=== PATIENT | female | born 1950 | race Caucasian/White ===

== ENCOUNTER → 2019-09-23 15:11 | Outpatient (BNVA) | payer MEDICARE, BC, SELFPAY | PROVIDERS: Family Provider Family Medicine; PCP Family Medicine; Visit Provider Family Medicine | DX: E11.9 Type 2 diabetes mellitus without complications (principal); I15.0 Renovascular hypertension; E78.1 Pure hyperglyceridemia; R53.83 Other fatigue | CPT/HCPCS: 36415; 80053; 80061; 82044; 83036; 84443; 85007; 85027 ==

== ENCOUNTER → 2019-10-19 14:45 | Outpatient (BNVA) | payer MEDICARE, BC, SELFPAY | PROVIDERS: Family Provider Family Medicine; PCP Family Medicine; Visit Provider Specialist | DX: G31.84 Mild cognitive impairment of uncertain or unknown etiology (principal) | CPT/HCPCS: 96116; 99213 ==

== ENCOUNTER 2020-01-20 13:34 | Outpatient (CLI) | payer MEDICARE, BC, SELFPAY ==
--- NOTE | 2020-01-20 13:00 | MM_ITS ---
WS: [id number] BILATERAL DIGITAL SCREENING MAMMOGRAM WITH CAD CLINICAL INFORMATION: MAMMOGRAM HISTORY: Screening mammogram. No current complaints. COMPARISON: August 22, 2018 TECHNIQUE: Bilateral CC and MLO views. FINDINGS: Fatty-replaced breasts bilaterally. No suspicious focal mass, asymmetry, calcifications, or technology architect ural distortion. No evidence of malignancy. MM/[place] [id number] IMPRESSION: BI-RADS: 1-Negative FOLLOW UP: 1 Year Follow-up Recommend return to annual screening mammography.
--- NOTE | 2020-01-20 13:41 | XR_ITS ---
WS: [id number] DEXA (DUAL ENERGY X-RAY ABSORPTIOMETRY) Bone mineral density was performed using a [employer] machine. HISTORY: DEXA. POSTMENOPAUSAL STATUS COMPARISON: None available. Lumbar spine BMD (L1-L4): 1.005 g/cm2 T score: -1.5 Z score: -0.1 Total hip BMD: Left: 0.843 g/cm2. T score: -1.3 Z score: -0.1 Right: 0.869 g/cm2. T score: -1.1 Z score: 0.1 10 year probability of a major osteoporotic fracture is 26%. XR/XR DEXA axial skeleton* [id number] IMPRESSION: OSTEOPENIA based upon the WHO classification for females.
== END 2020-01-20 13:35 | disposition home or self-care (01) ==
LOC: RADSHAW 13:38
PROVIDERS: Family Provider Family Medicine; PCP Family Medicine; Visit Provider Family Medicine
DX: Z78.0 Asymptomatic menopausal state (principal); Z12.31 Encounter for screening mammogram for malignant neoplasm of breast; M85.89 Other specified disorders of bone density and structure, multiple sites
CPT/HCPCS: 77067; 77080

== ENCOUNTER 2020-01-22 10:22 | Outpatient (CLI) | payer MEDICARE, BC, SELFPAY ==
--- NOTE | 2020-01-22 10:29 | XR_ITS ---
WS: [id number] KNEE RIGHT TECHNIQUE: 3 views of the right knee CLINICAL INFORMATION: right knee pain COMPARISON: None. FINDINGS: Normal anatomic alignment. Mild degenerative arthritis with medial compartment narrowing. No acute fr actures. Degenerative narrowing at the patellofemoral articulation. No significant effusion. Mild sof t tissue edema. XR/XR knee RT 3V* [id number] IMPRESSION: Mild tricompartmental arthritis. No acute fractures.
== END 2020-01-22 10:23 | disposition home or self-care (01) ==
LOC: RADWPI 10:28
PROVIDERS: Family Provider Family Medicine; PCP Family Medicine; Visit Provider Family Medicine
DX: E11.9 Type 2 diabetes mellitus without complications (principal); I10 Essential (primary) hypertension; J30.2 Other seasonal allergic rhinitis; M13.861 Other specified arthritis, right knee
CPT/HCPCS: 73562; 80053; 80061; 83036; 85025

== ENCOUNTER 2020-03-04 11:12 | Outpatient (CLI) | payer MEDICARE, BC, SELFPAY ==
--- NOTE | 2020-03-04 11:51 | XR_ITS ---
WS: [id number] XR shoulder LT min 2V* [id number] REASON FOR EXAM: left shoulder pain FINDINGS: The acromioclavicular joints were normal. The glenoid humeral articulations normal. The clavicle and scapula were normal. XR/XR shoulder LT min 2V* [id number] IMPRESSION: Negative left shoulder.
== END 2020-03-04 11:13 | disposition home or self-care (01) ==
LOC: RADWPI 11:17
PROVIDERS: Family Provider Family Medicine; PCP Family Medicine; Visit Provider Family Medicine
DX: M25.512 Pain in left shoulder (principal)
CPT/HCPCS: 73030

== ENCOUNTER 2020-05-04 07:25 | Outpatient (RCR) | payer MEDICARE, BC, SELFPAY | END 2020-05-16 23:59 | disposition home or self-care (01) | LOC: SPT 07:25 | PROVIDERS: PCP Family Medicine; Referring Provider Family Medicine; Visit Provider Family Medicine | DX: M25.512 Pain in left shoulder (principal) | CPT/HCPCS: 97110; 97140; 97161 ==

== ENCOUNTER → 2020-07-11 10:47 | Outpatient (BNVA) | payer MEDICARE, BC, SELFPAY | PROVIDERS: PCP Family Medicine; Visit Provider Family Medicine | DX: E11.9 Type 2 diabetes mellitus without complications (principal) | CPT/HCPCS: 80053; 83036 ==

== ENCOUNTER → 2020-10-17 12:38 | Outpatient (BNVA) | payer MEDICARE, BC, SELFPAY | PROVIDERS: PCP Family Medicine; Visit Provider Specialist | DX: G31.84 Mild cognitive impairment of uncertain or unknown etiology (principal) | CPT/HCPCS: 96116; 99214 ==

== ENCOUNTER → 2021-01-12 15:18 | Outpatient (BNVA) | payer MEDICARE, BC, SELFPAY | PROVIDERS: PCP Family Medicine; Visit Provider Family Medicine | DX: E11.9 Type 2 diabetes mellitus without complications (principal); I10 Essential (primary) hypertension; Z68.35 Body mass index [BMI] 35.0-35.9, adult | CPT/HCPCS: 80053; 83036 ==

== ENCOUNTER 2021-02-04 13:08 | Emergency (ER) | payer MEDICARE, BC, SELFPAY ==
[2021-02-04 13:14] VITALS: BP 125/76; PULSE 93; RESP 16; TEMP 36.9; O2SAT 98; BMI 34.0
[2021-02-04 13:20] VITALS: RESP 18
--- NOTE | 2021-02-04 13:28 | W.ED.EXTPRO ---
HPI - Extremity Problem General: Chief complaint: Extremity Injury, Lower Stated complaint: pain in both knees Time Seen by Provider: 02/04/21 13:22 Source: patient, family, RN notes reviewed and old records reviewed History of Present Illness: HPI Narrative: This patient presents to the emergency department after having a fall at home when she was trying to get her pet. Patient landed on both knees. Patient is complaining bilateral knee pain but does ambulate in the emergency department without much difficulty. Patient does have chronic issues with her knee and ambulation at times. Patient has no signs of injury and no swelling. MD Complaint: extremity pain Onset (ago): hour(s) Pain Consistency: constant Location: left, right and knee Severity scale (1-10): 3 Radiation: none Relieving factors: rest Exacerbating factors: walking Associated symptoms: Reports no associated symptoms; Deny chest pain, fever(s) or rash Review of Systems General: Reports: 10 or more systems reviewed and unremarkable except in HPI and below Const: Denies: fever(s), chills, body aches or fatigue Eyes: Denies: change in vision or blurry vision ENMT: Denies: throat pain, hoarseness or mouth pain Card: Denies: chest pain, palpitations, irregular heart rhythm, edema, swelling of feet/ankles or lightheadedness Resp: Denies: dyspnea, productive cough, non-productive cough, wheezing or pain on inspiration GI: Reports: abdominal pain; Denies: nausea or vomiting : Reports: flank pain; Denies: difficulty voiding, dysuria, urinary frequency, urinary urgency or urinary hesitancy Musc: Reports: joint pain; Denies: neck pain, back pain, extremity pain, extremity swelling, joint swelling, joint redness, joint warmth or limited range of motion Skin/Breast: Denies: rash, pruritus, erythema or skin tenderness Neuro: Denies: headache(s), numbness in extremities or weakness in extremities Psych: Denies: anxiety or depression PFS ED PFSH: Medical History (Updated 02/04/21 @ 13:31 by Doni Wooten MD) Cognitive impairment COPD (chronic obstructive pulmonary disease) Enrolled in chronic care management Essential (primary) hypertension Hypertriglyceridemia Seasonal allergies TIA (transient ischemic attack) Type 2 diabetes mellitus, without long-term current use of insulin Surgical History H/O section H/O lithotripsy S/P appendectomy S/P cholecystectomy S/P gastric bypass S/P hernia repair S/P nasal surgery S/P tonsillectomy and adenoidectomy S/P tubal ligation Family History Father CAD (coronary artery disease) Mother Parkinson disease Stroke Other Hypertension Social History Smoking and tobacco status: never smoked Alcohol intake: never Marital status: Current occupational status: retired Female Reproductive History: Para: 3 Spontaneous abortions: Yes Physical Exam Const: COMMON NORMALS: no acute distress, average body habitus, patient oriented x3, no limitations, healthy appearing, alert and well nourished HENMT: COMMON NORMALS: normocephalic, atraumatic, external ears normal, EAC's normal, TM's normal bilaterally, Normal external nose present and Normal nasal mucous membranes and turbinates present HEAD & SCALP: normocephalic and atraumatic NOSE: Normal external nose present and Normal nasal mucous membranes and turbinates present EXTERNAL EAR: Yes external ears normal EXTERNAL AUDITORY CANAL: EAC's normal TYMPANIC MEMBRANE: TM's normal bilaterally Neck/C-Spine: COMMON NORMALS: full ROM, no lymphadenopathy, supple, no meningeal signs, no JVD, Thyroid normal and No carotid bruits THYROID: Thyroid normal Chest: COMMONS NORMALS: normal inspection of the chest, normal palpation of entire chest wall, normal inspection of the breasts and normal palpation of the breasts Breast/axilla inspection: Yes normal inspection of the breasts BREAST/AXILLA PALPATION: Yes normal palpation of the breasts Resp: COMMON NORMALS: normal respiratory effort, No retractions, No use of accessory muscles, clear to auscultation bilaterally and percussion normal AUSCULTATION: clear to auscultation bilaterally PERCUSSION: percussion normal Cardio: COMMON NORMALS: no JVD, regular rate, regular rhythm, S1 normal heart sound present, S2 normal heart sound present, No gallops present (Cardio), No clicks present (Cardio), No murmurs present (Cardio), No rub (Cardio) and Peripheral pulses 2+ throughout RATE: regular rate RHYTHM: regular rhythm HEART SOUNDS: S1 normal heart sound present and S2 normal heart sound present PERIPHERAL PULSES: Peripheral pulses 2+ throughout GI: COMMON NORMALS: Normal to inspection, nondistended, normoactive bowel sounds present, Soft to palpation, non-tender, No hepatosplenomegaly present, no masses and no bruits PALPATION: Yes Soft to palpation and Yes No hepatosplenomegaly present : COMMON NORMALS: Yes no CVA tenderness, Yes normal external appearance, Yes normal appearance of the vagina, Yes normal appearance of the cervix, Yes normal bimanual exam, Yes No adnexal tenderness and Yes no masses BLADDER/KIDNEY EXAM: Yes no CVA tenderness BIMANUAL EXAM - VAGINA & UTERUS: Yes normal bimanual exam Back/Pelvis: COMMON NORMALS: no CVA tenderness, thoracic and lumbar spine normal to inspection, no thoracic nor lumbar tenderness, thoraco-lumbar ROM normal and straight leg raise negative bilaterally Extremity: COMMON NORMALS: normal to inspection, full ROM, capillary refill normal, no joint enlargement, no clubbing, cyanosis or edema, no calf tenderness and no pedal edema RIGHT LOWER EXTREMITY: Yes knee joint (Mild tenderness to the patella tendon of the kneecap otherwise normal exam) Neuro: COMMON NORMALS: patient oriented x3 SENSORIUM/ORIENTATION: Yes alert MENINGEAL SIGNS: Yes no meningeal signs Course Reevaluation(s): Reevaluation #1: Patient is to have an Oscar wrap applied to the right knee area. Rest ice and elevation as instructed. Follow-up with primary care physician in 2 to 3 days if not improved Time: 13:30 Vital Signs: Vital signs: Vital Signs Temperature 98.5 F 02/04/21 13:14 Pulse Rate 93 02/04/21 13:14 Respiratory Rate 16 02/04/21 13:14 Blood Pressure 125/76 02/04/21 13:14 Pulse Oximetry 98 02/04/21 13:14 MDM - Extremity (Nontraumatic) MDM Narrative: Medical decision making narrative: This patient presents to the emergency department after having a fall at home when she was trying to get her pet. Patient landed on both knees. Patient is complaining bilateral knee pain but does ambulate in the emergency department without much difficulty. Patient does have chronic issues with her knee and ambulation at times. Patient has no signs of injury and no swelling. No x-rays needed. Patient ambulates in the ER plan possible knee sprain. Patient is to have an Oscar wrap applied to the right knee area. Rest ice and elevation as instructed. Follow-up with primary care physician in 2 to 3 days if not improved Discharge Plan Discharge Patient Disposition: Home Clinical Impression: Knee sprain Condition: Stable Prescriptions: New diclofenac sodium 75 mg tablet,delayed release (DR/EC) 75 mg PO BID PRN (Reason: pain) Qty: 20 RF: 0 No Action lisinopril 40 mg tablet 40 mg PO DAILY Qty: 90 RF: 0 metformin 500 mg tablet extended release 24 hr 500 mg PO DAILY Qty: 90 RF: 0 aspirin 325 mg tablet 325 mg PO DAILY RF: 0 calcium carbonate [Calcium 600] 600 mg calcium (1,500 mg) tablet 600 mg PO BID RF: 0 cholecalciferol (vitamin D3) 5,000 unit capsule 5,000 unit PO ONCE RF: 0 thiamine HCl (vitamin B1) 250 mg tablet 250 mg PO ONCE RF: 0 Complete Multivitamin Tablet 1 tab PO BID RF: 0 mecobalamin (vitamin B12) 1,000 mcg tablet,disintegrating 1,000 mcg SUBLINGUAL ONCE RF: 0 amlodipine [Norvasc] 5 mg tablet 5 mg PO DAILY Qty: 90 RF: 0 (DME) FreeStyle Adriel 14 Day Sensor Kit See Rx Instructions .ROUTE .MEDSUPPLY Qty: 2 RF: 5 (DME) FreeStyle Adriel 14 Day [place] Misc See Rx Instructions .ROUTE .MEDSUPPLY Qty: 1 RF: 0 prednisone 20 mg tablet 20 mg PO DAILY 5 Days Qty: 5 RF: 0 doxycycline hyclate 100 mg tablet 100 mg PO BID 7 Days Qty: 14 RF: 0 rivastigmine 4.6 mg/24 hr patch 24 hour 4.6 mg TRANSDERMA DAILY Qty: 30 RF: 11 Discharge Orders: Discharge ED (Routine); Ordered 02/04/21 Ordered By: Doni Wooten Referrals: Amie Aaron DO [Primary Care Provider] - Discharge Diet: Advance as tolerated Discharge Activity: Increase activity as tolerated Patient Instructions: Opioid Safety Activity Restrictions/Additional Instructions: Patient is to have an Oscar wrap applied to the right knee area. Rest ice and elevation as instructed. 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
[2021-02-04 13:45] VITALS: RESP 18
== END 2021-02-04 13:46 | disposition home or self-care (01) ==
PROVIDERS: Emergency Provider Emergency Medicine; PCP Family Medicine
DX: S83.90XA Sprain of unspecified site of unspecified knee, initial encounter (principal); Z79.82 Long term (current) use of aspirin; Z79.84 Long term (current) use of oral hypoglycemic drugs; J44.9 Chronic obstructive pulmonary disease, unspecified; I10 Essential (primary) hypertension; E11.9 Type 2 diabetes mellitus without complications; Z86.73 Personal history of transient ischemic attack (TIA), and cerebral infarction without residual deficits; W19.XXXA Unspecified fall, initial encounter
CPT/HCPCS: 99282

== ENCOUNTER → 2021-04-18 14:37 | Outpatient (BNVA) | payer MEDICARE, BC, SELFPAY | PROVIDERS: PCP Family Medicine; Visit Provider Specialist | DX: G30.9 Alzheimer's disease, unspecified (principal); F02.80 Dementia in other diseases classified elsewhere, unspecified severity, without behavioral disturbance, psychotic disturbance, mood disturbance, and anxiety; D50.9 Iron deficiency anemia, unspecified; E11.9 Type 2 diabetes mellitus without complications; Z79.84 Long term (current) use of oral hypoglycemic drugs; R20.0 Anesthesia of skin; R20.2 Paresthesia of skin | CPT/HCPCS: 96116; 99215 ==

== ENCOUNTER 2021-04-18 16:34 | Outpatient (CLI) | payer MEDICARE, BC, SELFPAY ==
[2021-04-18 17:33] LABS: Basophils # 0.1 10^3/uL (0.0-0.1); Basophils % 1.4 %; Eosinophils # 0.2 10^3/uL (0.0-0.8); Eosinophils % 4.3 %; Hematocrit 21.6 % (37.0-47.0); Lymphocytes # 1.9 10^3/uL (0.8-4.8); Lymphocytes % 36.4 %; Mean Corpuscular HGB Conc 25.9 g/dL (30.0-36.0); Mean Corpuscular Hemoglobin 17.3 pg (28.0-34.0); Mean Corpuscular Volume 66.9 fL (81-99); Mean Platelet Volume 9.2 fL (7.4-10.4); Monocytes # 0.5 10^3/uL (0.2-0.9); Monocytes % 9.5 %; Neutrophils # 2.48 10^3/uL (1.8-7.7); Neutrophils % 48.2 %; Nucleated Red Blood Cells % 0 %; Platelet Count 457 10^3/cmm (130-400); Red Blood Count 3.23 10^6/uL (4.1-5.3); Red Cell Distribution Width 17.1 % (12.1-15.1); White Blood Count 5.1 10^3/uL (4.0-10.0)
[2021-04-18 17:43] LABS: Hemoglobin 5.6 g/dL (11.5-15.3)
[2021-04-18 17:51] LABS: Alanine Aminotransferase 12 U/L (0-33); Albumin Level 4.2 g/dL (3.5-5.2); Alkaline Phosphatase 122 IU/L (35-105); Aspartate Amino Transferase 22 U/L (0-32); Blood Urea Nitrogen 8 mg/dL (8-23); Carbon Dioxide 26 mmol/L (22-29); Chloride 107 mmol/L (98-107); Ferritin 5 ng/mL (15-150); Globulin 2.8 g/dL (1.3-4.6); Glucose 151 mg/dL (65-115); Osmolality Calculated 295 mOsm/kg (285-295); Sodium 142 mmol/L (136-145); Thyroid Stimulating Hormone 1.51 uIU/mL (0.27-4.20); Total Bilirubin 0.5 mg/dL (0.15-1.2)
== END 2021-04-18 16:35 | disposition home or self-care (01) ==
PROVIDERS: PCP Family Medicine; Visit Provider Specialist
DX: R20.0 Anesthesia of skin (principal); R20.2 Paresthesia of skin; E11.9 Type 2 diabetes mellitus without complications
CPT/HCPCS: 80053; 82728; 84443; 85025

== ENCOUNTER 2021-04-18 21:12 | Observation (INO) | payer MEDICARE, BC, SELFPAY ==
[2021-04-18 21:58] VITALS: BP 172/74; PULSE 102; RESP 18; TEMP 36.9; O2SAT 97; BMI 34.0
[2021-04-18 22:13] LABS: Basophils # 0.1 10^3/uL (0.0-0.1); Basophils % 0.8 %; Eosinophils # 0.3 10^3/uL (0.0-0.8); Eosinophils % 3.8 %; Lymphocytes # 2.3 10^3/uL (0.8-4.8); Lymphocytes % 30.6 %; Mean Corpuscular HGB Conc 25.7 g/dL (30.0-36.0); Mean Corpuscular Hemoglobin 17.6 pg (28.0-34.0); Mean Corpuscular Volume 68.4 fL (81-99); Mean Platelet Volume 9.2 fL (7.4-10.4); Monocytes # 0.5 10^3/uL (0.2-0.9); Monocytes % 7.3 %; Neutrophils # 4.24 10^3/uL (1.8-7.7); Neutrophils % 57.2 %; Nucleated Red Blood Cells % 0 %; Platelet Count 444 10^3/cmm (130-400); Red Blood Count 3.07 10^6/uL (4.1-5.3); Red Cell Distribution Width 17.4 % (12.1-15.1); White Blood Count 7.4 10^3/uL (4.0-10.0)
[2021-04-18 22:16] LABS: Hemoglobin 5.4 g/dL (11.5-15.3)
[2021-04-18 22:31] LABS: INR 0.94 (0.8-1.2)
[2021-04-18 22:32] LABS: Partial Thromboplastin Time 27.2 SECONDS (23.9-36.7)
[2021-04-18 22:37] LABS: Alanine Aminotransferase 12 U/L (0-33); Alkaline Phosphatase 124 IU/L (35-105); Anion Gap 15.9 (5-19); Aspartate Amino Transferase 22 U/L (0-32); Blood Urea Nitrogen 10 mg/dL (8-23); Calcium 8.9 mg/dL (8.5-10.5); Carbon Dioxide 23 mmol/L (22-29); Chloride 106 mmol/L (98-107); Creatinine Clr Calc Pharmacy 73.5631; Globulin 2.4 g/dL (1.3-4.6); Glucose 122 mg/dL (65-115); Osmolality Calculated 292 mOsm/kg (285-295); Potassium 3.9 mmol/L (3.5-5.1); Sodium 141 mmol/L (136-145); Total Bilirubin 0.5 mg/dL (0.15-1.2); Total Protein 6.4 g/dL (6.6-8.7)
[2021-04-18 23:26] LABS: Iron 13 ug/dL (37-145); Percent Saturation 2.6 % (20-50); Total Iron Binding Capacity 486 mcg/dl; Unsaturated Iron Binding 473 ug/dL (112-347)
[2021-04-19] VITALS (20 sets, daily range): BP systolic 110–163; BP diastolic 59–84; PULSE 67–94; RESP 16–18; TEMP 36.3–37.2; O2SAT 94–100; BMI 34.0
--- NOTE | 2021-04-19 00:05 | ED_ITS ---
HPI - General Adult General: Chief complaint: General Medical Stated complaint: phy ref from [facility]/blood transfusion Time Seen by Provider: 04/18/21 22:44 Source: patient Mode of arrival: ambulatory Limitations: no limitations History of Present Illness: HPI narrative: 70-year-old female who states she has been having some generalized weakness saw her physician today and had a hemoglobin of 5. She states that she has had quite a bit of fatigue. States she had anemia years ago and they were unsure what caused it. Her last hemoglobin here was 13 and today it is 5.4. Denies any vomiting or diarrhea. Denies any blood in her stool. She denies any worsening improving factors. Associated symptoms: Deny chest pain, dyspnea, headache(s), nausea, rash or vomiting Review of Systems Const: Reports: fatigue Eyes: Denies: blurry vision or eye discomfort ENMT: Denies: throat pain or dental pain Card: Denies: chest pain Resp: Denies: dyspnea GI: Denies: abdominal pain, nausea, vomiting or diarrhea : Denies: dysuria Musc: Denies: neck pain or back pain Skin/Breast: Denies: rash Neuro: Denies: headache(s) Psych: Denies: depression Mohan/Lymph: Denies: easy bruising All/Imm: Denies: urticaria PFSH ED PFSH: Medical History (Updated 04/19/21 @ 00:07 by Gwendolyn Driver MD) Cognitive impairment COPD (chronic obstructive pulmonary disease) Enrolled in chronic care management Essential (primary) hypertension Hypertriglyceridemia Seasonal allergies TIA (transient ischemic attack) Type 2 diabetes mellitus, without long-term current use of insulin Surgical History H/O section H/O lithotripsy S/P appendectomy S/P cholecystectomy S/P gastric bypass S/P hernia repair S/P nasal surgery S/P tonsillectomy and adenoidectomy S/P tubal ligation Family History Father CAD (coronary artery disease) Mother Parkinson disease Stroke Other Hypertension Social History Smoking and tobacco status: never smoked Alcohol intake: never Marital status: Current occupational status: retired Female Reproductive History: Para: 3 Spontaneous abortions: Yes Physical Exam Const: COMMON NORMALS: no acute distress and patient oriented x3 GENERAL APPEARANCE: ill appearing HENMT: COMMON NORMALS: normocephalic and atraumatic HEAD & SCALP: normocephalic and atraumatic Eye: COMMON NORMALS: Equal, round and reactive pupils present and EOMs intact bilaterally PUPIL: Yes Equal, round and reactive pupils present Neck/C-Spine: COMMON NORMALS: full ROM and supple Chest: COMMONS NORMALS: normal inspection of the chest and normal palpation of entire chest wall Resp: COMMON NORMALS: normal respiratory effort, No retractions, No use of accessory muscles and clear to auscultation bilaterally AUSCULTATION: clear to auscultation bilaterally Cardio: COMMON NORMALS: regular rate, regular rhythm and No murmurs present (Cardio) RATE: regular rate RHYTHM: regular rhythm GI: COMMON NORMALS: Normal to inspection, nondistended, normoactive bowel sounds present, Soft to palpation, non-tender and no masses PALPATION: Yes Soft to palpation Extremity: COMMON NORMALS: normal to inspection and full ROM Neuro: COMMON NORMALS: patient oriented x3, moves all extremities and no focal motor deficits Psych: COMMON NORMALS: mental status grossly normal, Normal thought process present and cooperative THOUGHT PROCESS: Normal thought process present Skin: COMMON NORMALS: no rashes or lesions noted and no wounds NARRATIVE SKIN EXAM: pale GENERAL SKIN EXAM: no rashes or lesions noted Course Vital Signs: Vital signs: Vital Signs Temperature 98.4 F 04/18/21 21:58 Pulse Rate 102 H 04/18/21 21:58 Respiratory Rate 18 04/18/21 21:58 Blood Pressure 172/74 04/18/21 21:58 Pulse Oximetry 97 04/18/21 21:58 MDM - General Adult MDM Narrative: Medical decision making narrative: Patient presents here with anemia. She does have a low iron level and could be iron deficiency anemia. Her blood pressure here is normal. Rectal exam here showed no blood and she has no signs of bleeding. Spoke to hospitalist will admit for observation and will transfuse. Lab Data: Labs: Lab Results 04/18/21 04/18/21 04/18/21 Range/Units 21:55 21:55 21:55 WBC 7.4 (4.0-10.0) 10^3/ uL RBC 3.07 L (4.1-5.3) 10^6/u L Hgb 5.4 L* (11.5-15.3) g/dL Hct 21.0 L (37.0-47.0) % MCV 68.4 L (81-99) fL MCH 17.6 L (28.0-34.0) pg MCHC 25.7 L (30.0-36.0) g/dL RDW 17.4 H (12.1-15.1) % Plt Count 444 H (130-400) 10^3/c mm MPV 9.2 (7.4-10.4) fL Neut % (Auto) 57.2 % Lymph % (Auto) 30.6 % [place] % (Auto) 7.3 % Eos % (Auto) 3.8 % Baso % (Auto) 0.8 % Neut # (Auto) 4.24 (1.8-7.7) 10^3/u L Lymph # (Auto) 2.3 (0.8-4.8) 10^3/u L [place] # (Auto) 0.5 (0.2-0.9) 10^3/u L Eos # (Auto) 0.3 (0.0-0.8) 10^3/u L Baso # (Auto) 0.1 (0.0-0.1) 10^3/u L Nucleated RBC % (a uto) 0 % Nucleated RBCs # 0.0 /100WBC PT (12.1-14.9) SECO NDS INR (0.8-1.2) APTT (23.9-36.7) SECO NDS Sodium 141 (136-145) mmol/L Potassium 3.9 (3.5-5.1) mmol/L Chloride 106 (98-107) mmol/L Carbon Dioxide 23 (22-29) mmol/L Anion Gap 15.9 (5-19) BUN 10 (8-23) mg/dL Creatinine 0.5 (0.5-0.9) mg/dL GFR Calculation 122.0 (90-130) mL/min Glucose 122 H (65-115) mg/dL Calculated Osmolal ity 292 (285-295) mOsm/k g Calcium 8.9 (8.5-10.5) mg/dL Iron (37-145) ug/dL TIBC mcg/dl % Saturation (20-50) % Unsat Iron Binding (112-347) ug/dL Total Bilirubin 0.5 (0.15-1.2) mg/dL AST 22 (0-32) U/L ALT 12 (0-33) U/L Alkaline Phosphata se 124 H (35-105) IU/L Total Protein 6.4 L (6.6-8.7) g/dL Albumin 4.0 (3.5-5.2) g/dL Globulin 2.4 (1.3-4.6) g/dL Blood Type A Negative Rho(D) Type Negative / 0 Antibody Screen Negative Crossmatch See Detail 04/18/21 04/18/21 Range/Units 21:55 22:00 WBC (4.0-10.0) 10^3/ uL RBC (4.1-5.3) 10^6/u L Hgb (11.5-15.3) g/dL Hct (37.0-47.0) % MCV (81-99) fL MCH (28.0-34.0) pg MCHC (30.0-36.0) g/dL RDW (12.1-15.1) % Plt Count (130-400) 10^3/c mm MPV (7.4-10.4) fL Neut % (Auto) % Lymph % (Auto) % [place] % (Auto) % Eos % (Auto) % Baso % (Auto) % Neut # (Auto) (1.8-7.7) 10^3/u L Lymph # (Auto) (0.8-4.8) 10^3/u L [place] # (Auto) (0.2-0.9) 10^3/u L Eos # (Auto) (0.0-0.8) 10^3/u L Baso # (Auto) (0.0-0.1) 10^3/u L Nucleated RBC % (a uto) % Nucleated RBCs # /100WBC PT 12.90 (12.1-14.9) SECO NDS INR 0.94 (0.8-1.2) APTT 27.2 (23.9-36.7) SECO NDS Sodium (136-145) mmol/L Potassium (3.5-5.1) mmol/L Chloride (98-107) mmol/L Carbon Dioxide (22-29) mmol/L Anion Gap (5-19) BUN (8-23) mg/dL Creatinine (0.5-0.9) mg/dL GFR Calculation (90-130) mL/min Glucose (65-115) mg/dL Calculated Osmolal ity (285-295) mOsm/k g Calcium (8.5-10.5) mg/dL Iron 13 L (37-145) ug/dL TIBC 486 mcg/dl % Saturation 2.6 L (20-50) % Unsat Iron Binding 473 H (112-347) ug/dL Total Bilirubin (0.15-1.2) mg/dL AST (0-32) U/L ALT (0-33) U/L Alkaline Phosphata se (35-105) IU/L Total Protein (6.6-8.7) g/dL Albumin (3.5-5.2) g/dL Globulin (1.3-4.6) g/dL Blood Type Rho(D) Type Antibody Screen Crossmatch Discharge Plan Discharge Patient Disposition: Admitted As Inpatient Clinical Impression: Anemia Condition: Stable Prescriptions: No Action lisinopril 40 mg tablet 40 mg PO DAILY Qty: 90 RF: 0 metformin 500 mg tablet extended release 24 hr 500 mg PO DAILY Qty: 90 RF: 0 aspirin 325 mg tablet 325 mg PO DAILY RF: 0 calcium carbonate [Calcium 600] 600 mg calcium (1,500 mg) tablet 600 mg PO BID RF: 0 cholecalciferol (vitamin D3) 5,000 unit capsule 5,000 unit PO ONCE RF: 0 Complete Multivitamin Tablet 1 tab PO BID RF: 0 mecobalamin (vitamin B12) 1,000 mcg tablet,disintegrating 1,000 mcg SUBLINGUAL ONCE RF: 0 amlodipine [Norvasc] 5 mg tablet 5 mg PO DAILY Qty: 90 RF: 0 (DME) FreeStyle Adriel 14 Day [place] Misc See Rx Instructions .ROUTE .MEDSUPPLY Qty: 1 RF: 0 rivastigmine 4.6 mg/24 hour patch 24 hour 4.6 mg TRANSDERMA DAILY Qty: 30 RF: 11 prednisone 20 mg tablet 20 mg PO DAILY 5 Days Qty: 5 RF: 0 doxycycline hyclate 100 mg tablet 100 mg PO BID 7 Days Qty: 14 RF: 0 (DME) FreeStyle Adriel 14 Day Sensor Kit See Rx Instructions .ROUTE .MEDSUPPLY Qty: 2 RF: 5 diclofenac sodium 75 mg tablet,delayed release (DR/EC) 75 mg PO BID PRN (Reason: pain) Qty: 20 RF: 0 Referrals: Amie Aaron DO [Primary Care Provider] - Coding Level of Care Code ED Private T[employer] 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
--- NOTE | 2021-04-19 00:05 | PM.HP ---
Providers/Chief Complaint Primary Care Provider: Amie Aaron DO Chief Complaint: phy ref from [facility]/blood transfusion History of Present Illness Roya Aguilar is a 70 year old female who presented with incidental finding of hemoglobin 5.4. Patient is stating that she did not notice any rectal bleed, hemoptysis, hematuria, there is no history of thalassemia, she has not noticed any chest pain, shortness of breath, fever. This has happened before when she required blood transfusion and there was no active bleeding. Other than fatigue she is not endorsing any other symptoms. Diagnostic work-up in the ER revealed hemoglobin 5.4 with normal hemodynamics, patient required 2 units PRBC microcytic anemia, started iron B12 and folic supplementation Fecal occult blood test negative rectal exam unremarkable Review of Systems Const: Reports: chills, body aches, change in weight and fatigue; Denies: fever(s) Eyes: Denies: change in vision ENMT: Denies: throat pain Card: Denies: chest pain Resp: Denies: dyspnea GI: Denies: abdominal pain : Denies: flank pain Musc: Denies: neck pain Skin/Breast: Denies: rash Neuro: Denies: headache(s) Psych: Denies: anxiety Endo: Denies: polyuria Mohan/Lymph: Reports: easy bruising and easy bleeding All/Imm: Denies: urticaria Medications/Allergies Home Medications Medication Instructions Recorded Confirmed Last Taken Type calcium carbonate 600 mg calcium 600 mg PO BID 09/10/19 04/18/21 Unknown History (1,500 mg) tablet cholecalciferol (vitamin D3) 125 5,000 unit PO ONCE 09/10/19 04/18/21 Unknown History mcg (5,000 unit) capsule mecobalamin (vitamin B12) 1,000 1,000 mcg SUBLINGUAL ONCE 09/10/19 04/18/21 Unknown History mcg disintegrating tablet,sublingual multivitamin,[id number] 1 tab PO BID tab 09/10/19 04/18/21 Unknown History flash glucose scanning reader #1 each 07/11/20 04/18/21 Unknown Rx aspirin 325 mg tablet 325 mg PO DAILY 08/08/20 04/18/21 Unknown History doxycycline hyclate 100 mg tablet 100 mg PO BID 7 Days #14 tab 11/12/20 04/18/21 Unknown Rx prednisone 20 mg tablet 20 mg PO DAILY 5 Days #5 tab 11/12/20 04/18/21 Unknown Rx amlodipine 5 mg tablet 5 mg PO DAILY #90 tab 01/12/21 04/18/21 Unknown Rx lisinopril 40 mg tablet 40 mg PO DAILY #90 tab 01/12/21 04/18/21 Unknown Rx metformin 500 mg tablet,extended 500 mg PO DAILY #90 tab 01/12/21 04/18/21 Unknown Rx release 24 hr diclofenac sodium 75 mg PO BID PRN #20 tab 02/04/21 04/18/21 Unknown Rx flash glucose sensor #2 each 02/15/21 04/18/21 Unknown Rx rivastigmine 4.6 mg TRANSDERMA DAILY #30 each 04/18/21 04/18/21 Unknown Rx Allergies Allergy/AdvReac Type Severity Reaction Status Date / Time baclofen Allergy Unknown Verified 04/18/21 22:01 donepezil Allergy Unknown Verified 04/18/21 22:01 pregabalin [From Lyrica] Allergy Unknown Verified 04/18/21 22:01 tuberculin, purified protein Allergy Unknown Verified 04/18/21 22:01 deriva PFSH Acute PFSH: Medical History Cognitive impairment COPD (chronic obstructive pulmonary disease) Enrolled in chronic care management Essential (primary) hypertension Hypertriglyceridemia Seasonal allergies TIA (transient ischemic attack) Type 2 diabetes mellitus, without long-term current use of insulin Surgical History H/O section H/O lithotripsy S/P appendectomy S/P cholecystectomy S/P gastric bypass S/P hernia repair S/P nasal surgery S/P tonsillectomy and adenoidectomy S/P tubal ligation Family History Father CAD (coronary artery disease) Mother Parkinson disease Stroke Other Hypertension Social History Smoking and tobacco status: never smoked Alcohol intake: never Marital status: Current occupational status: retired Female Reproductive History: Para: 3 Spontaneous abortions: Yes Vitals/I&O/Wt Last Vital Signs Temp 98.4 F 04/18/21 21:58 Pulse 102 H 04/18/21 21:58 Resp 18 04/18/21 21:58 BP 172/74 04/18/21 21:58 Pulse Ox 97 04/18/21 21:58 Weight last 48 hrs Weight 71.214 kg Physical Exam Narrative: EXAM NARRATIVE: Very pleasant cooperative female who was laying comfortably in her bed S1, S2 sinus rhythm no murmur appreciated No active signs of congestive heart failure Abdomen soft distended with obesity No acute respite distress saturating well on room air EOMI, PERRLA GCS 15 no neurological deficits Rectal exam unremarkable No joint swelling no cellulitis Data : 04/18/21 21:55 04/18/21 21:55 A&P Assessment and plan (1) Anemia: Status: Acute Qualifiers: Anemia type: unspecified type Qualified Code(s): D64.9 - Anemia, unspecified (2) Microcytic anemia: Status: Acute (3) Stomatitis and mucositis, unspecified: Status: Acute Additional A&P Information Severe microcytic anemia Hemoglobin 5.4 MCV 68 Patient has never been diagnosed with thalassemia no previous history of hemoglobin electrophoresis Patient not endorsing any chest pain or shortness of breath her only symptom is fatigue Start on iron, B12 and folic supplementation Rectal exam unremarkable no previous history of GI bleed Patient is not interested in getting hemoglobin electrophoresis Requested 2 units PRBC Outpatient endoscopy Diabetic consistent carb diet DVT prophylaxis SCDs Full code Attestations Medical Necessity Statement*: Anticipating discharge within 48 hours Time Spent in Patient Care: 16 - 35 minutes Coding Level of Care Code Acute Vice President Consulting Services for g Fwd Diagnoses Anemia D64.9 Anemia type: unspecified type Microcytic anemia D50.9 Stomatitis and mucositis, unspecified K12.1; K12.30
[2021-04-19] MEDS: sodium chloride 0.9% 250 ML (01:38)
--- NOTE | 2021-04-19 06:35 | ECG_ITS ---
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 Measurements Intervals [place] Rate: 70 P: 59 NM: 154 QRS: 18 QRSD: 73 T: 18 QT: 391 QTc: 422 Interpretive Statements SINUS RHYTHM NONSPECIFIC T-WAVE ABNORMALITY Compared to ECG 07/12/2017 09:02:43 T-wave abnormality now present Ventricular premature complex(es) no longer present Myocardial infarct finding no longer present Electronically Signed On 04-19-2021 20:28:04 CDT by Cheyanne Jessica M.D. [id number]
[2021-04-19 06:55] LABS: Basophils # 0.1 10^3/uL (0.0-0.1); Basophils % 1.3 %; Eosinophils # 0.2 10^3/uL (0.0-0.8); Hematocrit 25.3 % (37.0-47.0); Hemoglobin 7.2 g/dL (11.5-15.3); Lymphocytes # 1.5 10^3/uL (0.8-4.8); Lymphocytes % 32.1 %; Mean Corpuscular HGB Conc 28.5 g/dL (30.0-36.0); Mean Corpuscular Hemoglobin 19.9 pg (28.0-34.0); Mean Corpuscular Volume 70.1 fL (81-99); Mean Platelet Volume 8.8 fL (7.4-10.4); Monocytes # 0.5 10^3/uL (0.2-0.9); Monocytes % 11.1 %; Neutrophils # 2.33 10^3/uL (1.8-7.7); Neutrophils % 50.5 %; Nucleated Red Blood Cells % 0 %; Platelet Count 334 10^3/cmm (130-400); Red Blood Count 3.61 10^6/uL (4.1-5.3); Red Cell Distribution Width 19.8 % (12.1-15.1); White Blood Count 4.6 10^3/uL (4.0-10.0)
[2021-04-19 07:20] LABS: Troponin T (5th) Once 10 ng/L (0-10)
[2021-04-19 07:26] LABS: Glucose Point of Care 141 mg/dL (70-110)
[2021-04-19] MEDS: folic acid 1 mg Tablet PO (08:42)
[2021-04-19] MEDS: cyanocobalamin 1,000 mcg Tablet 1000 MCG PO (08:42)
[2021-04-19] MEDS: pantoprazole DR 40 mg Tablet PO (08:42)
[2021-04-19] MEDS: lisinopril 20 mg Tablet 40 MG PO (09:01)
[2021-04-19] MEDS: amlodipine 5 mg Tablet PO (09:01)
[2021-04-19] MEDS: iron polysaccharide complex 150 mg Capsule PO (09:01)
--- NOTE | 2021-04-19 10:26 | PC.NURSE ---
Unable to reconcile patient's home medications, Ramsey, patient's will bring patients daily medications when he comes to visit.
--- NOTE | 2021-04-19 14:00 | PM.DCS ---
Discharge Providers Date of Admission: 04/19/21 00:02 Date of Discharge: April 19, 2021 Attending Provider at Admission: Martin Trujillo MD Attending Provider at Discharge: Mannie Simpson MD Primary Care Provider: Amie Aaron DO Diagnoses at Discharge Discharge Diagnosis (1) Anemia: Qualifiers: Anemia type: unspecified type Qualified Code(s): D64.9 - Anemia, unspecified (2) Microcytic anemia: (3) Stomatitis and mucositis, unspecified: Reason for Visit Reason for Visit[facility] Hospital Course 70 year old female who presented with incidental finding of hemoglobin 5.4. Patient is stating that she did not notice any rectal bleed, hemoptysis, hematuria, there is no history of thalassemia, she has not noticed any chest pain, shortness of breath, fever. This has happened before when she required blood transfusion and there was no active bleeding. Other than fatigue she was not endorsing any other symptoms. Diagnostic work-up in the ER revealed hemoglobin 5.4 with normal hemodynamics, Fecal occult blood test negative rectal exam unremarkable.She was admitted for the management of symptomatic microcytic anemia.Received 3 U PRBC.She had similar problem in the past also with extensive work up by .Post transfusion H/H was stable , she denied any other active complain.She wished to follow her pcp as well as an outpatient.She was discharged in stable condition to home. Physical Exam Const: COMMON NORMALS: patient oriented x3 HENMT: COMMON NORMALS: normocephalic and atraumatic HEAD & SCALP: normocephalic and atraumatic Chest: CHEST: Yes Symmetrical chest wall rise Resp: COMMON NORMALS: clear to auscultation bilaterally EFFORT & INSPECTION: Yes symmetric chest movement AUSCULTATION: clear to auscultation bilaterally Cardio: COMMON NORMALS: regular rate, regular rhythm, S1 normal heart sound present, S2 normal heart sound present, No gallops present (Cardio), No murmurs present (Cardio), No rub (Cardio) and Peripheral pulses 2+ throughout RATE: regular rate RHYTHM: regular rhythm HEART SOUNDS: S1 normal heart sound present and S2 normal heart sound present PERIPHERAL PULSES: Peripheral pulses 2+ throughout GI: COMMON NORMALS: Normal to inspection, nondistended, normoactive bowel sounds present, Soft to palpation, non-tender, No hepatosplenomegaly present and no masses AUSCULTATION: Yes normoactive bowel sounds PALPATION: Yes Soft to palpation and Yes No hepatosplenomegaly present RECTAL EXAM: deferred Extremity: COMMON NORMALS: no clubbing, cyanosis or edema and no pedal edema Neuro: COMMON NORMALS: patient oriented x3 Discharge Data Data Completed and Pending: Labs from last 24 hours 04/19/21 04/19/21 04/19/21 07:22 06:45 06:45 WBC 4.6 RBC 3.61 L Hgb 7.2 L D Hct 25.3 L MCV 70.1 L MCH 19.9 L D MCHC 28.5 L D RDW 19.8 H Plt Count 334 MPV 8.8 Neut % (Auto) 50.5 Lymph % (Auto) 32.1 Parke % (Auto) 11.1 Eos % (Auto) 5.0 Baso % (Auto) 1.3 Neut # (Auto) 2.33 Lymph # (Auto) 1.5 Parke # (Auto) 0.5 Eos # (Auto) 0.2 Baso # (Auto) 0.1 Nucleated RBC % (a uto) 0 Nucleated RBCs # 0.0 PT INR APTT Sodium Potassium Chloride Carbon Dioxide Anion Gap BUN Creatinine GFR Calculation Glucose POC Glucose 141 H Calculated Osmolal ity Calcium Iron TIBC % Saturation Unsat Iron Binding Total Bilirubin AST ALT Alkaline Phosphata se Troponin T Gen 5 n g/L 10 Total Protein Albumin Globulin Blood Type Rho(D) Type Antibody Screen Crossmatch 04/18/21 04/18/21 04/18/21 22:00 21:55 21:55 WBC RBC Hgb Hct MCV MCH MCHC RDW Plt Count MPV Neut % (Auto) Lymph % (Auto) Parke % (Auto) Eos % (Auto) Baso % (Auto) Neut # (Auto) Lymph # (Auto) Parke # (Auto) Eos # (Auto) Baso # (Auto) Nucleated RBC % (a uto) Nucleated RBCs # PT 12.90 INR 0.94 APTT 27.2 Sodium 141 Potassium 3.9 Chloride 106 Carbon Dioxide 23 Anion Gap 15.9 BUN 10 Creatinine 0.5 GFR Calculation 122.0 Glucose 122 H POC Glucose Calculated Osmolal ity 292 Calcium 8.9 Iron 13 L TIBC 486 % Saturation 2.6 L Unsat Iron Binding 473 H Total Bilirubin 0.5 AST 22 ALT 12 Alkaline Phosphata se 124 H Troponin T Gen 5 n g/L Total Protein 6.4 L Albumin 4.0 Globulin 2.4 Blood Type Rho(D) Type Antibody Screen Crossmatch 04/18/21 04/18/21 21:55 21:55 WBC 7.4 RBC 3.07 L Hgb 5.4 L* Hct 21.0 L MCV 68.4 L MCH 17.6 L MCHC 25.7 L RDW 17.4 H Plt Count 444 H MPV 9.2 Neut % (Auto) 57.2 Lymph % (Auto) 30.6 Parke % (Auto) 7.3 Eos % (Auto) 3.8 Baso % (Auto) 0.8 Neut # (Auto) 4.24 Lymph # (Auto) 2.3 Parke # (Auto) 0.5 Eos # (Auto) 0.3 Baso # (Auto) 0.1 Nucleated RBC % (a uto) 0 Nucleated RBCs # 0.0 PT INR APTT Sodium Potassium Chloride Carbon Dioxide Anion Gap BUN Creatinine GFR Calculation Glucose POC Glucose Calculated Osmolal ity Calcium Iron TIBC % Saturation Unsat Iron Binding Total Bilirubin AST ALT Alkaline Phosphata se Troponin T Gen 5 n g/L Total Protein Albumin Globulin Blood Type A Negative Rho(D) Type Negative / 0 Antibody Screen Negative Crossmatch See Detail Vitals: Last Vital Signs Temp 98.7 F 04/19/21 11:21 Pulse 74 04/19/21 11:21 Resp 18 04/19/21 11:21 BP 113/74 04/19/21 11:21 Pulse Ox 97 04/19/21 11:21 Discharge Plan Discharge Patient Disposition: Home Condition: Stable Prescriptions: New ferrous sulfate 325 mg (65 mg iron) tablet,delayed release (DR/EC) 325 mg PO DAILY Qty: 30 RF: 3 ascorbic acid (vitamin C) 500 mg tablet 500 mg PO DAILY Qty: 30 RF: 3 Continued lisinopril 40 mg tablet 40 mg PO DAILY Qty: 90 RF: 0 metformin 500 mg tablet extended release 24 hr 500 mg PO DAILY Qty: 90 RF: 0 aspirin 325 mg tablet 325 mg PO DAILY RF: 0 calcium carbonate [Calcium 600] 600 mg calcium (1,500 mg) tablet 600 mg PO BID RF: 0 cholecalciferol (vitamin D3) 5,000 unit capsule 5,000 unit PO ONCE RF: 0 Complete Multivitamin Tablet 1 tab PO BID RF: 0 mecobalamin (vitamin B12) 1,000 mcg tablet,disintegrating 1,000 mcg SUBLINGUAL ONCE RF: 0 amlodipine [Norvasc] 5 mg tablet 5 mg PO DAILY Qty: 90 RF: 0 (DME) FreeStyle Adriel 14 Day Dickens Misc See Rx Instructions .ROUTE .MEDSUPPLY Qty: 1 RF: 0 rivastigmine 4.6 mg/24 hour patch 24 hour 4.6 mg TRANSDERMA DAILY Qty: 30 RF: 11 prednisone 20 mg tablet 20 mg PO DAILY 5 Days Qty: 5 RF: 0 doxycycline hyclate 100 mg tablet 100 mg PO BID 7 Days Qty: 14 RF: 0 (DME) FreeStyle Adriel 14 Day Sensor Kit See Rx Instructions .ROUTE .MEDSUPPLY Qty: 2 RF: 5 diclofenac sodium 75 mg tablet,delayed release (DR/EC) 75 mg PO BID PRN (Reason: pain) Qty: 20 RF: 0 Discharge Orders: Discharge Order (Routine); Ordered 04/19/21 Ordered By: Mannie Simpson Other Ambulatory Orders: Complete Blood Count w/Auto (Routine) Timeframe: 2 Weeks Location: Determined by Patient Ordered By: Mannie Simpson Referrals: Gracy Hudson MD [Physician] - 05/17/21 1:00 pm Amie Aaron DO [Primary Care Provider] - 05/04/21 11:30 am Danie Garcia MD [Hospitalist] - 04/21/21 8:00 am (Will see Dr. Garcia around 9-9:30 ) Discharge Diet: Regular Discharge Activity: Resume usual activity Patient Instructions: Anemia, Blood Transfusion, Iron Supplements (By mouth), Opioid Safety Discharge Attestations Time Spent in Discharge Care*: less than 30 min Specific Discharge Activities: educating patient, educating and/or supporting family/caregiver, discussing with family independence case manager/social workers/dc planners, documenting/other paperwork and evaluating patient/reviewing data Status at Discharge: Cognitive status at discharge: cognitively intact, Behavioral status at discharge: cooperative, Functional status at discharge: independent ambulation Overall status at discharge: patient is back to baseline Quality Metrics Clinical Quality Measures During this hospital stay, did patient experience: None Coding Level of Care Code Acute Chg FW DC note Diagnoses Anemia D64.9 Anemia type: unspecified type Microcytic anemia D50.9 Stomatitis and mucositis, unspecified K12.1; K12.30
== END 2021-04-19 14:40 | disposition home or self-care (01) ==
LOC: ER 04-19 00:07 → ER IP 04-19 01:06 → OBGYN 04-19 05:03
PROVIDERS: Physician Assistant; Admitting Provider Internal Medicine; Emergency Provider Emergency Medicine; PCP Family Medicine; Visit Provider Internal Medicine
DX: D64.9 Anemia, unspecified (principal); D50.9 Iron deficiency anemia, unspecified; K12.1 Other forms of stomatitis; K12.30 Oral mucositis (ulcerative), unspecified; Z79.82 Long term (current) use of aspirin; Z79.52 Long term (current) use of systemic steroids; J44.9 Chronic obstructive pulmonary disease, unspecified; I10 Essential (primary) hypertension; E11.9 Type 2 diabetes mellitus without complications; Z86.73 Personal history of transient ischemic attack (TIA), and cerebral infarction without residual deficits; Z82.49 Family history of ischemic heart disease and other diseases of the circulatory system; Z82.3 Family history of stroke
CPT/HCPCS: 36416; 36430; 80053; 82962; 83540; 83550; 84484; 85025; 85610; 85730; 86850; 86900; 86920; 93005; 99285; G0378; J7050; P9016

== ENCOUNTER 2021-04-21 08:14 | Outpatient (CLI) | payer MEDICARE, BC, SELFPAY ==
[2021-04-21 09:00] LABS: Basophils # 0.1 10^3/uL (0.0-0.1); Basophils % 1.2 %; Eosinophils # 0.2 10^3/uL (0.0-0.8); Eosinophils % 4.3 %; Hemoglobin 9.1 g/dL (11.5-15.3); Lymphocytes # 1.1 10^3/uL (0.8-4.8); Lymphocytes % 21.7 %; Mean Corpuscular HGB Conc 28.4 g/dL (30.0-36.0); Mean Corpuscular Hemoglobin 21.3 pg (28.0-34.0); Mean Corpuscular Volume 74.9 fL (81-99); Mean Platelet Volume 9.2 fL (7.4-10.4); Monocytes # 0.5 10^3/uL (0.2-0.9); Monocytes % 9.8 %; Neutrophils # 3.07 10^3/uL (1.8-7.7); Neutrophils % 62.8 %; Nucleated Red Blood Cells % 0 %; Platelet Count 351 10^3/cmm (130-400); Red Blood Count 4.27 10^6/uL (4.1-5.3); Red Cell Distribution Width 22.7 % (12.1-15.1); White Blood Count 4.9 10^3/uL (4.0-10.0)
--- NOTE | 2021-04-21 09:58 | ONC FU_ITS ---
Dr. Garcia Patient Follow-Up Note Patient: Roya Aguilar Unit #: [id number]: 1950 Dicatated By: Danie Garcia M.D.Date of Visit:Apr 21, 2021 Onc Med Follow-up/Prog Note Chief Complaint: Anemia. History of Present Illness: This is a 71 year-old woman with iron deficiency anemia. She has hypertension, hyperlipidemia, and type II diabetes. She underwent gastric bypass in 2007. In the early part of February 2018 she had started feeling really sick , but mainly she had just been weak and tired. Her laboratory studies on 03/14/2018 included CBC showing hemoglobin 7.0 g with hematocrit 28.5%. The red cell indices were severely hypochromic/microcytic. The white blood cell count 7500 and the platelet count was 445,000. She was then seen in the emergency room at [facility] on 03/20/2018. Her hemoglobin at that time was 7.4 g. Her serum iron was low at 13 mcg/dL and her ferritin level was low at 2.6 ng/mL. They opted not to transfuse her. Her repeat CBC on 03/26/2018 showed further decline in the hemoglobin 6.8 g with hematocrit 22.2%. A had seen her initially on 03/28/2018. At that point she was given a transfusion of PRBC, and she began oral iron supplementation with ferrous sulfate. During subsequent follow-up, there was improvement in her blood count. As of 05/05/2018 the hemoglobin was up to 11.6 g with hematocrit 39%. However, her repeat CBC on 08/05/2018 showed hemoglobin back down to 7.2 g with white blood cell count 4700 and platelet count 390,000. The serum iron studies show transferrin saturation 7% with ferritin 27 ng/mL, consistent with iron deficiency. She was then given parenteral iron replacement with infusions of Injectafer on 08/15/2018 and 08/22/2018. She had a very good response with repeat CBC on 10/01/2018 showing hemoglobin normal at 15.2 g. Her transferrin saturation had increased to 41%. She was recommended to continue her regular follow-up with Dr. Aaron. During subsequent follow-up she had seen Dr. Hudson in regard to cognitive dysfunction. She had a scheduled follow-up visit with Dr. Hudson on 04/18/2021. She says she was not feeling bad, but her CBC showed hemoglobin very low at 5.4 g with hematocrit 21.0%. The red cell indices were hypochromic/microcytic. Her serum iron studies show transferrin saturation 2.6% with ferritin 5ng/mL, consistent with iron deficiency. She was admitted to the hospital and transfused PRBC. She is seen now for further management of the anemia. She says she feels wonderful. She has not been aware of any unusual weakness or fatigue, but she does have a relatively sedentary lifestyle. ECOG score is 1. Her appetite apparently has been okay. She says she has been restricting her diet to mainly apples, which to her seems to be healthy choice. Her weight is down 8 pounds since 2019. She does not have fever or night sweats. She has some sinus drainage. She says her cheeks and gums have been shedding. She sometimes has difficulty swallowing and she occasionally has choking. She does have some cough, but she does not complain of shortness of breath. She reports having indigestion. For at least the past month she has been having episodes of explosive diarrhea. She is convinced that she has worms. She has no complaints. She has no significant joint or bone pain. She does have some headaches and she sometimes has dizziness. She has a little bit of numbness/tingling. She does not have good sleep habits. She does not complain of having anxiety or depression. Medications: amLODIPine Besylate 1 (5 mg) Tablet Oral daily, Co Q 10 Capsule Oral, [employer] Fish Oil Capsule Oral, Ferrous Sulfate 1 (325 (65 fe) mg) Tablet Oral daily, metFORMIN HCl ER 1 (500 mg) Tablet SR 24 HR Oral daily, Rivastigmine 1 patch(es) (of 4.6 mg/24hr) Patch 24 Hr Transdermal daily, Vitamin B-12 1 (1000 mcg) Tablet Dispersable Oral daily Allergies: Aricept, Baclofen, Lyrica, Statins, and TB SKIN TEST. Vital Signs: Performed on Apr 21, 2021 09:20 Height - 58.00 in Weight - 158 lbs (LOW) BSA - 1.65 sq.m BMI - 33.02 (HIGH) Temperature - 98.4 F Pulse - 61 /min Respiration - 18 /min BP - 154/79 mm(hg) (HIGH) O2 Sat - 98 % Pain - 0 Physical Examination: Constitutional - She looks pale, but she does not appear acutely ill, Eyes - Sclerae nonicteric. Conjunctivae clear, ENMT - No lesions noted in the oral cavity, Hematologic/Lymphatic - No cervical, clavicular, or axillary adenopathy, Respiratory - Lungs are clear with good air movement bilaterally, Cardiovascular - Heart rhythm is regular. There is a II/ systolic murmur. There is no gallop or rub noted, Abdomen - Soft. Liver and spleen are not enlarged. There is no abdominal mass or ascites noted and there is no inguinal adenopathy, Extremities - No edema, Neurologic - No focal neurologic deficits noted. Lab/Imaging: Test performed on Apr 21, 2021 08:43 WBC 4.9 10 3/uL RBC 4.27 10 6/uL HGB 9.1 g/dL HCT 32.0 % MCV 74.9 fL MCH 21.3 pg MCHC 28.4 g/dL RDW 22.7 % Platelet Count 351 10 3/cmm MPV 9.2 fL Neutrophils 3.07 10 3/uL Lymphocytes 1.1 10 3/uL Monocytes 0.5 10 3/uL Eosinophils 0.2 10 3/uL Basophils 0.1 10 3/uL Neutrophil % 62.8 % Lymphocyte % 21.7 % Monocyte % 9.8 % Eosinophil % 4.3 % Basophils % 1.2 % NRBC % 0 % Problem List: 1. Iron deficiency anemia. 2. She underwent gastric bypass in 2007. 3. Hypertension. 4. Hyperlipidemia. 5. Type II diabetes. 6. GERD. 7. Nephrolithiasis. 8. Cerebrovascular disease with history of TIAs and memory loss. 9. She has a history of cardiac arrhythmia for which she underwent an ablation procedure in 2007. Problems Addressed with this Encounter and Plan: 1. Patient with iron deficiency anemia following gastric bypass in 2007. She had previously required parenteral iron replacement back in 2018. At that time, she underwent evaluation with EGD and colonoscopy with no evidence for GI blood loss. As such, it was presumed that the iron deficiency was due to inadequate oral iron absorption. She returns now with severe anemia and with transferrin saturation and ferritin again consistent with iron deficiency. She does not have symptoms to suggest GI blood loss. As her anemia had previously not corrected with oral iron, she will again be given parenteral iron replacement with 2 infusions of Injectafer. She will be scheduled for 1-month interval follow-up lab studies. 2. She has been having diarrhea. This appears to be chronic. However, I did suggest that, at least temporarily, she try stopping the Metformin and also that she try cutting back on her coffee intake. I will consider further evaluation as indicated. Signed By: Danie Garcia M.D. <<Signature on File>>
[2021-04-21] MEDS: ferric carboxy (IVPB) 750 MG in sodium chloride 0.9% (100 ml) 100 ML 460 MG IV (10:15)
== END 2021-04-21 08:15 | disposition home or self-care (01) ==
LOC: ONCMED 08:19
PROVIDERS: PCP Family Medicine; Visit Provider Internal Medicine Medical Oncology
DX: D50.9 Iron deficiency anemia, unspecified (principal); I10 Essential (primary) hypertension; E78.5 Hyperlipidemia, unspecified; E11.9 Type 2 diabetes mellitus without complications; K21.9 Gastro-esophageal reflux disease without esophagitis; N20.0 Calculus of kidney; Z86.73 Personal history of transient ischemic attack (TIA), and cerebral infarction without residual deficits; I49.9 Cardiac arrhythmia, unspecified; Z79.4 Long term (current) use of insulin; Z79.899 Other long term (current) drug therapy
CPT/HCPCS: 36415; 85025; 96365; 99214; J1439

== ENCOUNTER 2021-04-28 06:06 | Outpatient (CLI) | payer MEDICARE, BC, SELFPAY ==
[2021-04-28] MEDS: ferric carboxy (IVPB) 750 MG in sodium chloride 0.9% (100 ml) 100 ML 345 MG IV (10:00)
== END 2021-04-28 06:07 | disposition home or self-care (01) ==
LOC: ONCMED 06:09
PROVIDERS: PCP Family Medicine; Visit Provider Internal Medicine Medical Oncology
DX: D50.9 Iron deficiency anemia, unspecified (principal); Z79.899 Other long term (current) drug therapy
CPT/HCPCS: 96365; J1439

== ENCOUNTER → 2021-05-08 11:57 | Outpatient (BNVA) | payer MEDICARE, BC, SELFPAY | PROVIDERS: PCP Family Medicine; Visit Provider Family Medicine | DX: D50.9 Iron deficiency anemia, unspecified (principal); Z13.6 Encounter for screening for cardiovascular disorders | CPT/HCPCS: 83550; 85025 ==

== ENCOUNTER → 2021-05-17 12:43 | Outpatient (BNVA) | payer MEDICARE, BC, SELFPAY | PROVIDERS: PCP Family Medicine; Visit Provider Specialist | DX: R41.3 Other amnesia (principal); E61.1 Iron deficiency | CPT/HCPCS: 99213; 99214 ==

== ENCOUNTER 2021-05-26 09:26 | Outpatient (CLI) | payer MEDICARE, BC, SELFPAY ==
[2021-05-26 10:14] LABS: Basophils % 0.8 %; Eosinophils # 0.3 10^3/uL (0.0-0.8); Eosinophils % 6.1 %; Hematocrit 41.5 % (37.0-47.0); Hemoglobin 12.7 g/dL (11.5-15.3); Lymphocytes # 1.4 10^3/uL (0.8-4.8); Lymphocytes % 28.9 %; Mean Corpuscular HGB Conc 30.6 g/dL (30.0-36.0); Mean Corpuscular Hemoglobin 25.8 pg (28.0-34.0); Mean Corpuscular Volume 84.3 fl (81-99); Mean Platelet Volume 8.9 fL (7.4-10.4); Monocytes # 0.4 10^3/uL (0.2-0.9); Monocytes % 8.3 %; Neutrophils # 2.74 10^3/uL (1.8-7.7); Neutrophils % 55.7 %; Nucleated Red Blood Cells % 0 %; Platelet Count 247 10^3/cmm (130-400); Red Blood Count 4.92 10^6/uL (4.1-5.3); Red Cell Distribution Width 25.9 % (12.1-15.1); White Blood Count 4.9 10^3/uL (4.0-10.0)
[2021-05-26 10:46] LABS: Ferritin 327 ng/mL (15-150); Iron 62 ug/dL (37-145); Total Iron Binding Capacity 248 mcg/dl; Unsaturated Iron Binding 186 ug/dL (112-347)
== END 2021-05-26 09:27 | disposition home or self-care (01) ==
LOC: ONCMED 09:31
PROVIDERS: PCP Family Medicine; Visit Provider Internal Medicine Medical Oncology
DX: D50.8 Other iron deficiency anemias (principal)
CPT/HCPCS: 36415; 82728; 83540; 83550; 85025

== ENCOUNTER → 2021-06-01 11:55 | Outpatient (BNVA) | payer MEDICARE, BC, SELFPAY | PROVIDERS: PCP Family Medicine; Visit Provider Family Medicine | DX: E11.9 Type 2 diabetes mellitus without complications (principal); D50.9 Iron deficiency anemia, unspecified; I10 Essential (primary) hypertension; R19.7 Diarrhea, unspecified | CPT/HCPCS: 83036 ==

== ENCOUNTER → 2021-07-07 08:33 | Outpatient (BNVA) | payer MEDICARE, BC, SELFPAY | PROVIDERS: PCP Family Medicine; Visit Provider Nurse Practitioner Family | DX: Z20.822 Contact with and (suspected) exposure to COVID-19 (principal) | CPT/HCPCS: 87426 ==

== ENCOUNTER → 2021-08-02 14:59 | Outpatient (BNVA) | payer MEDICARE, BC, SELFPAY | PROVIDERS: PCP Family Medicine; Visit Provider Specialist | DX: G31.84 Mild cognitive impairment of uncertain or unknown etiology (principal) | CPT/HCPCS: 99213 ==

== ENCOUNTER 2021-09-02 15:29 | Emergency (ER) | payer MEDICARE, BC, SELFPAY ==
--- NOTE | 2021-09-02 15:43 | XRR_ITS ---
PROCEDURE INFORMATION: Exam: XR Chest Exam date and time: 09/02/2021 3:43 PM Age: 71 years old Clinical indication: Cough; Additional info: Chest pain TECHNIQUE: Imaging protocol: XR of the chest. Views: 1 view. COMPARISON: CR Ribs LEFT w PA Chest [id number] 06/08/2019 9:25 PM FINDINGS: Lungs: Unremarkable. No consolidation. Pleural spaces: Unremarkable. No pleural effusion. No pneumothorax. Heart/Mediastinum: Unremarkable. No cardiomegaly. Bones/joints: Unremarkable. XR/XR chest 1V portable [id number] IMPRESSION: No acute findings.
[2021-09-02 15:45] VITALS: BP 186/118; PULSE 89; RESP 16; TEMP 36.3; O2SAT 97
[2021-09-02 17:34] LABS: Basophils % 0.6 %; Eosinophils # 0.2 10^3/uL (0.0-0.8); Eosinophils % 3.6 %; Hematocrit 38.9 % (37.0-47.0); Hemoglobin 12.9 g/dL (11.5-15.3); Lymphocytes # 2.2 10^3/uL (0.8-4.8); Lymphocytes % 33.5 %; Mean Corpuscular HGB Conc 33.2 g/dL (30.0-36.0); Mean Corpuscular Hemoglobin 30.3 pg (28.0-34.0); Mean Corpuscular Volume 91.3 fl (81-99); Mean Platelet Volume 8.8 fL (7.4-10.4); Monocytes # 0.5 10^3/uL (0.2-0.9); Monocytes % 7.4 %; Neutrophils # 3.53 10^3/uL (1.8-7.7); Neutrophils % 54.7 %; Nucleated Red Blood Cells % 0 %; Platelet Count 252 10^3/cmm (130-400); Red Blood Count 4.26 10^6/uL (4.1-5.3); Red Cell Distribution Width 12.5 % (12.1-15.1); White Blood Count 6.5 10^3/uL (4.0-10.0)
--- NOTE | 2021-09-02 17:40 | ECG_ITS ---
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[employer]: : 1950 Requested By: Chilango Foreman Order Number: [id number] Reading MD: MAXIMINO THOMAS Measurements Intervals [place] Rate: 65 P: 41 TN: 154 QRS: -9 QRSD: 89 T: 9 QT: 405 QTc: 422 Interpretive Statements SINUS RHYTHM MODERATE VOLTAGE CRITERIA FOR LVH, CONSIDER NORMAL VARIANT [MEETS CRITERIA IN ONE OF: R(aVL), S(V1), R(V5), R(V5/V6)+S(V1)] Compared to ECG 09/02/2021 15:49:43 T-wave abnormality no longer present Electronically Signed On 09-03-2021 19:58:50 GRADUATE STUDENT INSTRUCTOR by MAXIMINO THOMAS [id number]
--- NOTE | 2021-09-02 17:43 | ECG_ITS ---
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1950 Requested By: Claire Mckeon Order Number: [id number] Reading MD: MAXIMINO THOMAS Measurements Intervals [place] Rate: 76 P: 40 TX: 150 QRS: -2 QRSD: 72 T: 28 QT: 355 QTc: 401 Interpretive Statements SINUS RHYTHM MINIMAL VOLTAGE CRITERIA FOR LVH, CONSIDER NORMAL VARIANT [MEETS CRITERIA IN ONE OF: R(aVL), S(V1), R(V5), R(V5/V6)+S(V1)] NONSPECIFIC ST & T-WAVE ABNORMALITY Compared to ECG 04/19/2021 07:32:35 No significant changes Electronically Signed On 09-03-2021 19:59:50 TOUR LEADER by MAXIMINO THOMAS [id number]
[2021-09-02 17:47] LABS: Troponin(5th) Baseline 7 ng/L (0-10)
[2021-09-02 17:48] LABS: Alanine Aminotransferase 24 U/L (0-33); Albumin Level 4.2 g/dL (3.5-5.2); Alkaline Phosphatase 112 IU/L (35-105); Anion Gap 17.9 (5-19); Aspartate Amino Transferase 30 U/L (0-32); Blood Urea Nitrogen 8 mg/dL (8-23); Calcium 8.8 mg/dL (8.5-10.5); Carbon Dioxide 24 mmol/L (22-29); Chloride 105 mmol/L (98-107); Globulin 2.3 g/dL (1.3-4.6); Glucose 117 mg/dL (65-115); Osmolality Calculated 295 mOsm/kg (285-295); Potassium 3.9 mmol/L (3.5-5.1); Sodium 143 mmol/L (136-145); Total Protein 6.5 g/dL (6.6-8.7)
[2021-09-02 18:06] VITALS: BP 186/118; PULSE 64; RESP 13; O2SAT 97
--- NOTE | 2021-09-02 18:08 | ED_ITS ---
HPI - Chest Pain General: Chief Complaint: Chest Pain Stated Complaint: L back pain radiating over shoulder down L arm Time Seen by Provider: 09/02/21 17:40 History of Present Illness: HPI narrative: Patient is a 71-year-old female comes to the ED with back, left shoulder and left arm pain. Symptoms were sudden in onset. She went to urgent care earlier today and was then sent to the ED for a cardiac work-up to rule out any cardiac cause of acute left arm and left shoulder/back pain. Symptoms started this morning when she woke up. She states that she had similar symptoms approximately 6 days ago but it resolved on its own after several minutes. She says the symptoms today have improved as the days went on. Denies any injury or trauma to cause acute pain. Denies any shortness of breath, fever, chills, palpitations, abdominal pain, nausea/vomiti ng, bladder or bowel symptoms. Associated symptoms: Deny abdominal pain, dyspnea, fever(s), nausea, palpitations or vomiting Review of Systems Const: Denies: fever(s), chills or fatigue Eyes: Denies: change in vision or eye discomfort ENMT: Denies: throat pain, odynophagia, nasal discharge or nasal congestion Card: Reports: chest pain; Denies: palpitations, edema, swelling of feet/ankles, dyspnea on exertion or orthopnea Resp: Denies: dyspnea, productive cough or non-productive cough GI: Denies: abdominal pain, nausea, vomiting, diarrhea, constipation or hematochezia : Denies: flank pain, dysuria or hematuria Musc: Reports: back pain (Left upper back) and extremity pain (Pain radiates into left arm); Denies: neck pain or extremity swelling Skin/Breast: Denies: rash or new lesions Neuro: Denies: headache(s), numbness in extremities or weakness in extremities PFSH ED PFSH: Medical History Anemia Cognitive impairment COPD (chronic obstructive pulmonary disease) Enrolled in chronic care management Essential (primary) hypertension Hypertriglyceridemia Microcytic anemia Seasonal allergies Stomatitis and mucositis, unspecified TIA (transient ischemic attack) Type 2 diabetes mellitus, without long-term current use of insulin Surgical History H/O section H/O lithotripsy S/P appendectomy S/P cholecystectomy S/P gastric bypass S/P hernia repair S/P nasal surgery S/P tonsillectomy and adenoidectomy S/P tubal ligation Family History Father CAD (coronary artery disease) Mother Parkinson disease Stroke Other Hypertension Social History Smoking and tobacco status: never smoked Alcohol intake: never Marital status: Current occupational status: retired Female Reproductive History: Para: 3 Spontaneous abortions: Yes Physical Exam Const: COMMON NORMALS: no acute distress, patient oriented x3, healthy appearing and alert GENERAL APPEARANCE: cooperative and comfortable HENMT: COMMON NORMALS: normocephalic HEAD & SCALP: normocephalic MOUTH: Normal oral and palatal mucosa present THROAT: posterior oropharynx normal and uvula midline Neck/C-Spine: COMMON NORMALS: supple GENERAL: Yes normal visual inspection Resp: COMMON NORMALS: normal respiratory effort, No retractions, No use of accessory muscles and clear to auscultation bilaterally AUSCULTATION: clear to auscultation bilaterally Cardio: COMMON NORMALS: regular rate, regular rhythm, S1 normal heart sound present, S2 normal heart sound present, No gallops present (Cardio), No clicks present (Cardio), No murmurs present (Cardio) and Peripheral pulses 2+ throughout RATE: regular rate RHYTHM: regular rhythm HEART SOUNDS: S1 normal heart sound present and S2 normal heart sound present PERIPHERAL PULSES: Peripheral pulses 2+ throughout GI: COMMON NORMALS: Normal to inspection, nondistended, normoactive bowel sounds present, Soft to palpation, non-tender and no masses PALPATION: Yes Soft to palpation : COMMON NORMALS: Yes no CVA tenderness BLADDER/KIDNEY EXAM: Yes no CVA tenderness Back/Pelvis: COMMON NORMALS: no CVA tenderness Extremity: COMMON NORMALS: normal to inspection Neuro: COMMON NORMALS: patient oriented x3 and moves all extremities SENSORIUM/ORIENTATION: Yes alert Skin: GENERAL SKIN EXAM: dry skin Course Vital Signs: Vital signs: Vital Signs Temperature 97.4 F L 09/02/21 15:45 Pulse Rate 63 09/02/21 20:23 Respiratory Rate 13 09/02/21 20:23 Blood Pressure 145/82 09/02/21 20:23 Pulse Oximetry 98 09/02/21 20:23 MDM - Chest Pain MDM Narrative: Medical decision making narrative: Patient is a 71-year-old female comes to the ED with a nontraumatic pain upper back, left shoulder and left arm. Symptoms began at rest a week ago but today they started when she was up and walking around house. She saw her PCP earlier today and they told her to come here for cardiac work-up to rule out any cardiac cause for pain. Patient said symptoms started first about a week ago and they resolved. She then started feeling the symptoms again today. Denies any shortness of breath, fever, chills, abdominal pain, nausea/vomiting, diaphoresis, bladder or bowel symptoms. Vitals are stable. Patient appears in no acute distress or pain and is sitting comfortably in exam bed around the room. Rest of patient exam was benign. Labs were unremarkable and patient's troponin was negative. EKG showed normal sinus rhythm with no ST segment elevation or depression seen. Chest x- ray showed no acute findings. Patient was diagnosed with atypical chest pain and she was discharged home and told to follow-up with her PCP in about 5 to 7 days reevaluation. She was given strict return to ED precautions if she has any recurrent chest pain. Patient is to agree with plan. Lab Data: Attestation: I reviewed the patient's lab results. Labs: Lab Results 09/02/21 09/02/21 09/02/21 17:16 17:16 17:16 WBC 6.5 10^3/uL 10^3/ uL (4.0-10.0) RBC 4.26 10^6/uL 10^6 /uL (4.1-5.3) Hgb 12.9 g/dL g/dL (11.5-15.3) Hct 38.9 % % (37.0-47.0) MCV 91.3 fl fl (81-99) MCH 30.3 pg pg (28.0-34.0) MCHC 33.2 g/dL g/dL (30.0-36.0) RDW 12.5 % % (12.1-15.1) Plt Count 252 10^3/cmm 10^3 /cmm (130-400) MPV 8.8 fL fL (7.4-10.4) Neut % (Auto) 54.7 % % Lymph % (Auto) 33.5 % % [place] % (Auto) 7.4 % % Eos % (Auto) 3.6 % % Baso % (Auto) 0.6 % % Neut # (Auto) 3.53 10^3/uL 10^3 /uL (1.8-7.7) Lymph # (Auto) 2.2 10^3/uL 10^3/ uL (0.8-4.8) [place] # (Auto) 0.5 10^3/uL 10^3/ uL (0.2-0.9) Eos # (Auto) 0.2 10^3/uL 10^3/ uL (0.0-0.8) Baso # (Auto) 0.0 10^3/uL 10^3/ uL (0.0-0.1) Nucleated RBC % (a uto) 0 % % Nucleated RBCs # 0.0 /100WBC /100W BC Sodium 143 mmol/L mmol/L (136-145) Potassium 3.9 mmol/L mmol/L (3.5-5.1) Chloride 105 mmol/L mmol/L (98-107) Carbon Dioxide 24 mmol/L mmol/L (22-29) Anion Gap 17.9 (5-19) BUN 8 mg/dL mg/dL (8-23) Creatinine 0.4 mg/dL L mg/dL (0.5-0.9) GFR Calculation Not Reportable Glucose 117 mg/dL H mg/dL (65-115) Calculated Osmolal ity 295 mOsm/kg mOsm/ kg (285-295) Calcium 8.8 mg/dL mg/dL (8.5-10.5) Total Bilirubin 1.0 mg/dL mg/dL (0.15-1.2) AST 30 U/L U/L (0-32) ALT 24 U/L U/L (0-33) Alkaline Phosphata se 112 IU/L H IU/L (35-105) Troponin T Baselin e 7 ng/L ng/L (0-10) Troponin T 120 Min [place] Troponin T Total Protein 6.5 g/dL L g/dL (6.6-8.7) Albumin 4.2 g/dL g/dL (3.5-5.2) Globulin 2.3 g/dL g/dL (1.3-4.6) 09/02/21 19:11 WBC RBC Hgb Hct MCV MCH MCHC RDW Plt Count MPV Neut % (Auto) Lymph % (Auto) [place] % (Auto) Eos % (Auto) Baso % (Auto) Neut # (Auto) Lymph # (Auto) Williamson # (Auto) Eos # (Auto) Baso # (Auto) Nucleated RBC % (a uto) Nucleated RBCs # Sodium Potassium Chloride Carbon Dioxide Anion Gap BUN Creatinine GFR Calculation Glucose Calculated Osmolal ity Calcium Total Bilirubin AST ALT Alkaline Phosphata se Troponin T Baselin e Troponin T 120 Min [place] 6.11 ng/L ng/L (0-10) Delta Troponin T -0.89 ABS# L ABS# (0-10) Total Protein Albumin Globulin Imaging Data^: CXR: Attestation: I personally reviewed and interpreted this imaging study as follows: Radiologist's impression: [address] [address] XRay Report Signed Patient: Roya Aguilar Unit #: [id number] : 1950 Age/Sex: 71 / F ADM Date: 09/02/21 Loc: ER Room/Bed: Attending Dr: Ordering Provider/Ordering MD: Claire Mckeon Date of Service: 09/02/21 Procedure(s): XR chest 1V portable [id number] Accession Number(s): [id number] Report Number: [id number] PROCEDURE INFORMATION: Exam: XR Chest Exam date and time: 09/02/2021 3:43 PM Age: 71 years old Clinical indication: Cough; Additional info: Chest pain TECHNIQUE: Imaging protocol: XR of the chest. Views: 1 view. COMPARISON: CR Ribs LEFT w PA Chest [id number] 06/08/2019 9:25 PM FINDINGS: Lungs: Unremarkable. No consolidation. Pleural spaces: Unremarkable. No pleural effusion. No pneumothorax. Heart/Mediastinum: Unremarkable. No cardiomegaly. Bones/joints: Unremarkable. XR/XR chest 1V portable [id number] IMPRESSION: No acute findings. Dictated By: Jas Claudio MD Signed By: Jas Claudio MD Signed Date/Time: 09/02/21 1738 DD/ 2195 EKG Data^: EKG 1: Attestation: I personally reviewed and interpreted this EKG as follows: Discharge Plan Discharge Patient Disposition: Home Clinical Impression: Atypical chest pain Condition: Stable Prescriptions: New acetaminophen 500 mg tablet 500 mg PO Q6H PRN (Reason: pain) 5 Days Qty: 20 RF: 0 No Action lisinopril 40 mg tablet 40 mg PO DAILY Qty: 90 RF: 1 aspirin 325 mg tablet 325 mg PO DAILY RF: 0 ferrous sulfate 325 mg (65 mg iron) tablet,delayed release (DR/EC) 325 mg PO DAILY RF: 0 Complete Multivitamin Tablet 1 tab PO BID RF: 0 mecobalamin (vitamin B12) 1,000 mcg tablet,disintegrating 1,000 mcg SUBLINGUAL ONCE RF: 0 (DME) FreeStyle Adriel 14 Day [place] Misc See Rx Instructions .ROUTE .MEDSUPPLY Qty: 1 RF: 0 (DME) FreeStyle Adriel 14 Day Sensor Kit See Rx Instructions .ROUTE .MEDSUPPLY Qty: 2 RF: 5 ascorbic acid (vitamin C) 500 mg tablet 500 mg PO DAILY Qty: 30 RF: 3 Discharge Orders: Discharge ED (Routine); Ordered 09/02/21 Ordered By: Reyes King Referrals: Amie Aaron DO [Primary Care Provider] - Discharge Diet: Advance as tolerated Discharge Activity: Resume usual activity Patient Instructions: Chest Pain (ED), Noncardiac Chest Pain (ED) Activity Restrictions/Additional Instructions: Follow-up with medical provider as directed in the next 7 to 10 days for reevaluation. Continue taking all home medications as previously prescribed. Return to the ER or your medical provider if condition worsens. Please read and understand discharge instructions. Thank you for choosing [facility] for your healthcare needs today. Please realize this is an emergency room and that we are providing you with a medical screening exam and this may not be complete and all inclusive of all the testing and or work up that you may need to determine your ailment or severity of your illness. It is very important that you follow up as instructed or that you return to the Emergency Department should you have concerns or if your condition changes or worsens in any way. Coding Level of Care Code ED Clinical Nursing Coordinator for [employer] Fwd Exam Comprehensive
[2021-09-02 20:02] LABS: Troponin 5 2HR 6.11 ng/L (0-10)
[2021-09-02 20:03] LABS: Troponin 5 2HR Delta -0.89 ABS# (0-10)
[2021-09-02 20:23] VITALS: BP 145/82; PULSE 63; RESP 13; O2SAT 98
== END 2021-09-02 20:29 | disposition home or self-care (01) ==
PROVIDERS: Physician Assistant; Emergency Provider Physician Assistant; PCP Family Medicine
DX: R07.89 Other chest pain (principal); Z79.82 Long term (current) use of aspirin; J44.9 Chronic obstructive pulmonary disease, unspecified; I10 Essential (primary) hypertension; E11.9 Type 2 diabetes mellitus without complications; Z86.73 Personal history of transient ischemic attack (TIA), and cerebral infarction without residual deficits
CPT/HCPCS: 36415; 71045; 80053; 84484; 85025; 93005; 99283

== ENCOUNTER → 2021-09-26 15:14 | Outpatient (BNVA) | payer MEDICARE, BC, SELFPAY | PROVIDERS: PCP Family Medicine; Visit Provider Family Medicine | DX: Z20.822 Contact with and (suspected) exposure to COVID-19 (principal); R05.8 Other specified cough | CPT/HCPCS: 87635; 87801 ==

== ENCOUNTER → 2021-11-28 11:44 | Outpatient (BNVA) | payer MEDICARE, BC, SELFPAY | PROVIDERS: PCP Family Medicine; Visit Provider Nurse Practitioner Family | DX: M25.561 Pain in right knee (principal); M17.11 Unilateral primary osteoarthritis, right knee | CPT/HCPCS: 73562 ==

== ENCOUNTER → 2022-01-31 12:40 | Outpatient (BNVA) | payer MEDICARE, BC, SELFPAY | PROVIDERS: PCP Family Medicine; Visit Provider Specialist | DX: G30.9 Alzheimer's disease, unspecified (principal); F02.80 Dementia in other diseases classified elsewhere, unspecified severity, without behavioral disturbance, psychotic disturbance, mood disturbance, and anxiety | CPT/HCPCS: 96116; 99214 ==

== ENCOUNTER 2022-06-18 12:03 | Inpatient (IN) | payer MEDICARE, BC, SELFPAY ==
[2022-06-18] VITALS (22 sets, daily range): BP systolic 146–199; BP diastolic 57–91; PULSE 63–95; RESP 12–20; TEMP 36.6–36.8; O2SAT 93–98; BMI 31.3
--- NOTE | 2022-06-18 12:14 | XR_ITS ---
WS: [id number] PORTABLE CHEST HISTORY: syncope COMPARISON: 09/02/2021 Lungs are clear and well expanded. No pleural effusion or pneumothorax. Cardiac size: Normal. Mediastinum/Aorta: Mild atherosclerosis aorta. No osseous abnormality seen. XR/XR chest 1V portable [id number] IMPRESSION: Mild atherosclerosis aorta. Stable chest.
--- NOTE | 2022-06-18 12:14 | ECG_ITS ---
[facility] Test Date: 2022-06-18 Pat Name: Roya Aguilar Department: Room: Gender: Female Information Delivery Analyst: : 1950 Requested By: Chilango Foremna Order Number: [id number] [place] MD: Ron Ochoa M.D. Measurements Intervals [place] Rate: 75 P: 37 [place]: 142 QRS: -1 QRSD: 70 T: 35 QT: 371 QTc: 416 Interpretive Statements SINUS RHYTHM MODERATE VOLTAGE CRITERIA FOR LVH, CONSIDER NORMAL VARIANT [MEETS CRITERIA IN ONE OF: R(aVL), S(V1), R(V5), R(V5/V6)+S(V1)] POSSIBLE ANTERIOR MYOCARDIAL INFARCTION , PROBABLY OLD [30 ms Q WAVE IN V3/V4, OR R < 0.2 mV IN V4] Compared to ECG 09/02/2021 18:04:21 Myocardial infarct finding now present Electronically Signed On 06-18-2022 17:36:29 CDT by Ron Ochoa M.D. [id number]
--- NOTE | 2022-06-18 12:26 | CT_ITS ---
WS: [id number] CT HEAD TECHNIQUE: Noncontrast CT of the head obtained from the skullbase to the vertex. CLINICAL INFORMATION: syncope COMPARISON: MRI 2018 DLP: 950.[address] scans at [facility] use at least one of these dose optimization techniques: automated e xposure control; mA and/or kV adjustment per patient size (includes targeted exams where dose is matc hed to clinical indication); or iterative reconstruction. FINDINGS: No evidence of intracranial hemorrhage or mass effect. Ventricular system and basal cisterns are melendrez nt. Mild small vessel changes with moderate parenchymal volume loss. No extra-axial fluid collections . No evidence of mass or mass effect. Chronic lacunar infarct RIGHT caudate. Tiny chronic lacunar inf arct LEFT thalamus. Paranasal sinuses and mastoid air cells are well aerated. .Normal visualized soft tissues. CT/CT head wo con* [id number] IMPRESSION: 1. No evidence of intracranial hemorrhage or mass effect. 2. Chronic lacunar infarct RIGHT caudate. Tiny chronic lacunar infarct LEFT th alamus. 3. Mild small vessel changes. Moderate parenchymal volume loss. 4. Mastoid air cells are well aerated. Paranasal sinuses are well aerated. 5. No acute intracranial findings.
--- NOTE | 2022-06-18 12:28 | ED_ITS ---
HPI - Syncope General: Chief Complaint: Syncope Stated Complaint: passed outx2, n/v Time Seen by Provider: 06/18/22 12:26 PFSH ED PFSH: Medical History Anemia Cognitive impairment COPD (chronic obstructive pulmonary disease) Enrolled in chronic care management Essential (primary) hypertension Hypertriglyceridemia Microcytic anemia Seasonal allergies Stomatitis and mucositis, unspecified TIA (transient ischemic attack) Type 2 diabetes mellitus, without long-term current use of insulin Surgical History H/O section H/O lithotripsy S/P appendectomy S/P cholecystectomy S/P gastric bypass S/P hernia repair S/P nasal surgery S/P tonsillectomy and adenoidectomy S/P tubal ligation Family History Father CAD (coronary artery disease) Mother Parkinson disease Stroke Other Hypertension Social History Smoking and tobacco status: never smoked Alcohol intake: never Marital status: Current occupational status: retired Female Reproductive History: Para: 3 Spontaneous abortions: Yes Course Vital Signs: Vital signs: Vital Signs Temperature 97.8 F 06/18/22 12:25 Pulse Rate 78 06/18/22 12:25 Respiratory Rate 18 06/18/22 12:25 Blood Pressure 160/91 06/18/22 12:25 Pulse Oximetry 96 06/18/22 12:25 Oxygen Delivery Me thod 06/18/22 12:25 MDM - Syncope Lab Data : 06/18/22 12:41 06/18/22 12:41 Laboratory Results WBC 7.9 10^3/uL (4.0-10.0) 06/18/22 12:41 RBC 4.55 10^6/uL (4.1-5.3) 06/18/22 12:41 Hgb 13.8 g/dL (11.5-15.3) 06/18/22 12:41 Hct 40.5 % (37.0-47.0) 06/18/22 12:41 MCV 89.0 fl (81-99) 06/18/22 12:41 MCH 30.3 pg (28.0-34.0) 06/18/22 12:41 MCHC 34.1 g/dL (30.0-36.0) 06/18/22 12:41 RDW 12.5 % (12.1-15.1) 06/18/22 12:41 Plt Count 305 10^3/cmm (130-400) 06/18/22 12:41 MPV 9.2 fL (7.4-10.4) 06/18/22 12:41 Neut % (Auto) 82.2 % 06/18/22 12:41 Lymph % (Auto) 12.3 % 06/18/22 12:41 [place] % (Auto) 4.4 % 06/18/22 12:41 Eos % (Auto) 0.3 % 06/18/22 12:41 Baso % (Auto) 0.5 % 06/18/22 12:41 Neut # (Auto) 6.49 10^3/uL (1.8-7.7) 06/18/22 12:41 Lymph # (Auto) 1.0 10^3/uL (0.8-4.8) 06/18/22 12:41 [place] # (Auto) 0.4 10^3/uL (0.2-0.9) 06/18/22 12:41 Eos # (Auto) 0.0 10^3/uL (0.0-0.8) 06/18/22 12:41 Baso # (Auto) 0.0 10^3/uL (0.0-0.1) 06/18/22 12:41 Nucleated RBC % (auto) 0 % 06/18/22 12:41 Nucleated RBCs # 0.0 /100WBC 06/18/22 12:41 Discharge Plan Discharge Condition: Stable Prescriptions: No Action aspirin 325 mg tablet 325 mg PO DAILY ferrous sulfate 325 mg (65 mg iron) tablet,delayed release (DR/EC) 325 mg PO DAILY Complete Multivitamin Tablet 1 tab PO BID mecobalamin (vitamin B12) 1,000 mcg tablet,disintegrating 1,000 mcg SUBLINGUAL ONCE (DME) FreeStyle Adriel 14 Day [place] Misc See Rx Instructions .ROUTE .MEDSUPPLY Qty: 1 0RF Rx Instructions: As directed azithromycin [Zithromax Z-Herberth] 250 mg tablet See Rx Instructions PO .COMPLEX Qty: 6 0RF Rx Instructions: For 250 mg dose pack: take 500 mg today (day 1), then 250 mg for 4 days (days 2-5) PO (DME) FreeStyle Adriel 14 Day Sensor Kit See Rx Instructions .ROUTE .MEDSUPPLY Qty: 2 5RF Rx Instructions: As directed methylprednisolone [Medrol (Herberth)] 4 mg tablets,dose pack See Rx Instructions PO PER PKG DIR Qty: 21 0RF Rx Instructions: PO PER PKG DIR albuterol sulfate [ProAir HFA] 90 mcg/actuation HFA aerosol inhaler 2 puff inhalation Q6H PRN (Reason: shortness of breath or wheezing) 30 Days Qty: 8.5 0RF lisinopril 40 mg tablet See Rx Instructions .ROUTE .COMPLEX Qty: 30 0RF Dose Instruction: Take 1 tablet by mouth once daily Rx Instructions: Take 1 tablet by mouth once daily rivastigmine 4.6 mg/24 hour patch 24 hour See Rx Instructions .ROUTE .COMPLEX Qty: 30 0RF Dose Instruction: APPLY 1 PATCH TOPICALLY ONCE DAILY Rx Instructions: APPLY 1 PATCH TOPICALLY ONCE DAILY galantamine 8 mg capsule,ext rel. pellets 24 hr 8 mg PO QAM Qty: 90 0RF Rx Instructions: administer with breakfast 340B ascorbic acid (vitamin C) 500 mg tablet 500 mg PO DAILY Qty: 30 3RF Referrals: Amie Aaron DO [Primary Care Provider] - Coding Level of Care Code ED Horticultural Services Supervisor for Talon Bernal
[2022-06-18] MEDS: lactated ringers 1,000 ML 999 ML IV ×2 (12:53→15:12)
[2022-06-18 13:03] LABS: Basophils % 0.5 %; Eosinophils % 0.3 %; Hematocrit 40.5 % (37.0-47.0); Hemoglobin 13.8 g/dL (11.5-15.3); Lymphocytes % 12.3 %; Mean Corpuscular HGB Conc 34.1 g/dL (30.0-36.0); Mean Corpuscular Hemoglobin 30.3 pg (28.0-34.0); Mean Platelet Volume 9.2 fL (7.4-10.4); Monocytes # 0.4 10^3/uL (0.2-0.9); Monocytes % 4.4 %; Neutrophils # 6.49 10^3/uL (1.8-7.7); Neutrophils % 82.2 %; Nucleated Red Blood Cells % 0 %; Platelet Count 305 10^3/cmm (130-400); Red Blood Count 4.55 10^6/uL (4.1-5.3); Red Cell Distribution Width 12.5 % (12.1-15.1); White Blood Count 7.9 10^3/uL (4.0-10.0)
--- NOTE | 2022-06-18 13:19 | ED_ITS ---
HPI - General Adult General: Chief complaint: Syncope Stated complaint: passed outx2, n/v Time Seen by Provider: 06/18/22 12:26 History of Present Illness: Patient is a 72-year-old female with history of COPD, hypertension, hyperlipidemia and TIA, who presents the emergency room for concerns of multiple episode of syncope earlier today. Patient woke up this morning has had 2 episodes of syncope since waking up this morning. Patient had no prodromal symptoms of nausea/20, diuresis, tunnel vision or lightheadedness. Patient says that he has episodes happen suddenly and followed by passing out. Patient denies any weakness in the arms or legs. Shortly after patient had 2 episodes syncope earlier today, patient also felt lightheaded again but did not pass out. Patient has associate nausea vomiting after episode of lightheadedness. Patient tells me in the past she has had some sort of tachycardia requiring cardiac ablation. Patient denies any fever/chills, cough, runny nose sore throat, chest pain, shortness breath, abdominal pain, diarrhea/melena/hematocheza. He has had 2 prior transfusions before for anemia. Patient reports that her cardiac ablation was 14 years ago at [place]. Onset: 4 hrs ago Duration: intermittent Location: home Severity: Associated symptoms: Reports vomiting; Deny chest pain, dyspnea, nausea, rash or palpitations Review of Systems Const: Denies: fever(s) or chills Eyes: Denies: change in vision ENMT: Denies: mouth pain Card: Denies: chest pain or palpitations Resp: Denies: dyspnea or non-productive cough GI: Reports: vomiting; Denies: abdominal pain, nausea or diarrhea : Denies: dysuria Musc: Denies: extremity pain Skin/Breast: Denies: rash or new lesions Neuro: Reports: other (+syncope x 2, light-headedness x 1 episode); Denies: weakness in extremities Psych: Reports: other (Normal mood) Mohan/Lymph: Denies: easy bruising [facility] ED PFSH: Medical History Anemia Cognitive impairment COPD (chronic obstructive pulmonary disease) Enrolled in chronic care management Essential (primary) hypertension Hypertriglyceridemia Microcytic anemia Seasonal allergies Stomatitis and mucositis, unspecified TIA (transient ischemic attack) Type 2 diabetes mellitus, without long-term current use of insulin Surgical History H/O section H/O lithotripsy S/P appendectomy S/P cholecystectomy S/P gastric bypass S/P hernia repair S/P nasal surgery S/P tonsillectomy and adenoidectomy S/P tubal ligation Family History Father CAD (coronary artery disease) Mother Parkinson disease Stroke Other Hypertension Social History Smoking and tobacco status: never smoked Alcohol intake: never Marital status: Current occupational status: retired Female Reproductive History: Para: 3 Spontaneous abortions: Yes Physical Exam Const: COMMON NORMALS: alert HENMT: COMMON NORMALS: atraumatic HEAD & SCALP: atraumatic MOUTH: moist mucous membranes not abnormal Eye: COMMON NORMALS: EOMs intact bilaterally and conjunctivae normal CONJUNCTIVA: Yes conjunctivae normal Neck/C-Spine: COMMON NORMALS: full ROM and supple Resp: COMMON NORMALS: normal respiratory effort and clear to auscultation mauro aterally AUSCULTATION: clear to auscultation bilaterally Cardio: COMMON NORMALS: regular rate RATE: regular rate OTHER: 2+ radial pulses b/l GI: COMMON NORMALS: Soft to palpation and non-tender PALPATION: Yes Soft to palpation OTHER: No focal TTP. NO guarding rebound, guarding, rigidity. No CVA tenderness to percussion. Neg Ambrocio/Neg McBurney's point tenderness, no suprabupic tenderness to palpation. Extremity: COMMON NORMALS: full ROM Neuro: SENSORIUM/ORIENTATION: Yes alert MOTOR EXAM: No Abnormal motor strength present and Other motor observations present (no focal motor deficits) OTHER: Mental status? Awake, alert, and oriented to self, year, month, location, and situation.? Following simple axial and appendicular commands.? Has appropriate fund of knowledge, comprehension, and insight.? Able to recall and understands pertinent aspects of medical history and current treatment status.? ? Language? Speech is fluent without word-finding difficulties.? Intact naming, expression, snow fence erector, and repetition.? ? Cranial nerves? 2,3,4,6: PERRL, EOMI with no nystagmus. 5: Intact sensation to light touch, symmetric? 7: Smile symmetrical, no facial droop.? 8: Hearing grossly intact.? 9,10: Normal palate movement.? 11: Normal strength in trapezius bilaterally 12: Tongue protrudes midline.? ? Motor examination? Normal bulk & tone. Strength as follows (R/L): Delts (5/5), Biceps (5/5), Triceps (5/5), Wrist ext (5/5), hip flexors (5/5), plantarflexors (5/5), dorsiflexors (5/5). Sensation? Light Touch: Grossly intact and equal in upper and lower extremities bilaterally? Romberg: Negative.? Distal joint position sense intact ? Coordination? Jfepza-yf-tgan-finger movements intact without dysmetria or past-pointing.? Rapid fingertaps: preserved amplitude without decriment.? No tremor, myoclonus or truncal ataxia.? ? Gait/stance? Steady, normal narrow base gait with appropriate arm swing and turning.? Tandem gait without hesitation or loss of balance. Psych: COMMON NORMALS: speech normal SPEECH: Yes normal speech MOOD & AFFECT: Yes euthymic mood Course Vital Signs: Vital signs: Vital Signs Temperature 97.8 F 06/18/22 12:25 Pulse Rate 77 06/18/22 15:16 Respiratory Rate 17 06/18/22 15:00 Blood Pressure 173/68 06/18/22 15:16 Pulse Oximetry 98 06/18/22 15:00 Oxygen Delivery Me thod 06/18/22 12:25 [facility] - General Adult Medical Decision Making Patient is a 72-year-old female with history of COPD, hypertension, hyperl ipidemia and TIA, who presents the emergency room for concerns of multiple episode of syncope earlier today. On physical exam, she is hemodynamically stable. Patient is neurologically intact. Rest of exam is unremarkable. Lab work-up showed white count 7.9. Troponin within normal. CT head negative for any acute finding. XR chest is clear. Given 2 episodes of syncope and 1 episode lightheadedness, patient will go to the hospital for further work-up. Disposition: admission Lab Data : 06/18/22 12:41 06/18/22 12:41 Radiology Impressions Chest X-Ray 06/18/22 12:14 IMPRESSION: Mild atherosclerosis aorta. Stable chest. Head CT 06/18/22 12:26 IMPRESSION: 1. No evidence of intracranial hemorrhage or mass effect. 2. Chronic lacunar infarct RIGHT caudate. Tiny chronic lacunar infarct LEFT thalamus. 3. Mild small vessel changes. Moderate parenchymal volume loss. 4. Mastoid air cells are well aerated. Paranasal sinuses are well aerated. 5. No acute intracranial findings. Laboratory Results WBC 7.9 10^3/uL (4.0-10.0) 06/18/22 12:41 RBC 4.55 10^6/uL (4.1-5.3) 06/18/22 12:41 Hgb 13.8 g/dL (11.5-15.3) 06/18/22 12:41 Hct 40.5 % (37.0-47.0) 06/18/22 12:41 MCV 89.0 fl (81-99) 06/18/22 12:41 MCH 30.3 pg (28.0-34.0) 06/18/22 12:41 MCHC 34.1 g/dL (30.0-36.0) 06/18/22 12:41 RDW 12.5 % (12.1-15.1) 06/18/22 12:41 Plt Count 305 10^3/cmm (130-400) 06/18/22 12:41 MPV 9.2 fL (7.4-10.4) 06/18/22 12:41 Neut % (Auto) 82.2 % 06/18/22 12:41 Lymph % (Auto) 12.3 % 06/18/22 12:41 [place] % (Auto) 4.4 % 06/18/22 12:41 Eos % (Auto) 0.3 % 06/18/22 12:41 Baso % (Auto) 0.5 % 06/18/22 12:41 Neut # (Auto) 6.49 10^3/uL (1.8-7.7) 06/18/22 12:41 Lymph # (Auto) 1.0 10^3/uL (0.8-4.8) 06/18/22 12:41 [place] # (Auto) 0.4 10^3/uL (0.2-0.9) 06/18/22 12:41 Eos # (Auto) 0.0 10^3/uL (0.0-0.8) 06/18/22 12:41 Baso # (Auto) 0.0 10^3/uL (0.0-0.1) 06/18/22 12:41 Nucleated RBC % (auto) 0 % 06/18/22 12:41 Nucleated RBCs # 0.0 /100WBC 06/18/22 12:41 Sodium 135 mmol/L (136-145) L 06/18/22 12:41 Potassium 5.5 mmol/L (3.5-5.1) H 06/18/22 12:41 Chloride 100 mmol/L (98-107) 06/18/22 12:41 Carbon Dioxide 24 mmol/L (22-29) 06/18/22 12:41 Anion Gap 16.5 (5-19) 06/18/22 12:41 BUN 9 mg/dL (8-23) 06/18/22 12:41 Creatinine 0.4 mg/dL (0.5-0.9) L 06/18/22 12:41 GFR Calculation Not Reportable 06/18/22 12:41 Glucose 144 mg/dL (65-115) H 06/18/22 12:41 Calculated Osmolality 281 mOsm/kg (285-295) L 06/18/22 12:41 Calcium 9.5 mg/dL (8.5-10.5) 06/18/22 12:41 Troponin T Baseline 6 ng/L (0-10) 06/18/22 12:41 Troponin T 120 Minute 6.00 ng/L (0-10) 06/18/22 15:03 Delta Troponin T 0 ABS# (0-10) 06/18/22 15:03 Urine Color Yellow (Yellow) 06/18/22 13:20 Urine Appearance Clear (CLEAR) 06/18/22 13:20 Urine pH 5.5 (5-7) 06/18/22 13:20 Ur Specific [place] >= 1.030 (1.005-1.030) 06/18/22 13:20 Urine Protein 1+ (Negative) A 06/18/22 13:20 Urine Glucose (UA) Negative (Normal) 06/18/22 13:20 Urine Ketones Trace (Negative) A 06/18/22 13:20 Urine Blood Negative (Negative) 06/18/22 13:20 Urine Nitrate Negative 06/18/22 13:20 Urine Bilirubin Negative (Negative) 06/18/22 13:20 Urine Urobilinogen 0.2 mg/dL (Negative) 06/18/22 13:20 Ur Leukocyte Esterase Negative (Negative) 06/18/22 13:20 Urine RBC None /hpf (0-2) 06/18/22 13:20 Urine WBC 0-4 /hpf (0-5) H 06/18/22 13:20 Ur Squamous Epith Cells 0-4 /hpf (0-5) H 06/18/22 13:20 Amorphous Sediment 2+ /hpf 06/18/22 13:20 Urine Bacteria Trace /hpf (NONE) 06/18/22 13:20 Hyaline Casts 0-4 /lpf H 06/18/22 13:20 Urine Mucus 1+ /hpf 06/18/22 13:20 Imaging Data Other Imaging: Radiologist's impression: [address] [place] [address] CT Scan Report Signed Patient: Roya Aguilar Unit #: [id number] : 1950 Age/Sex: 72 / F ADM Date: 06/18/22 Loc: ER Room/Bed: Attending Dr: Ordering Provider/Ordering MD: Chilango Foreman MD Date of Service: 06/18/22 Procedure(s): CT head wo con* [id number] Accession Number(s): [id number] Report Number: [id number] WS: [id number] CT HEAD TECHNIQUE: Noncontrast CT of the head obtained from the skullbase to the vertex. CLINICAL INFORMATION: syncope COMPARISON: MRI 2018 DLP: 950.[address] scans at [facility] use at least one of these dose optimization techniques: automated exposure control; mA and/or kV adjustment per patient size (includes targeted exams where dose is matched to clinical indication); or iterative reconstruction. FINDINGS: No evidence of intracranial hemorrhage or mass effect. Ventricular system and basal cisterns are patent. Mild small vessel changes with moderate parenchymal volume loss. No extra-axial fluid collections. No evidence of mass or mass effect. Chronic lacunar infarct RIGHT caudate. Tiny chronic lacunar infarct LEFT thalamus. Paranasal sinuses and mastoid air cells are well aerated. .Normal visualized soft tissues. CT/CT head wo con* [id number] IMPRESSION: ? 1.? No evidence of intracranial hemorrhage or mass effect. 2.? Chronic lacunar infarct RIGHT caudate. Tiny chronic lacunar infarct LEFT thalamus. 3.? Mild small vessel changes. Moderate parenchymal volume loss. 4.? Mastoid air cells are well aerated. Paranasal sinuses are well aerated. 5.? No acute intracranial findings. ? Dictated By: Damion Simmons MD Signed By: Damion Simmons MD Signed Date/Time: 06/18/22 1324 [facility] [address] [place] [address] XRay Report Signed Patient: Roya Aguilar Unit #: [id number] : 1950 Age/Sex: 72 / F ADM Date: 06/18/22 Loc: ER Room/Bed: Attending Dr: Ordering Provider/Ordering MD: Chilango Foreman MD Date of Service: 06/18/22 Procedure(s): XR chest 1V portable [id number] Accession Number(s): [id number] Report Number: [id number] WS: [id number] PORTABLE CHEST HISTORY: syncope COMPARISON: 09/02/2021 Lungs are clear and well expanded. No pleural effusion or pneumothorax. Cardiac size: Normal. Mediastinum/Aorta: Mild atherosclerosis aorta. No osseous abnormality seen. XR/XR chest 1V portable [id number] IMPRESSION: ? Mild atherosclerosis aorta. Stable chest. ? ? ? Dictated By: Trinidad Everett DO Signed By: Trinidad Everett DO Signed Date/Time: 06/18/22 1317 DD/ 1315 Discharge Plan Discharge Patient Disposition: Admitted As Inpatient Clinical Impression: Syncope and collapse, Nausea & vomiting Condition: Stable Coding Level of Care Code ED Half Sole Fitter for Ovig Fwd Exam Comprehensive
[2022-06-18 13:24] LABS: Troponin(5th) Baseline 6 ng/L (0-10)
[2022-06-18 13:39] LABS: Bilirubin Urine Negative (Negative); Blood Urine Negative (Negative); Glucose Urine UA Negative (Normal); Ketones Urine Trace (Negative); Leukocyte Esterase Urine Negative (Negative); Nitrate Urine Negative; Protein Urine 1+ (Negative); Specific Gravity, Urine >= 1.030 (1.005-1.030); Urine Appearance Clear (CLEAR); Urine Color Yellow (Yellow); Urobilinogen Urine 0.2 mg/dL (Negative); pH Urine 5.5 (5-7)
[2022-06-18 13:42] LABS: Add Urine Microscopic? YES
[2022-06-18 13:46] LABS: Blood Urea Nitrogen 9 mg/dL (8-23); Calcium 9.5 mg/dL (8.5-10.5); Carbon Dioxide 24 mmol/L (22-29); Chloride 100 mmol/L (98-107); Glucose 144 mg/dL (65-115); Osmolality Calculated 281 mOsm/kg (285-295); Sodium 135 mmol/L (136-145)
[2022-06-18 13:47] LABS: Amorphous Sediment Urine 2+ /hpf; Bacteria Urine TRACE /hpf; Hyaline Casts Urine 0-4 /lpf; Mucus Urine 1+ /hpf; Squamous Epithelial Cell Urine 0-4 /hpf (0-5); WBC Urine 0-4 /hpf (0-5)
[2022-06-18 13:47] LABS: Anion Gap 16.5 (5-19); Potassium 5.5 mmol/L (3.5-5.1)
[2022-06-18 13:48] LABS: Add Urine Culture? No
--- NOTE | 2022-06-18 13:48 | PC.PHAR ---
PT BROUGHT IN MEDICATION BOTTLES AND STATES SHE KNOWS WHAT SHE TAKES-PT STATES STILL TAKES GLIPIZIDE 5MG DAILY RX BOTTLE DATED 06/18/2021-EXT MED HISTORY SHOWS LAST FILLED 06/18/21 90D/S-
--- NOTE | 2022-06-18 14:14 | ECG_ITS ---
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 Measurements Intervals [place] Rate: 78 P: 37 KS: 143 QRS: -5 QRSD: 74 T: 4 QT: 362 QTc: 413 Interpretive Statements SINUS RHYTHM MODERATE VOLTAGE CRITERIA FOR LVH, CONSIDER NORMAL VARIANT [MEETS CRITERIA IN ONE OF: R(aVL), S(V1), R(V5), R(V5/V6)+S(V1)] NONSPECIFIC T-WAVE ABNORMALITY Compared to ECG 06/18/2022 12:24:43 T-wave abnormality now present Myocardial infarct finding no longer present Electronically Signed On 06-18-2022 17:41:40 CDT by Ron Ochoa M.D. [id number]
[2022-06-18 16:00] LABS: Troponin 5 2HR Delta 0 ABS# (0-10)
--- NOTE | 2022-06-18 16:58 | PM.HP ---
Providers/Chief Complaint Admitting Physician: Joce Sullivan MD Primary Care Provider: Amie Aaron DO Chief Complaint: passed outx2, n/v History of Present Illness Roya Aguilar is a 72 year old female with a past medical history of anemia, COPD, hypertension, hypertriglyceridemia, TIA, [id number] type 2 diabetes mellitus cognitive impairment Alzheimer's disease, memory loss, who presents [facility] for 3 syncopal episodes. Currently she is alert to person, not to place, not to time, she is quite forgetful, she tells me that she has long-term memory loss for which the galantamine patch helps, but now she has developed significant short-term memory loss for which she started a new patch 2 weeks ago she spends roughly 5 minutes trying to find the patches, I we cannot find them on both shoulders. She does not know if she put them on or not. She does have significant short-term memory loss. She tells me that she thinks she had syncopal episodes 3x1 time on Saturday, 2x2 today, but she does not know the nature of the falls or any specific symptomatology associate with the falls or the syncopal episodes. Patient's is not present at bedside for further history taking, and I also called the phone number listed in the chart however no answer. According to ER position, she had 2 episodes since waking up this morning, no prodromal symptoms, no changes in her vision, potentially her syncopal episodes were associate with lightheadedness. She does report a cardiac history, she is not sure if she had a stent or ablation, but this was done in [place]. She does not know if she recently had chest pain or shortness of breath, but currently denies any. She denies a history of CVAs, but in her chart it is listed that she has had CVAs. She does report a history of cardiac arrhythmia but does not know the specifics. Review of Systems Const: Denies: fever(s) Card: Denies: chest pain Resp: Denies: dyspnea GI: Denies: abdominal pain : Denies: difficulty voiding Neuro: Denies: headache(s), numbness in extremities, weakness in extremities, lack of coordination, difficulty walking, frequent falls, dizziness, vertigo, Slurred speech present, difficulty communicating thoughts or involuntary movements Medications/Allergies Home Medications Medication Instructions Recorded Confirmed Last Taken Type mecobalamin (vitamin B12) 1,000 1,000 mcg sublingual QAM 09/10/19 06/18/22 06/18/22 History mcg disintegrating tablet,sublingual flash glucose scanning reader #1 ea 07/11/20 06/18/22 Unknown Rx (FreeStyle Adriel 14 Day [place]) aspirin 325 mg tablet 325 mg PO QAM 08/08/20 06/18/22 06/18/22 History flash glucose sensor (FreeStyle #2 ea 08/07/21 06/18/22 Unknown Rx Adriel 14 Day Sensor kit) albuterol sulfate 90 mcg/actuation 2 puff inhalation Q6H PRN 09/27/21 06/18/22 Unknown Rx aerosol inhaler (ProAir HFA) shortness of breath or wheezing 30 days #8.5 grams galantamine 8 mg 24 hr 8 mg PO QAM #90 caps 05/29/22 06/18/22 06/18/22 08:00 Rx capsule,extended release Ilia Liquid Force Multivitamin 2 cap PO QAM 06/18/22 06/18/22 06/18/22 History Centrum Women Gummies 2 tab PO QAM 06/18/22 06/18/22 06/18/22 History ferrous fumarate-ascorbic 1 tab PO QAM 06/18/22 06/18/22 06/18/22 History acid-ascorbate sod 65 mg iron-125 mg tablet glipizide 5 mg tablet 5 mg PO QAM 06/18/22 06/18/22 Unknown History lisinopril 40 mg tablet 40 mg PO QAM 06/18/22 06/18/22 06/18/22 History omega 7-zry-drs-fish oil 500 mg 2 cap PO QAM 06/18/22 06/18/22 06/18/22 History (200mg-300mg)-1,000 mg capsule (Ultra Flora-3) rivastigmine 4.6 mg/24 hour 1 patch topical DAILY@07 06/18/22 06/18/22 06/18/22 History transdermal patch thiamine HCl (vitamin B1) 250 mg 250 mg PO QAM 06/18/22 06/18/22 06/18/22 History tablet (Vitamin B-1) Allergies Allergy/AdvReac Type Severity Reaction Status Date / Time baclofen Allergy Unknown Verified 06/18/22 12:28 donepezil Allergy Unknown Verified 06/18/22 12:28 pregabalin [From Lyrica] Allergy Unknown Verified 06/18/22 12:28 tuberculin, purified protein Allergy Unknown Verified 06/18/22 12:28 deriva PFSH Acute PFSH: Medical History Anemia Cognitive impairment COPD (chronic obstructive pulmonary disease) Enrolled in chronic care management Essential (primary) hypertension Hypertriglyceridemia Microcytic anemia Seasonal allergies Stomatitis and mucositis, unspecified TIA (transient ischemic attack) Type 2 diabetes mellitus, without long-term current use of insulin Surgical History H/O section H/O lithotripsy S/P appendectomy S/P cholecystectomy S/P gastric bypass S/P hernia repair S/P nasal surgery S/P tonsillectomy and adenoidectomy S/P tubal ligation Family History Father CAD (coronary artery disease) Mother Parkinson disease Stroke Other Hypertension Social History Smoking and tobacco status: never smoked Alcohol intake: never Marital status: Current occupational status: retired Female Reproductive History: Para: 3 Spontaneous abortions: Yes Vitals/I&O/Wt Last Vital Signs Temp 97.8 F 06/18/22 12:25 Pulse 77 06/18/22 15:16 Resp 17 06/18/22 15:00 BP 173/68 06/18/22 15:16 Pulse Ox 98 06/18/22 15:00 O2 Del Method 06/18/22 12:25 06/18/22 06/18/22 06/18/22 06:59 14:59 22:59 Intake Total 1000 / 1000 1000 / 1999 Balance 1000 / 1000 1000 / 1999 Weight last 48 hrs Weight 68.039 kg Physical Exam Const: COMMON NORMALS: no acute distress ORIENTATION/CONSCIOUSNESS: Yes awake, Yes oriented to person and Yes oriented to place; not oriented to time HENMT: COMMON NORMALS: normocephalic HEAD & SCALP: normocephalic Neck/C-Spine: COMMON NORMALS: no JVD Resp: COMMON NORMALS: normal respiratory effort, No retractions, No use of accessory muscles and clear to auscultation bilaterally AUSCULTATION: clear to auscultation bilaterally Cardio: COMMON NORMALS: no JVD, regular rate, regular rhythm, S1 normal heart sound present and S2 normal heart sound present RATE: regular rate RHYTHM: regular rhythm HEART SOUNDS: S1 normal heart sound present and S2 normal heart sound present GI: COMMON NORMALS: Normal to inspection, nondistended, normoactive bowel sounds present, Soft to palpation, non-tender, No hepatosplenomegaly present, no masses and no bruits PALPATION: Yes Soft to palpation and Yes No hepatosplenomegaly present Extremity: COMMON NORMALS: capillary refill normal, no clubbing, cyanosis or edema, no calf tenderness and no pedal edema Neuro: COMMON NORMALS: patient oriented x3, CN's II-XII intact bilaterally, moves all extremities and no focal motor deficits Psych: COMMON NORMALS: mental status grossly normal Data : 06/18/22 12:41 06/18/22 12:41 A&P Assessment and plan (1) Syncope and collapse: Plan Syncope and collapse -Head CT 1.? No evidence of intracranial hemorrhage or mass effect. 2.? Chronic lacunar infarct RIGHT caudate. Tiny chronic lacunar infarct LEFT thalamus. 3.? Mild small vessel changes. Moderate parenchymal volume loss. 4.? Mastoid air cells are well aerated. Paranasal sinuses are well aerated. 5.? No acute intracranial findings. -EKG no acute ST-T wave changes, no arrhythmia events, does have Q waves, no significant troponin elevation -UA with no evidence of UTI -No significant electrolyte abnormalities -Chest x-ray no focal pneumonia -Currently asymptomatic -Does have significant short-term and long-term memory loss, which is chronic for her but acutely worsening in terms of short-term memory loss Plan -Cardiac echo, carotid artery ultrasound -Serial EKGs serial troponins telemetry monitoring -CT of the head does show chronic lacunar infarct on the right, tiny lacunar infarct left thalamus, will monitor for arrhythmia events, continue aspirin statin -Will hold rivastigmine, galantamine, as these potentially could be associated with her lightheadedness and dizziness -We will consider MRI of the brain -Low-dose sliding scale -Orthostats were negative, now she is hypertensive, monitor blood pressure we will consider adding blood pressure medications -Full code -Lovenox for DVT prophylaxis Attestations Medical Necessity Statement*: Patient requires hospitalization, inpatient, greater than 2 midnights, for syncope and collapse Coding Level of Care Code Acute Engineering Mathematician for Talon Bernal Diagnoses Syncope and collapse R58
--- NOTE | 2022-06-18 17:57 | USCV_ITS ---
Roya Aguilar Age: 72 Gender: F : 1950 Exam Date: 06/18/2022 23:42 Ordering Phys: Joce Sullivan MD Technologist: LUKE [place]am [place] [facility] [place]: History of syncope DM2, history of ablation therapy BP: 171 / 73 HR: 65 Rhythm: Sinus Technical Quality: Adequate MEASUREMENTS (Male / Female) Normal Values 2D ECHO LV Diastolic Diameter PLAX 3.9 cm 4.2 - 5.9 / 3.9 - 5.3 cm LV Systolic Diameter PLAX 2.5 cm IVS Diastolic Thickness 1.0 cm 0.6 - 1.0 / 0.6 - 0.9 cm IVS Systolic Thickness 1.0 cm LVPW Diastolic Thickness 1.0 cm 0.6 - 1.0 / 0.6 - 0.9 cm LVPW Systolic Thickness 1.5 cm LVOT Diameter 1.7 cm LV Ejection Fraction 2D Teich 65.6 % LV Ejection Fraction MOD 2C 65.4 % LV Ejection Fraction 2C AL 65.0 % LA Diameter 3.4 cm LA Width 3.9 cm LA Height 4.3 cm RA Width 4.0 cm RA Height 4.4 cm Aorta at Sinotubular Diameter 2.5 cm IVC Diameter 0.9 cm M-MODE Aortic Annulus Diameter 2.4 cm LA Ao Ratio MM 1.4 MV E Point Septal Separation 0.4 cm DOPPLER AV Peak Velocity 158.0 cm/s LVOT Peak Velocity 84.0 cm/s AV Area Cont Eq vti 1.2 cm squared AV Area Cont Eq pk 1.3 cm squared MV Area PHT 3.1 cm squared Mitral E to A Ratio 0.7 MV E' Velocity 46.0 cm/s Mitral E to MV E' Ratio 11.8 Mitral E to LV E' Lateral Ratio 12.5 Mitral E to LV E' Septal Ratio 11.2 TR Peak Velocity 271.8 cm/s TR Peak Gradient 29.5 mmHg TV Peak E Velocity 44.0 cm/s Right Atrial Pressure 5.0 mmHg Pulmonary Artery Systolic Pressu 34.5 mmHg PV Peak Velocity 103.0 cm/s RV Acceleration Time 0.1 s RV Ejection Time 0.4 s RV AcT/ET 0.3 FINDINGS Left Ventricle Normal left ventricular size, systolic function and wall thickness, with no regional wall motion abnormalities. Left ventricular ejection fraction is estimated at 65 %. Normal diastolic function. Right Ventricle Normal right ventricular size and systolic function. Right ventricular systolic pressure 32 mmHg. Right Atrium Normal right atrial size. Right atrial pressure estimated at 3 mmHg. Left Atrium Mildly increased left atrial size. Mitral Valve Structurally normal mitral valve. No mitral valve stenosis. Mild mitral valve regurgitation. Aortic Valve Mildly thickened trileaflet aortic valve. No aortic valve stenosis. Trace aortic valve regurgitation. Tricuspid Valve Structurally normal tricuspid valve. No tricuspid valve stenosis. Trace tricuspid valve regurgitation. Pulmonic Valve Structurally normal pulmonic valve. No pulmonary valve stenosis. No pulmonary valve regurgitation. Pericardium No pericardial effusion. Aorta Normal size aortic root and proximal ascending aorta. IVC Normal IVC dimension with >50% respiratory change of the inferior vena cava. CONCLUSIONS 1. Normal left ventricular size, systolic function and wall thickness, with no regional wall motion abnormalities. Left ventricular ejection fraction is estimated at 65 %. Normal diastolic function. 2. Normal right ventricular size and systolic function. 3. Mild mitral valve regurgitation. 4. Trace aortic valve regurgitation. 5. No prior similar studies to compare. Cheyanne Jessica MD (Electronically Signed) Final Date: 19 June 2022 13:14 S
--- NOTE | 2022-06-18 17:57 | USCV_ITS ---
Roya Aguilar Age: 72 Gender: F : 1950 Exam Date: 06/18/2022 23:13 Ordering Phys: Joce Sullivan MD Technologist: LUKE Exam Location: [facility] [place] Indication: long history of syncope -- over more than 30 years. Recently three times in one day -- 06/17/2022. Never smoked. DM2 Risk Factors: long history of syncope -- over more than 30 years. Recently three times in one day -- 06/17/2022. Never smoked. DM2 Previous Vascular Surgery: none Right Brachial BP: / Left Brachial BP: / Right Left Velocity (cm/s) Spectral Plaque Velocity (cm/s) Spectral Plaque Syst/Diast Broadening Syst/Diast Broadening 76.10/ 14.30 None None Prox CCA 87.10 / 15.40 None None 72.80/ 13.20 None None Mid CCA 77.20 / 18.70 None None 60.60/ 16.30 Min Homo Distal CCA 83.80 / 17.60 Min Homo 81.60/ 15.50 Min Blane Prox ICA 75.00 / 13.20 Min Blane 73.00/ 23.30 Min Homo Mid ICA 68.40 / 18.70 Min Homo 67.60/ 19.40 Min Homo Distal ICA 46.00 / 13.10 Min Homo 85.40 Min Homo ECA 69.50 Min Homo 1.07 ICA/CCA 0.86 Antegrade Vertebral Antegrade 44.30/ 12.40 cm/s 47.40/ 14.30 cm/s Tri Subclavian Tri 90.90 89.30 FINDINGS Comparison:. 11/06/16 No significant elevation of systolic or diastolic velocities. Mild bilateral scattered calcified plaque and intimal thickening throughout the common carotid arteries and extending through the bifurcation. Antegrade vertebral arteries. CONCLUSIONS Bilateral ICA stenosis less than 50%. No interval change in stenosis since prior exam. Mild carotid atherosclerosis. Dr. Trinidad Everett DO (Electronically Signed) Final Date: 19 June 2022 07:18 S
--- NOTE | 2022-06-18 18:14 | ECG_ITS ---
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 Measurements Intervals [place] Rate: 79 P: 62 OK: 158 QRS: -6 QRSD: 83 T: 16 QT: 371 QTc: 427 Interpretive Statements SINUS RHYTHM MINIMAL VOLTAGE CRITERIA FOR LVH, CONSIDER NORMAL VARIANT [MEETS CRITERIA IN ONE OF: R(aVL), S(V1), R(V5), R(V5/V6)+S(V1)] NONSPECIFIC T-WAVE ABNORMALITY Compared to ECG 06/18/2022 15:47:03 No significant changes Electronically Signed On 06-18-2022 22:44:14 CDT by Ron Ochoa M.D. [id number]
[2022-06-18 18:44] LABS: Magnesium 2.1 mg/dL (1.7-2.3)
[2022-06-18] MEDS: pantoprazole 40 mg SDV IVP (19:04)
[2022-06-18] MEDS: enoxaparin 40 mg/0.4 mL Syringe SUBCUT (19:04)
[2022-06-18 19:10] LABS: Glucose Point of Care 141 mg/dL (70-110)
[2022-06-18 19:53] LABS: Lactic Sepsis W/Reflex 1.1 mmol/L (0.5-2.2)
[2022-06-18 20:19] LABS: Glucose Point of Care 135 mg/dL (70-110)
[2022-06-18] MEDS: atorvastatin 40 mg Tablet PO (21:45)
[2022-06-19] VITALS (8 sets, daily range): BP systolic 101–166; BP diastolic 56–94; PULSE 63–84; RESP 16–18; TEMP 36.4–36.8; O2SAT 93–98
[2022-06-19] MEDS: lisinopril 20 mg Tablet 40 MG PO (05:21)
[2022-06-19] MEDS: aspirin 325 mg Tablet PO (05:21)
[2022-06-19] MEDS: thiamine 100 mg Tablet 250 MG PO (05:21)
[2022-06-19 05:46] LABS: Alanine Aminotransferase 22 U/L (0-33); Albumin Level 3.7 g/dL (3.5-5.2); Alkaline Phosphatase 100 U/L (35-105); Anion Gap 13.6 (5-19); Aspartate Amino Transferase 25 U/L (0-32); Blood Urea Nitrogen 7 mg/dL (8-23); Calcium 9.1 mg/dL (8.5-10.5); Carbon Dioxide 27 mmol/L (22-29); Chloride 100 mmol/L (98-107); Glucose 138 mg/dL (65-115); Magnesium 1.8 mg/dL (1.7-2.3); Osmolality Calculated 284 mOsm/kg (285-295); Phosphorus 3.2 mg/dL (2.5-4.5); Potassium 3.6 mmol/L (3.5-5.1); Sodium 137 mmol/L (136-145); Total Bilirubin 1.2 mg/dL (0.15-1.2); Total Protein 5.7 g/dL (6.6-8.7)
[2022-06-19 06:46] LABS: Glucose Point of Care 253 mg/dL (70-110)
[2022-06-19] MEDS: insulin lispro 100 unit/1 mL SUBCUT (08:33)
--- NOTE | 2022-06-19 11:04 | PC.CHAP ---
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 [] Patient/Family/Request visit [] Outpatient visit [] Follow-up visit [] Physician referral [] Code/Alert [x] Routine visit [] Staff referral [] Actively dying [] Patient sleeping [] Family support [] [] Out of room [] Palliative care [] [] Receiving care in room [] Pre-surgical visit [] Trauma [] Long length of stay [] ICU visit [] Other: Relational/Emotional Strength [x] Patient feels connected with others/family/visitors/staff [] Distress [] Loneliness/isolation [] Abandonment Spirituality of Patient x[] Person of Chantel [x] Attends Uatsdin of their Chantel [x] Believes in Prayer [] Reads Bible or Sikhism materials [] There are Spiritual issues to be addressed Dinkey Mechanic Interventions x [x] Prayer [x] Active listening [] Non-anxious presence [] Spiritual/emotional support [] Crisis/trauma care [] Spiritual counseling [] Bereavement support [] Provided bereavement packet [] Provided Bible/devotional materials [] Provided toy/stuffed animal, coloring book to patient or family member [] Provided Communion [] Anointing/[place] [] Salvation [x] Completed spiritual assessment [] Other: Impact on Illness or Injury [] Angry [] Fearful [] Anxious [] Often cries [] Exhaustion [] Unable to work [] Unable to attend amish [] Unable to walk/stand [] Unable to read [] Unable to drive [] Unable to eat/drink [] Unable to sleep [] Unable to be with family [] Patient intubated [] Other: Summary Time spent with patient 10 min
[2022-06-19 11:13] LABS: Glucose Point of Care 94 mg/dL (70-110)
--- NOTE | 2022-06-19 13:45 | P.DS_ITS ---
Discharge Providers Date of Admission: 06/18/22 17:57 Date of Discharge: June 19, 2022 Attending Provider at Admission: Joce Sullivan MD Attending Provider at Discharge: Joce Sullivan MD Primary Care Provider: Amie Aaron DO Diagnoses at Discharge Discharge Diagnosis (1) Syncope and collapse: Status: Acute Reason for Visit Reason for Visit: passed outx2, n/v Hospital Course Hospital Course Roya Aguilar is a 72 year old female with a past medical history of anemia, COPD, hypertension, hypertriglyceridemia, TIA, lwx-[id number] type 2 diabetes mellitus cognitive impairment Alzheimer's disease, memory loss, who presents [facility] for 3 syncopal episodes.? Patient was admitted to [facility] for syncopal episodes, no significant electrolyte abnormalities, no significant hypoglycemia, no significant ST-T wave changes seen on EKG, no significant troponin elevation, perhaps she had slight QTC prolongation at 440 ms, no telemetry events, no pneumonia, no UTI, cardiac echo had no acute findings, carotid artery ultrasound no acute findings, CT of the head had no acute findings, she had no significant orthostatic hypotension. She is monitored as inpatient, no recurrent syncopal episodes. On discharge I have advised patient to follow-up with Dr. Hudson, as there is a question of patient's dementia medication could be a source of there are lightheadedness although I do not feel that its a cause of her passing out. In addition there is a thought of performing a MRI, she has 2 tiny lacunar infarcts, which are chronic in nature. Nonetheless, I have ordered a event monitor, although she denies any cardiac symptoms, with her long-term and now her short-term memory loss a, cardiology will follow and monitor, patient is to follow-up with cardiology in 1 month to follow-up event monitor and consideration of stress testing. I have gone over patient's results with patient's , and patient however she is quite forgetful, all parties voiced understanding, all questions answered, agreed to proceed Physical Exam Const: COMMON NORMALS: no acute distress and alert ORIENTATION/CONSCIOUS NESS: Yes oriented to person, Yes oriented to place and Yes oriented to time Eye: COMMON NORMALS: Equal, round and reactive pupils present and EOMs intact bilaterally PUPIL: Yes Equal, round and reactive pupils present Resp: COMMON NORMALS: normal respiratory effort, No retractions, No use of accessory muscles and clear to auscultation bilaterally AUSCULTATION: clear to auscultation bilaterally Cardio: COMMON NORMALS: regular rate, regular rhythm, S1 normal heart sound present and S2 normal heart sound present RATE: regular rate RHYTHM: regular rhythm HEART SOUNDS: S1 normal heart sound present and S2 normal heart sound present GI: COMMON NORMALS: Normal to inspection, nondistended, normoactive bowel sounds present, non-tender and no masses Extremity: COMMON NORMALS: no clubbing, cyanosis or edema and no pedal edema Neuro: SENSORIUM/ORIENTATION: Yes alert, Yes oriented to person, Yes oriented to place and Yes oriented to time Psych: COMMON NORMALS: mental status grossly normal Discharge Data Studies Completed and Pending Completed Studies During Hospitalization Category Date Time Status CT head wo con* [id number] Stat Cat Scan 06/18/22 12:26 Completed XR chest 1V portable [id number] Stat Exams 06/18/22 12:14 Completed CV carotid duplex BI* [id number] Routine Ultrasound 06/18/22 17:57 Completed CV. echo complete* [id number] Routine Ultrasound 06/18/22 17:57 Completed Radiology Impressions Chest X-Ray 06/18/22 12:14 IMPRESSION: Mild atherosclerosis aorta. Stable chest. Head CT 06/18/22 12:26 IMPRESSION: 1. No evidence of intracranial hemorrhage or mass effect. 2. Chronic lacunar infarct RIGHT caudate. Tiny chronic lacunar infarct LEFT thalamus. 3. Mild small vessel changes. Moderate parenchymal volume loss. 4. Mastoid air cells are well aerated. Paranasal sinuses are well aerated. 5. No acute intracranial findings. Laboratory Results WBC 7.9 10^3/uL (4.0-10.0) 06/18/22 12:41 RBC 4.55 10^6/uL (4.1-5.3) 06/18/22 12:41 Hgb 13.8 g/dL (11.5-15.3) 06/18/22 12:41 Hct 40.5 % (37.0-47.0) 06/18/22 12:41 MCV 89.0 fl (81-99) 06/18/22 12:41 MCH 30.3 pg (28.0-34.0) 06/18/22 12:41 MCHC 34.1 g/dL (30.0-36.0) 06/18/22 12:41 RDW 12.5 % (12.1-15.1) 06/18/22 12:41 Plt Count 305 10^3/cmm (130-400) 06/18/22 12:41 MPV 9.2 fL (7.4-10.4) 06/18/22 12:41 Neut % (Auto) 82.2 % 06/18/22 12:41 Lymph % (Auto) 12.3 % 06/18/22 12:41 [place] % (Auto) 4.4 % 06/18/22 12:41 Eos % (Auto) 0.3 % 06/18/22 12:41 Baso % (Auto) 0.5 % 06/18/22 12:41 Neut # (Auto) 6.49 10^3/uL (1.8-7.7) 06/18/22 12:41 Lymph # (Auto) 1.0 10^3/uL (0.8-4.8) 06/18/22 12:41 [place] # (Auto) 0.4 10^3/uL (0.2-0.9) 06/18/22 12:41 Eos # (Auto) 0.0 10^3/uL (0.0-0.8) 06/18/22 12:41 Baso # (Auto) 0.0 10^3/uL (0.0-0.1) 06/18/22 12:41 Nucleated RBC % (auto) 0 % 06/18/22 12:41 Nucleated RBCs # 0.0 /100WBC 06/18/22 12:41 Sodium 137 mmol/L (136-145) 06/19/22 04:40 Potassium 3.6 mmol/L (3.5-5.1) 06/19/22 04:40 Chloride 100 mmol/L (98-107) 06/19/22 04:40 Carbon Dioxide 27 mmol/L (22-29) 06/19/22 04:40 Anion Gap 13.6 (5-19) 06/19/22 04:40 BUN 7 mg/dL (8-23) L 06/19/22 04:40 Creatinine 0.5 mg/dL (0.5-0.9) 06/19/22 04:40 GFR Calculation Not Reportable 06/19/22 04:40 Glucose 138 mg/dL (65-115) H 06/19/22 04:40 POC Glucose 94 mg/dL (70-110) 06/19/22 10:55 Calculated Osmolality 284 mOsm/kg (285-295) L 06/19/22 04:40 Lactic Acid 1.1 mmol/L (0.5-2.2) 06/18/22 18:53 Calcium 9.1 mg/dL (8.5-10.5) 06/19/22 04:40 Phosphorus 3.2 mg/dL (2.5-4.5) 06/19/22 04:40 Magnesium 1.8 mg/dL (1.7-2.3) 06/19/22 04:40 Total Bilirubin 1.2 mg/dL (0.15-1.2) 06/19/22 04:40 AST 25 U/L (0-32) 06/19/22 04:40 ALT 22 U/L (0-33) 06/19/22 04:40 Alkaline Phosphatase 100 U/L (35-105) 06/19/22 04:40 Troponin T Baseline 6 ng/L (0-10) 06/18/22 12:41 Troponin T 120 Minute 6.00 ng/L (0-10) 06/18/22 15:03 Delta Troponin T 0 ABS# (0-10) 06/18/22 15:03 Troponin T Hi Sens 6Hr 6.20 ng/L (0-10) 06/18/22 18:53 Troponin T Hi Sens 6Hr Delta 0.20 ng/L (0-12) 06/18/22 18:53 Total Protein 5.7 g/dL (6.6-8.7) L 06/19/22 04:40 Albumin 3.7 g/dL (3.5-5.2) 06/19/22 04:40 Globulin 2.0 g/dL (1.3-4.6) 06/19/22 04:40 TSH 1.60 uIU/mL (0.27-4.20) 06/18/22 16:56 Urine Color Yellow (Yellow) 06/18/22 13:20 Urine Appearance Clear (CLEAR) 06/18/22 13:20 Urine pH 5.5 (5-7) 06/18/22 13:20 Ur Specific [place] >= 1.030 (1.005-1.030) 06/18/22 13:20 Urine Protein 1+ (Negative) A 06/18/22 13:20 Urine Glucose (UA) Negative (Normal) 06/18/22 13:20 Urine Ketones Trace (Negative) A 06/18/22 13:20 Urine Blood Negative (Negative) 06/18/22 13:20 Urine Nitrate Negative 06/18/22 13:20 Urine Bilirubin Negative (Negative) 06/18/22 13:20 Urine Urobilinogen 0.2 mg/dL (Negative) 06/18/22 13:20 Ur Leukocyte Esterase Negative (Negative) 06/18/22 13:20 Urine RBC None /hpf (0-2) 06/18/22 13:20 Urine WBC 0-4 /hpf (0-5) H 06/18/22 13:20 Ur Squamous Epith Cells 0-4 /hpf (0-5) H 06/18/22 13:20 Amorphous Sediment 2+ /hpf 06/18/22 13:20 Urine Bacteria Trace /hpf (NONE) 06/18/22 13:20 Hyaline Casts 0-4 /lpf H 06/18/22 13:20 Urine Mucus 1+ /hpf 06/18/22 13:20 Vitals Last Vital Signs Temp 97.7 F 06/19/22 11:36 Pulse 63 06/19/22 11:36 Resp 18 06/19/22 11:36 BP 101/56 06/19/22 11:36 Pulse Ox 95 06/19/22 11:36 O2 Del Method 06/19/22 09:04 Discharge Plan Discharge Patient Disposition: Home Condition: Stable Prescriptions: New atorvastatin 40 mg Tablet 40 mg PO BEDTIME 30 Days Qty: 30 0RF Continued aspirin 325 mg tablet 325 mg PO QAM mecobalamin (vitamin B12) 1,000 mcg tablet,disintegrating 1,000 mcg SUBLINGUAL QAM (DME) FreeStyle Adriel 14 Day [place] Misc See Rx Instructions .ROUTE .MEDSUPPLY Qty: 1 0RF Rx Instructions: As directed (DME) FreeStyle Adriel 14 Day Sensor Kit See Rx Instructions .ROUTE .MEDSUPPLY Qty: 2 5RF Rx Instructions: As directed albuterol sulfate [ProAir HFA] 90 mcg/actuation HFA aerosol inhaler 2 puff inhalation Q6H PRN (Reason: shortness of breath or wheezing) 30 Days Qty: 8.5 0RF galantamine 8 mg capsule,ext rel. pellets 24 hr 8 mg PO QAM Qty: 90 0RF Rx Instructions: administer with breakfast 340B Vitamin B-1 250 mg Tablet 250 mg PO QAM glipizide 5 mg tablet 5 mg PO QAM Ultra Inez-3 500-1,000 mg Capsule 2 cap PO QAM Iron Plus Vitamin C 65 mg iron- 125 mg Tablet 1 tab PO QAM Ilia Liquid Force Multivitamin 2 cap PO QAM Centrum Women Gummies 2 tab PO QAM lisinopril 40 mg tablet 40 mg PO QAM rivastigmine 4.6 mg/24 hour patch 24 hour 1 patch topical DAILY@07 Discharge Orders: Discharge Order (Routine); Ordered 06/19/22 Ordered By: Joce Sullivan Other Ambulatory Orders: MCT/Event Monitor 30 Days (Routine) Timeframe: 1 Day Facility: [facility] - Location: Radiology Ordered By: Joce Sullivan Referrals: Gracy Hudson MD [Physician] - 06/20/22 12:00 pm () Garret Redding MD [Physician] - 08/14/22 2:45 pm (Your appointment for your 30 day event monitor will be 06-26-22 at 10:45 am) Amie Aaron DO [Primary Care Provider] - 06/25/22 1:45 pm Discharge Diet: Cardiac Discharge Activity: Resume usual activity Patient Instructions: Syncope (DC), Opioid Safety Discharge Attestations Time Spent in Discharge Care*: less than 30 min Status at Discharge: Cognitive status at discharge: cognitively intact , Behavioral status at discharge: cooperative , Quality Metrics Clinical Quality Measures [ No reported AMI, CVA or VTE this stay] Coding Level of Care Code Acute Chg FW DC note Exam Detailed Diagnoses Syncope and collapse R55
[2022-06-19] MEDS: magnesium sulfate premix 2 GM/50 ML PIGGYBACK IV (14:05)
== END 2022-06-19 15:10 | disposition home or self-care (01) | DRG 312 ==
LOC: ER 13:04 → MEDSURG 21:05
PROVIDERS: Admitting Provider Family Medicine; Emergency Provider Emergency Medicine; PCP Family Medicine; Visit Provider Family Medicine
DX: R55 Syncope and collapse (principal); J44.9 Chronic obstructive pulmonary disease, unspecified; R11.2 Nausea with vomiting, unspecified; G30.9 Alzheimer's disease, unspecified; F02.80 Dementia in other diseases classified elsewhere, unspecified severity, without behavioral disturbance, psychotic disturbance, mood disturbance, and anxiety; I10 Essential (primary) hypertension; E78.1 Pure hyperglyceridemia; E11.9 Type 2 diabetes mellitus without complications; E78.5 Hyperlipidemia, unspecified; D64.9 Anemia, unspecified; Z86.73 Personal history of transient ischemic attack (TIA), and cerebral infarction without residual deficits; Z90.49 Acquired absence of other specified parts of digestive tract; Z98.84 Bariatric surgery status; Z79.84 Long term (current) use of oral hypoglycemic drugs; Z79.899 Other long term (current) drug therapy; Z79.82 Long term (current) use of aspirin; Z86.2 Personal history of diseases of the blood and blood-forming organs and certain disorders involving the immune mechanism
CPT/HCPCS: 36415; 36416; 70450; 71045; 80048; 80053; 81001; 82962; 83605; 83735; 84100; 84443; 84484; 85025; 93005; 93306; 93880; 96361; 96365; 96372; 97116; 97161; 97165; 99285; C9113; J1650; J1815; J3475

== ENCOUNTER → 2022-06-20 11:25 | Outpatient (BNVA) | payer MEDICARE, BC, SELFPAY | PROVIDERS: PCP Family Medicine; Visit Provider Specialist | DX: G31.84 Mild cognitive impairment of uncertain or unknown etiology (principal); R55 Syncope and collapse | CPT/HCPCS: 99214; 99215 ==

== ENCOUNTER → 2022-06-25 15:20 | Outpatient (BNVA) | payer MEDICARE, BC, SELFPAY | PROVIDERS: PCP Family Medicine; Visit Provider Family Medicine | DX: E11.9 Type 2 diabetes mellitus without complications (principal) | CPT/HCPCS: 83036 ==

== ENCOUNTER → 2022-08-14 14:16 | Outpatient (BNVA) | payer MEDICARE, BC, SELFPAY | PROVIDERS: PCP Family Medicine; Visit Provider Internal Medicine Cardiovascular Disease | DX: R55 Syncope and collapse (principal); R94.31 Abnormal electrocardiogram [ECG] [EKG]; G31.84 Mild cognitive impairment of uncertain or unknown etiology; I10 Essential (primary) hypertension; E78.1 Pure hyperglyceridemia; E11.9 Type 2 diabetes mellitus without complications; Z79.84 Long term (current) use of oral hypoglycemic drugs | CPT/HCPCS: 99205 ==

== ENCOUNTER → 2022-09-17 16:24 | Outpatient (BNVA) | payer MEDICARE, BC, SELFPAY | PROVIDERS: PCP Family Medicine; Visit Provider Nurse Practitioner Family | DX: S99.922A Unspecified injury of left foot, initial encounter (principal); W01.0XXA Fall on same level from slipping, tripping and stumbling without subsequent striking against object, initial encounter | CPT/HCPCS: 73630 ==

== ENCOUNTER → 2022-09-24 09:52 | Outpatient (BNVA) | payer MEDICARE, BC, SELFPAY | PROVIDERS: PCP Family Medicine; Visit Provider Specialist | DX: G30.9 Alzheimer's disease, unspecified (principal); F02.80 Dementia in other diseases classified elsewhere, unspecified severity, without behavioral disturbance, psychotic disturbance, mood disturbance, and anxiety | CPT/HCPCS: 96116; 99214 ==

== ENCOUNTER 2022-10-23 08:45 | Outpatient (CLI) | payer MEDICARE, BC, SELFPAY ==
--- NOTE | 2022-10-23 | ECG_ITS ---
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 Interpretive Statements NAME OF STUDY: LEXISCAN SESTAMIBI STRESS TEST INDICATION: Atypical Chest Pain;syncope, PROCEDURE: At the baseline, the EKG revealed sinus bradycardia with poor R wave progression. Diffuse nonspecific T wave changes. The baseline heart was 58 bpm with a blood pressue of 133/67 mm of Hg Lexiscan was infused over a period of 20 seconds. A total of 0.4 milligrams of Lexiscan was infused. The stress phase was continued for a total of 5 minutes. Heart rate at the end of the stress phase was 63 bpm with a blood pressure 122/65 mm of Hg. The EKG at the peak infusion revealed no significant changes. Sestamibi was injected 20 seconds after the Lexiscan infusion. Heart rate at the end of the recovery phase was 62 bpm with a blood pressure of 133/64 mm of Hg. CONCLUSION: 1. No significant EKG changes with the LexiScan infusion 2. No LexiScan induced chest pain or cardiac arrhythmia 3. Normal blood pressure and heart rate response 4. Sestamibi/sestamibi perfusion scan pending; see separate report. Electronically Signed On 10-27-2022 13:25:15 VAT HOUSE SUPERVISOR by Garret Redding M.D. [id number]
--- NOTE | 2022-10-23 08:55 | NMCV_ITS ---
NM lisa perf SPECT r/s* [id number] Roya Aguilar Age: 72 Gender: F : 1950 Exam Date: 10/23/2022 10:36 Ordering Phys: Garret Redding MD ([email or web address]) Technologist: HYUN Castanon Exam Location: [facility] Indications: CORONARY ANGIOPLASTY STATUS STRESS TEST Please see separate stress test report in [facility] for full findings IMAGE PROTOCOL Rest/Stress 1 Lexiscan Day Radiopharmaceutical Dose (mCi) Administration Site Administered by Rest: Tc-99m 10.8 IV HYUN Collins Sestamibi Stress:Tc-99m 32.5 IV HYUN Collins Sestamibi Rest: 23-Oct-2022 60 Discovery 630 Stress: 23-Oct-2022 30 Discovery 630 0.4mg Lexiscan. Supine position only as patient was unable to lay prone. SPECT RESULTS Technical Quality: Excellent Raw Data Analysis: Normal Image Corrections: No attenuation or motion correction applied Summed Stress Score: 0 Summed Rest Score: 0 Summed Difference Score: 0 PERFUSION FINDINGS Fairly uniform myocardial tracer uptake with no significant perfusion abnormalities FUNCTIONAL RESULTS (calculated via Gated SPECT) Stress Image LV EF (%): 89 Stress EDV (mL):70 TID: 0.84 Stress ESV (mL):8 FUNCTIONAL FINDINGS: Segmental wall motion analysis revealing no gross wall motion abnormalities IMPRESSIONS 1. Unremarkable Myocardial perfusion imaging. 2. Normal LV ejection fraction of 89%. 3. LV wall motion analysis revealing no gross wall motion abnormalities. 4. Normal LV volume Low probability for coronary ischemia, based on the above findings. Dr Garret Redding MD FAC (Electronically Signed) Final Date: 23 October 2022 12:37 S
[2022-10-23 09:06] VITALS: BMI 32.8
[2022-10-23] MEDS: regadenoson 0.4 Mg/5 ml Syringe IVP (11:23)
[2022-10-23 11:48] VITALS: BP 125/65; PULSE 60
== END 2022-10-23 08:46 | disposition home or self-care (01) ==
PROVIDERS: PCP Family Medicine; Visit Provider Internal Medicine Cardiovascular Disease
DX: Z98.61 Coronary angioplasty status (principal)
CPT/HCPCS: 36415; 78452; 93017; 96374; A9500; J2785

== ENCOUNTER 2023-01-26 05:19 | Emergency (ER) | payer MEDICARE, BC, SELFPAY ==
--- NOTE | 2023-01-26 05:22 | CTR_ITS ---
PROCEDURE INFORMATION: Exam: CT Head Without Contrast Exam date and time: 01/26/2023 5:23 AM Age: 72 years old Clinical indication: Pain; Headache; Patient HX: Awoken from sleep at 0300 with severe PARK and left hand tingling. TECHNIQUE: Imaging protocol: Computed tomography of the head without contrast. Radiation optimization: All CT scans at this facility use at least one of these dose optimization techniques: automated exposure control; mA and/or kV adjustment per patient size (includes targeted exams where dose is matched to clinical indication); or iterative reconstruction. REPORTING DATA: Count of CT and Cardiac NM exams in prior 12 months: This patient has received 2 known CTs and 0 known cardiac nuclear medicine studies in the 12 months prior to the current study. COMPARISON: CT head wo con* [id number] 06/18/2022 1:02 PM RADIATION DOSE METRICS: Total DLP (mGy-cm): 1031.78 FINDINGS: Brain: There is mild diffuse cerebral atrophy present, consistent with this patient's age. No evidence of acute intracranial hemorrhage. No extra-axial fluid collections. There is mild lucency in the cerebral white matter, consistent with microvascular disease. There is possible subtle new asymmetric low-density in right posterior limb internal capsule and can not exclude an acute lacunar infarct. This could be further evaluated with MRI if desired. There are chronic lacunar infarcts in right anterior limb of internal capsule and left thalamus. Hopson white differentiation is intact, without evidence of acute territorial large vessel infarct. No evidence of mass. Cerebral ventricles: No ventriculomegaly. Paranasal sinuses: There is no significant mucosal thickening in paranasal sinuses. No air-fluid levels. Mastoid air cells: No significant mastoid effusion. Bones/joints: No acute fracture. Soft tissues: Unremarkable as visualized. Vasculature: There is vascular calcification. CT/CT head wo con* [id number] IMPRESSION: Possible subtle new low-density in right posterior limb of internal capsule which could be further evaluated with MRI.
[2023-01-26 05:26] VITALS: BP 195/104; PULSE 78; RESP 20; TEMP 36.8; O2SAT 96; BMI 33.2
--- NOTE | 2023-01-26 05:28 | XRR_ITS ---
PROCEDURE INFORMATION: Exam: XR Chest Exam date and time: 01/26/2023 5:34 AM Age: 72 years old Clinical indication: Prior surgery; Surgery date: 6+ months; Surgery type: Gb. Gastric bypass; Patient HX: Arrival via EMS for severe PARK and left hand tingling. Hypertensive on monitor. ; Additional info: Chest neck pressure TECHNIQUE: Imaging protocol: Radiologic exam of the chest. Views: 1 view. COMPARISON: CR XR chest 1V portable [id number] 06/18/2022 12:46 PM FINDINGS: Lungs: No consolidation. Pleural spaces: Unremarkable. No pleural effusion. No pneumothorax. Heart/Mediastinum: No significant cardiomegaly. Bones/joints: No acute finding. Spondylosis. XR/XR chest 1V portable [id number] IMPRESSION: No acute finding.
--- NOTE | 2023-01-26 05:30 | ECG_ITS ---
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 Measurements Intervals [place] Rate: 67 P: 42 DC: 147 QRS: -4 QRSD: 85 T: 11 QT: 394 QTc: 418 Interpretive Statements SINUS RHYTHM LOW QRS VOLTAGE IN PRECORDIAL LEADS [QRS DEFLECTION < 1.0 mV IN CHEST LEADS] MODERATE VOLTAGE CRITERIA FOR LVH, CONSIDER NORMAL VARIANT [MEETS CRITERIA IN ONE OF: R(aVL), S(V1), R(V5), R(V5/V6)+S(V1)] NONSPECIFIC T-WAVE ABNORMALITY Compared to ECG 06/18/2022 18:47:58 Low QRS voltage now present T-wave abnormality still present Electronically Signed On 01-26-2023 19:20:01 CDT by Garret Redding M.D. [id number]
[2023-01-26 05:33] VITALS: BP 197/96; PULSE 75; RESP 19; O2SAT 97
--- NOTE | 2023-01-26 05:46 | ED_ITS ---
HPI - Neuro Symptoms/Deficit General: Chief Complaint: Neuro Symptoms/Deficit Stated Complaint: AMS Time Seen by Provider: 01/26/23 05:20 History of Present Illness: 72-year-old female with a history of mild dementia and diabetes. No history of stroke. She presents with onset around 3 AM of left-sided temporal head pain which woke her from sleep. She notes that it felt like something popped in her head. Pain began to subside after a bed. EMS was called. In route to the hospital, discomfort came back in the head, and the patient began to experience jaw pain and left-sided neck pain radiating into her left hand. This is still present, although improved. No vision changes. No significant numbness or tingling. No focal weakness. No problems with language Onset (ago): hour(s) Timing confirmed by: spouse Location: other History of same: No Severity: moderate Relieving factors: none Exacerbating factors: none Associated symptoms: Reports headache(s); Deny chest pain, cough, diaphoresis, fevers/chills, nausea, seizures, short of breath, vertigo, vomiting or weakness Review of Systems Const: Denies: fever(s) or diaphoresis Eyes: Denies: change in vision ENMT: Denies: throat pain Card: Denies: chest pain Resp: Denies: dyspnea, productive cough or non-productive cough GI: Denies: abdominal pain, nausea or vomiting Neuro: Reports: headache(s); Denies: vertigo [facility] ED PFSH: Medical History (Updated 01/26/23 @ 06:48 by Keith Palomo DO) Anemia Cognitive impairment COPD (chronic obstructive pulmonary disease) Enrolled in chronic care management Essential (primary) hypertension Hypertriglyceridemia Microcytic anemia Seasonal allergies Stomatitis and mucositis, unspecified TIA (transient ischemic attack) Type 2 diabetes mellitus, without long-term current use of insulin Surgical History H/O section H/O lithotripsy S/P appendectomy S/P cholecystectomy S/P gastric bypass S/P hernia repair S/P nasal surgery S/P tonsillectomy and adenoidectomy S/P tubal ligation Family History Father CAD (coronary artery disease) Mother Parkinson disease Stroke Dementia Family/Other Cancer Sister Dementia Other Hypertension Denies family history of Diabetes Clotting disorder Chronic kidney disease (CKD) Suicide Anesthesia complication Bleeding disorder Lung disease Social History Smoking and tobacco status: never smoked Alcohol intake: never Substance/Drug Use: never Marital status: Current occupational status: retired Female Reproductive History: Para: 3 Spontaneous abortions: Yes NIH stroke score NIHSS: Level Of Consciousness - 1a: 0 Level Of Consciousness Questions - 1b: One Correct Level Of Consciousness Commands - 1c: Both Correct Best Gaze - 2: Normal Visual Freeman - 3: No Visual Loss Facial Palsy - 4: Normal Motor Arm Right - 5: No Drift Motor Arm Left - 5: No Drift Motor Leg Right - 6: No Drift Motor Leg Left - 6: No Drift Limb Ataxia - 7: Absent Sensory - 8: Normal Best Language - 9: No Aphasia Dysarthia - 10: Normal Extinction And Inattention - 11: 0 Score: Total Score: 1 Physical Exam Const: COMMON NORMALS: no acute distress GENERAL APPEARANCE: cooperative; not ill appearing and not frail appearing HENMT: COMMON NORMALS: normocephalic, atraumatic and Normal external nose present HEAD & SCALP: normocephalic and atraumatic FACE & SINUS: normal facial exam and face symmetric NOSE: Normal external nose present Eye: COMMON NORMALS: Equal, round and reactive pupils present and EOMs intact bilaterally PUPIL: Yes Equal, round and reactive pupils present Neck/C-Spine: GENERAL: Yes trachea midline Chest: CHEST: Yes Symmetrical chest wall rise Resp: COMMON NORMALS: normal respiratory effort, No retractions, No use of accessory muscles and clear to auscultation bilaterally AUSCULTATION: clear to auscultation bilaterally Cardio: COMMON NORMALS: regular rate and regular rhythm RATE: regular rate RHYTHM: regular rhythm GI: COMMON NORMALS: Normal to inspection, nondistended, normoactive bowel sounds present Extremity: COMMON NORMALS: no pedal edema Neuro: AGNIESZKA COMA SCALE: document GCS findings Agnieszka coma scale eye opening: Spontaneous Agnieszka coma scale verbal response: Orientated Agnieszka coma scale motor response: Obey commands [place] coma scale total score: 15 SENSORY EXAM: Yes extremities (intact) Psych: COMMON NORMALS: speech normal SPEECH: Yes normal speech Skin: COMMON NORMALS: no rashes or lesions noted GENERAL SKIN EXAM: no rashes or lesions noted Course Vital Signs: Vital signs: Vital Signs Temperature 98.3 F 01/26/23 05:26 Pulse Rate 67 01/26/23 06:03 Respiratory Rate 14 01/26/23 06:03 Blood Pressure 199/99 01/26/23 06:03 Pulse Oximetry 97 01/26/23 06:03 Oxygen Delivery Me thod Room Air 01/26/23 06:03 MDM - Neuro Symptoms/Deficit Medical Decision Making Patient is hypertensive on arrival. Her NIH stroke scale is 1, likely due to baseline dementia because she does not know the day of the week or the month. All other findings neurologically are essentially negative. Serum work-up is normal to start. Urinalysis is negative. First troponin is normal. No acute ST changes. Second troponin was normal as well. It did not elevate. Head CT shows a possible new low-density right posterior limb internal capsule area. This appears old, there is no surrounding edema. It does not match her symptoms of left-sided headache, and she is not weak. Chest x-ray is negative. Her headache is significantly improved. With no neurological findings, she will be allowed discharge. Lab Data 01/26/23 05:45 01/26/23 05:[address] 01/26/23 05:22 IMPRESSION: Possible subtle new low-density in right posterior limb of internal capsule which could be further evaluated with MRI. Chest X-Ray 01/26/23 05:28 IMPRESSION: No acute finding. Laboratory Results WBC 6.2 10^3/uL (4.0-10.0) 01/26/23 05:45 RBC 4.63 10^6/uL (4.1-5.3) 01/26/23 05:45 Hgb 13.5 g/dL (11.5-15.3) 01/26/23 05:45 Hct 41.0 % (37.0-47.0) 01/26/23 05:45 MCV 88.6 fl (81-99) 01/26/23 05:45 MCH 29.2 pg (28.0-34.0) 01/26/23 05:45 MCHC 32.9 g/dL (30.0-36.0) 01/26/23 05:45 RDW 12.6 % (12.1-15.1) 01/26/23 05:45 Plt Count 260 10^3/cmm (130-400) 01/26/23 05:45 MPV 8.3 fL (7.4-10.4) 01/26/23 05:45 Neut % (Auto) 68.9 % 01/26/23 05:45 Lymph % (Auto) 18.4 % 01/26/23 05:45 Whitley % (Auto) 7.1 % 01/26/23 05:45 Eos % (Auto) 4.8 % 01/26/23 05:45 Baso % (Auto) 0.6 % 01/26/23 05:45 Neut # (Auto) 4.27 10^3/uL (1.8-7.7) 01/26/23 05:45 Lymph # (Auto) 1.1 10^3/uL (0.8-4.8) 01/26/23 05:45 Whitley # (Auto) 0.4 10^3/uL (0.2-0.9) 01/26/23 05:45 Eos # (Auto) 0.3 10^3/uL (0.0-0.8) 01/26/23 05:45 Baso # (Auto) 0.0 10^3/uL (0.0-0.1) 01/26/23 05:45 Nucleated RBC % (auto) 0 % 01/26/23 05:45 Nucleated RBCs # 0.0 /100WBC 01/26/23 05:45 PT 13.00 SECONDS (12.1-14.9) 01/26/23 05:45 INR 0.95 (0.8-1.2) 01/26/23 05:45 APTT 27.6 SECONDS (23.9-36.7) 01/26/23 05:45 Sodium 141 mmol/L (136-145) 01/26/23 05:45 Potassium 3.7 mmol/L (3.5-5.1) 01/26/23 05:45 Chloride 103 mmol/L (98-107) 01/26/23 05:45 Carbon Dioxide 27 mmol/L (22-29) 01/26/23 05:45 Anion Gap 14.7 (5-19) 01/26/23 05:45 BUN 6 mg/dL (8-23) L 01/26/23 05:45 Creatinine 0.5 mg/dL (0.5-0.9) 01/26/23 05:45 GFR Calculation Not Reportable 01/26/23 05:45 Glucose 187 mg/dL (65-115) H 01/26/23 05:45 Calculated Osmolality 295 mOsm/kg (285-295) 01/26/23 05:45 Calcium 9.2 mg/dL (8.5-10.5) 01/26/23 05:45 Magnesium 1.8 mg/dL (1.7-2.3) 01/26/23 05:45 Total Bilirubin 0.9 mg/dL (0.15-1.2) 01/26/23 05:45 AST 24 U/L (0-32) 01/26/23 05:45 ALT 35 U/L (0-33) H 01/26/23 05:45 Alkaline Phosphatase 135 U/L (35-105) H 01/26/23 05:45 Creatine Kinase 60 U/L (26-192) 01/26/23 05:45 Troponin T Baseline 8 ng/L (0-10) 01/26/23 05:45 Troponin T 120 Minute 6.00 ng/L (0-10) 01/26/23 07:26 Delta Troponin T -2 ABS# (0-10) L 01/26/23 07:26 Total Protein 6.5 g/dL (6.6-8.7) L 01/26/23 05:45 Albumin 4.0 g/dL (3.5-5.2) 01/26/23 05:45 Globulin 2.5 g/dL (1.3-4.6) 01/26/23 05:45 Urine Color Yellow (Yellow) 01/26/23 06:00 Urine Appearance Clear (CLEAR) 01/26/23 06:00 Urine pH 6 (5-7) 01/26/23 06:00 Ur Specific [place] 1.000 (1.005-1.030) L 01/26/23 06:00 Urine Protein Neg (Negative) 01/26/23 06:00 Urine Glucose (UA) Norm (Normal) 01/26/23 06:00 Urine Ketones Negative (Negative) 01/26/23 06:00 Urine Blood Neg (Negative) 01/26/23 06:00 Urine Nitrate Negative (Negative) 01/26/23 06:00 Urine Bilirubin Neg (Negative) 01/26/23 06:00 Urine Urobilinogen Norm mg/dL (Negative) 01/26/23 06:00 Ur Leukocyte Esterase Negative (Negative) 01/26/23 06:00 Discharge Plan Discharge Patient Disposition: Home Clinical Impression: Headache Prescriptions: No Action aspirin 325 mg tablet 325 mg PO QAM mecobalamin (vitamin B12) 1,000 mcg tablet,disintegrating 1,000 mcg SUBLINGUAL QAM (DME) FreeStyle Adriel 14 Day [place] Misc See Rx Instructions .ROUTE .MEDSUPPLY Qty: 1 0RF Rx Instructions: As directed lisinopril 40 mg tablet 40 mg PO QAM Qty: 90 1RF amlodipine 5 mg tablet 5 mg PO DAILY Qty: 30 5RF (DME) FreeStyle Adriel 14 Day Sensor Kit See Rx Instructions .ROUTE .MEDSUPPLY Qty: 2 5RF Rx Instructions: As directed albuterol sulfate [ProAir HFA] 90 mcg/actuation HFA aerosol inhaler 2 puff inhalation Q6H PRN (Reason: shortness of breath or wheezing) 30 Days Qty: 8.5 0RF glipizide 5 mg tablet 5 mg PO QAM Qty: 90 1RF rivastigmine 9.5 mg/24 hour patch 24 hour 1 patch topical DAILY@07 Qty: 30 3RF thiamine HCl (vitamin B1) [Vitamin B-1] 250 mg Tablet 250 mg PO QAM Ultra Ovid-3 500-1,000 mg Capsule 2 cap PO QAM iron fum-vit C-ascorbate sod 65 mg iron- 125 mg Tablet 1 tab PO QAM Ilia Liquid Force Multivitamin 2 cap PO QAM Centrum Women Gummies 2 tab PO QAM Discharge Orders: Discharge ED (Routine); Ordered 01/26/23 Ordered By: Keith Palomo Referrals: Amie Aaron DO [Primary Care Provider] - 1-3 days Patient Instructions: Acute Headache (ED) Activity Restrictions/Additional Instructions: Return for worsening head pain, trouble with speech or language, weakness, mental status changes, or other concerning symptoms. Follow-up with your doctor early this week. Coding Level of Care Code ED Environmental Emergencies Assistant for Talon Bernal
[2023-01-26 05:53] LABS: Basophils % 0.6 %; Eosinophils # 0.3 10^3/uL (0.0-0.8); Eosinophils % 4.8 %; Hemoglobin 13.5 g/dL (11.5-15.3); Lymphocytes # 1.1 10^3/uL (0.8-4.8); Lymphocytes % 18.4 %; Mean Corpuscular HGB Conc 32.9 g/dL (30.0-36.0); Mean Corpuscular Hemoglobin 29.2 pg (28.0-34.0); Mean Corpuscular Volume 88.6 fl (81-99); Mean Platelet Volume 8.3 fL (7.4-10.4); Monocytes # 0.4 10^3/uL (0.2-0.9); Monocytes % 7.1 %; Neutrophils # 4.27 10^3/uL (1.8-7.7); Neutrophils % 68.9 %; Nucleated Red Blood Cells % 0 %; Platelet Count 260 10^3/cmm (130-400); Red Blood Count 4.63 10^6/uL (4.1-5.3); Red Cell Distribution Width 12.6 % (12.1-15.1); White Blood Count 6.2 10^3/uL (4.0-10.0)
[2023-01-26 06:03] VITALS: BP 199/99; PULSE 67; RESP 14; O2SAT 97
[2023-01-26 06:03] LABS: INR 0.95 (0.8-1.2)
[2023-01-26 06:04] LABS: Partial Thromboplastin Time 27.6 SECONDS (23.9-36.7)
[2023-01-26 06:07] LABS: Add Urine Microscopic? NO; Charge for UA Resulting for Rev
[2023-01-26 06:08] LABS: Troponin(5th) Baseline 8 ng/L (0-10)
[2023-01-26 06:10] LABS: Alanine Aminotransferase 35 U/L (0-33); Alkaline Phosphatase 135 U/L (35-105); Anion Gap 14.7 (5-19); Aspartate Amino Transferase 24 U/L (0-32); Blood Urea Nitrogen 6 mg/dL (8-23); Calcium 9.2 mg/dL (8.5-10.5); Carbon Dioxide 27 mmol/L (22-29); Chloride 103 mmol/L (98-107); Creatine Phosphokinase 60 U/L (26-192); Globulin 2.5 g/dL (1.3-4.6); Glucose 187 mg/dL (65-115); Magnesium 1.8 mg/dL (1.7-2.3); Osmolality Calculated 295 mOsm/kg (285-295); Potassium 3.7 mmol/L (3.5-5.1); Sodium 141 mmol/L (136-145); Total Bilirubin 0.9 mg/dL (0.15-1.2); Total Protein 6.5 g/dL (6.6-8.7)
[2023-01-26 06:12] LABS: Bilirubin Urine Neg (Negative); Blood Urine Neg (Negative); Glucose Urine UA Norm (Normal); Ketones Urine Negative (Negative); Leukocyte Esterase Urine Negative (Negative); Nitrate Urine Negative (Negative); Protein Urine Neg (Negative); Urine Appearance Clear (CLEAR); Urine Color Yellow (Yellow); Urobilinogen Urine Norm (Negative); pH Urine 6 (5-7)
--- NOTE | 2023-01-26 08:02 | ECG_ITS ---
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 Measurements Intervals [place] Rate: 69 P: 58 FL: 148 QRS: 12 QRSD: 82 T: 28 QT: 388 QTc: 416 Interpretive Statements SINUS RHYTHM LOW QRS VOLTAGE IN PRECORDIAL LEADS [QRS DEFLECTION < 1.0 mV IN CHEST LEADS] Diffuse nonspecific T wave changes SEPTAL MYOCARDIAL INFARCTION , PROBABLY OLD [40+ ms Q WAVE IN V1/V2] Compared to ECG 01/26/2023 05:51:36 Myocardial infarct finding now present Electronically Signed On 01-26-2023 19:29:49 CDT by Garret Redding M.D. [id number]
[2023-01-26 08:22] LABS: Troponin 5 2HR Delta -2 ABS# (0-10)
[2023-01-27 17:03] LABS: Glucose Point of Care 179 mg/dL (70-110)
== END 2023-01-26 10:26 | disposition home or self-care (01) ==
PROVIDERS: Emergency Provider Emergency Medicine; PCP Family Medicine
DX: R51.9 Headache, unspecified (principal); Z79.82 Long term (current) use of aspirin; Z79.84 Long term (current) use of oral hypoglycemic drugs; J44.9 Chronic obstructive pulmonary disease, unspecified; I10 Essential (primary) hypertension; E11.9 Type 2 diabetes mellitus without complications; Z86.73 Personal history of transient ischemic attack (TIA), and cerebral infarction without residual deficits
CPT/HCPCS: 36416; 70450; 71045; 80053; 81003; 82550; 82962; 83735; 84484; 85025; 85610; 85730; 93005; 99285

== ENCOUNTER → 2023-03-04 11:21 | Outpatient (BNVA) | payer MEDICARE, BC, SELFPAY | PROVIDERS: PCP Family Medicine; Visit Provider Specialist | DX: R94.31 Abnormal electrocardiogram [ECG] [EKG] (principal); R55 Syncope and collapse; I10 Essential (primary) hypertension | CPT/HCPCS: 99214 ==

== ENCOUNTER → 2023-03-29 10:22 | Outpatient (BNVA) | payer MEDICARE, BC, SELFPAY | PROVIDERS: PCP Family Medicine; Visit Provider Specialist | DX: G30.9 Alzheimer's disease, unspecified (principal); F02.80 Dementia in other diseases classified elsewhere, unspecified severity, without behavioral disturbance, psychotic disturbance, mood disturbance, and anxiety | CPT/HCPCS: 99213 ==

== ENCOUNTER → 2023-04-22 14:06 | Outpatient (BNVA) | payer MEDICARE, BC, SELFPAY | PROVIDERS: PCP Family Medicine; Visit Provider Family Medicine | DX: E11.9 Type 2 diabetes mellitus without complications (principal) | CPT/HCPCS: 80053; 83036 ==

== ENCOUNTER → 2023-05-14 14:05 | Outpatient (BNVA) | payer MEDICARE, BC, SELFPAY | PROVIDERS: PCP Family Medicine; Visit Provider Specialist | DX: G30.9 Alzheimer's disease, unspecified (principal); F02.80 Dementia in other diseases classified elsewhere, unspecified severity, without behavioral disturbance, psychotic disturbance, mood disturbance, and anxiety | CPT/HCPCS: 99213 ==

== ENCOUNTER 2023-06-28 11:37 | Emergency (ER) | payer MEDICARE, BC, SELFPAY ==
[2023-06-28 11:53] VITALS: BP 188/80; PULSE 63; RESP 17; TEMP 36.7; O2SAT 95; BMI 34.0
--- NOTE | 2023-06-28 12:04 | ECG_ITS ---
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 Measurements Intervals [place] Rate: 66 P: 40 [place]: 147 QRS: -4 QRSD: 67 T: 29 QT: 401 QTc: 422 Interpretive Statements SINUS RHYTHM LOW QRS VOLTAGE IN PRECORDIAL LEADS [QRS DEFLECTION < 1.0 mV IN CHEST LEADS] MODERATE VOLTAGE CRITERIA FOR LVH, CONSIDER NORMAL VARIANT [MEETS CRITERIA IN ONE OF: R(aVL), S(V1), R(V5), R(V5/V6)+S(V1)] POSSIBLE ANTERIOR MYOCARDIAL INFARCTION , PROBABLY OLD [30 ms Q WAVE IN V3/V4, OR R < 0.2 mV IN V4] Compared to ECG 01/26/2023 08:02:22 T-wave abnormality no longer present Myocardial infarct finding still present Electronically Signed On 06-28-2023 14:50:32 CDT by Cheyanne Jessica M.D. [id number]
--- NOTE | 2023-06-28 12:04 | XR_ITS ---
WS: [id number] Portable AP upright chest, 06/28/2023 Clinical Data: chest pain Comparison: Portable chest, 01/26/2023 Findings: No nodules, masses or effusions are seen. The heart is normal. The pulmonary vascularity is not increased. No pneumonia or pneumothorax is seen. The aortic arch and descending thoracic aorta s how minimal calcification and tortuosity. Impression: Atherosclerosis.
[2023-06-28 12:20] LABS: Basophils # 0.1 10^3/uL (0.0-0.1); Basophils % 1.1 %; Eosinophils # 0.2 10^3/uL (0.0-0.8); Eosinophils % 3.6 %; Hematocrit 39.1 % (36-47); Lymphocytes # 1.4 10^3/uL (0.8-4.8); Lymphocytes % 29.2 %; Mean Corpuscular HGB Conc 33.8 g/dL (30-55); Mean Corpuscular Hemoglobin 29.7 pg (27-33); Mean Corpuscular Volume 87.9 fl (85-98); Mean Platelet Volume 8.2 fL (7.4-10.4); Monocytes # 0.4 10^3/uL (0.2-0.9); Monocytes % 9.3 %; Neutrophils # 2.68 10^3/uL (1.8-7.7); Neutrophils % 56.6 %; Nucleated Red Blood Cells % 0 %; Platelet Count 218 10^3/cmm (157-399); Red Blood Count 4.45 10^6/uL (3.85-5.65); Red Cell Distribution Width 12.8 % (12.1-15.1); White Blood Count 4.73 10^3/uL (3.29-11.43)
[2023-06-28 12:45] LABS: Alanine Aminotransferase 22 U/L (0-33); Albumin Level 4.6 g/dL (3.5-5.2); Alkaline Phosphatase 121 U/L (35-105); Anion Gap 14.6 (5-19); Aspartate Amino Transferase 25 U/L (0-32); Blood Urea Nitrogen 6 mg/dL (8-23); Calcium 9.4 mg/dL (8.5-10.5); Carbon Dioxide 27 mmol/L (22-29); Chloride 104 mmol/L (98-107); Globulin 1.9 g/dL (1.3-4.6); Glucose 160 mg/dL (65-115); Osmolality Calculated 295 mOsm/kg (285-295); Potassium 3.6 mmol/L (3.5-5.1); Sodium 142 mmol/L (136-145); Total Bilirubin 1.1 mg/dL (0.15-1.2); Total Protein 6.5 g/dL (6.6-8.7)
[2023-06-28 12:50] LABS: Troponin(5th) Baseline 7 ng/L (0-10)
[2023-06-28] MEDS: aspirin 81 mg Chew Tablet 324 MG PO (13:07)
--- NOTE | 2023-06-28 13:39 | ED_ITS ---
HPI - Chest Pain General: Chief Complaint: Chest Pain Stated Complaint: Chest Pain Time Seen by Provider: 06/28/23 12:04 History of Present Illness: 73-year-old female with complex medical history including diabetes, COPD, hypertension, TIA and hyperlipidemia presents emergency room with chest pain. Patient further reveals that she had a chest pain around 4:00 that lasted about 2 to 3 minutes. Described the pain as left-sided chest pain that radiated to her shoulder. Presents emergency room, patient has any chest pain, shortness of breath, cough, coughing up blood or vomiting blood. He was reading a book and no signs of acute distress. Associated symptoms: Deny dyspnea or palpitations Review of Systems General: Reports: 10 or more systems reviewed and unremarkable except in HPI and below Card: Reports: chest pain (Currently pain-free); Denies: palpitations, irregular heart rhythm, edema or swelling of feet/ankles Resp: Denies: dyspnea, non-productive cough, wheezing, stridor, pain on inspiration, change in phlegm color, hemoptysis or chest congestion Musc: Denies: neck pain, back pain, extremity pain, extremity swelling, joint pain or joint swelling PFS ED PFSH: Medical History (Updated 06/28/23 @ 15:23 by Jose Fajardo MD) Anemia Cognitive impairment COPD (chronic obstructive pulmonary disease) Enrolled in chronic care management Essential (primary) hypertension Hypertriglyceridemia Microcytic anemia Seasonal allergies Stomatitis and mucositis, unspecified TIA (transient ischemic attack) Type 2 diabetes mellitus, without long-term current use of insulin Surgical History H/O section H/O lithotripsy S/P appendectomy S/P cholecystectomy S/P gastric bypass S/P hernia repair S/P nasal surgery S/P tonsillectomy and adenoidectomy S/P tubal ligation Family History Father CAD (coronary artery disease) Mother Parkinson disease Stroke Dementia Family/Other Cancer Sister Dementia Other Hypertension Denies family history of Diabetes Clotting disorder Chronic kidney disease (CKD) Suicide Anesthesia complication Bleeding disorder Lung disease Social History Smoking and tobacco/nicotine status: never used tobacco/nicotine Alcohol intake: never Substance/Drug Use: never Marital status: Current occupational status: retired Female Reproductive History: Para: 3 Spontaneous abortions: Yes Physical Exam Const: COMMON NORMALS: no acute distress, average body habitus, patient oriented x3, no limitations, healthy appearing, alert and well nourished Neck/C-Spine: COMMON NORMALS: full ROM, no lymphadenopathy, supple, no meningeal signs, no JVD, Thyroid normal and No carotid bruits THYROID: Thyroid normal Chest: COMMONS NORMALS: normal inspection of the chest, normal palpation of entire chest wall, normal inspection of the breasts and normal palpation of the breasts Breast/axilla inspection: Yes normal inspection of the breasts BREAST/AXILLA PALPATION: Yes normal palpation of the breasts Resp: COMMON NORMALS: normal respiratory effort, No retractions, No use of accessory muscles, clear to auscultation bilaterally and percussion normal AUSCULTATION: clear to auscultation bilaterally PERCUSSION: percussion normal Cardio: COMMON NORMALS: no JVD GI: COMMON NORMALS: Normal to inspection, nondistended, normoactive bowel sounds present, Soft to palpation, non-tender, No hepatosplenomegaly present, no masses and no bruits PALPATION: Yes Soft to palpation and Yes No hepatosplenomegaly present : COMMON NORMALS: Yes no CVA tenderness BLADDER/KIDNEY EXAM: Yes no CVA tenderness Back/Pelvis: COMMON NORMALS: no CVA tenderness, thoracic and lumbar spine normal to inspection, no thoracic nor lumbar tenderness, thoraco-lumbar ROM normal and straight leg raise negative bilaterally Extremity: COMMON NORMALS: normal to inspection, full ROM, capillary refill normal, no joint enlargement, no clubbing, cyanosis or edema, no calf tenderness and no pedal edema Neuro: COMMON NORMALS: patient oriented x3 SENSORIUM/ORIENTATION: Yes alert MENINGEAL SIGNS: Yes no meningeal signs Course Vital Signs: Vital signs: Vital Signs Temperature 98.1 F 06/28/23 11:53 Pulse Rate 60 06/28/23 15:08 Respiratory Rate 16 06/28/23 15:08 Blood Pressure 171/93 06/28/23 15:08 Pulse Oximetry 97 06/28/23 15:08 Oxygen Delivery Me thod Room Air 06/28/23 14:30 MDM - Chest Pain Medical Decision Making Patient made comfortable emergency room. Patient extensive work-up including CBC, CMP, troponin x2. EKG was done. I was able to review past medical history including EKG. Patient be discharged home with close follow-up PCP for further evaluation and treatment. Differential Diagnosis Likely acute massive pulmonary embolism, acute respiratory failure, cardiac arrest and sudden cardiac Lab Data 06/28/23 12:14 06/28/23 12:14 Laboratory Results WBC 4.73 10^3/uL (3.29-11.43) 06/28/23 12:14 RBC 4.45 10^6/uL (3.85-5.65) 06/28/23 12:14 Hgb 13.20 g/dL (11.27-16.99) 06/28/23 12:14 Hct 39.1 % (36-47) 06/28/23 12:14 MCV 87.9 fl (85-98) 06/28/23 12:14 MCH 29.7 pg (27-33) 06/28/23 12:14 MCHC 33.8 g/dL (30-55) 06/28/23 12:14 RDW 12.8 % (12.1-15.1) 06/28/23 12:14 Plt Count 218 10^3/cmm (157-399) 06/28/23 12:14 MPV 8.2 fL (7.4-10.4) 06/28/23 12:14 Neut % (Auto) 56.6 % 06/28/23 12:14 Lymph % (Auto) 29.2 % 06/28/23 12:14 [place] % (Auto) 9.3 % 06/28/23 12:14 Eos % (Auto) 3.6 % 06/28/23 12:14 Baso % (Auto) 1.1 % 06/28/23 12:14 Neut # (Auto) 2.68 10^3/uL (1.8-7.7) 06/28/23 12:14 Lymph # (Auto) 1.4 10^3/uL (0.8-4.8) 06/28/23 12:14 [place] # (Auto) 0.4 10^3/uL (0.2-0.9) 06/28/23 12:14 Eos # (Auto) 0.2 10^3/uL (0.0-0.8) 06/28/23 12:14 Baso # (Auto) 0.1 10^3/uL (0.0-0.1) 06/28/23 12:14 Nucleated RBC % (auto) 0 % 06/28/23 12:14 Nucleated RBCs # 0.0 /100WBC 06/28/23 12:14 Sodium 142 mmol/L (136-145) 06/28/23 12:14 Potassium 3.6 mmol/L (3.5-5.1) 06/28/23 12:14 Chloride 104 mmol/L (98-107) 06/28/23 12:14 Carbon Dioxide 27 mmol/L (22-29) 06/28/23 12:14 Anion Gap 14.6 (5-19) 06/28/23 12:14 BUN 6 mg/dL (8-23) L 06/28/23 12:14 Creatinine 0.5 mg/dL (0.5-0.9) 06/28/23 12:14 GFR Calculation Not Reportable 06/28/23 12:14 Glucose 160 mg/dL (65-115) H 06/28/23 12:14 Calculated Osmolality 295 mOsm/kg (285-295) 06/28/23 12:14 Calcium 9.4 mg/dL (8.5-10.5) 06/28/23 12:14 Total Bilirubin 1.1 mg/dL (0.15-1.2) 06/28/23 12:14 AST 25 U/L (0-32) 06/28/23 12:14 ALT 22 U/L (0-33) 06/28/23 12:14 Alkaline Phosphatase 121 U/L (35-105) H 06/28/23 12:14 Troponin T Baseline 7 ng/L (0-10) 06/28/23 12:14 Troponin T 120 Minute 6.22 ng/L (0-10) 06/28/23 14:07 Delta Troponin T -0.78 ABS# (0-10) L 06/28/23 14:07 Total Protein 6.5 g/dL (6.6-8.7) L 06/28/23 12:14 Albumin 4.6 g/dL (3.5-5.2) 06/28/23 12:14 Globulin 1.9 g/dL (1.3-4.6) 06/28/23 12:14 XR interpretation done by ED provider, pending radiology final review EKG Data EKG 1: Interpretation: Sinus rhythm rate of [address] changes. Some nonspecific ST show changes. [place] interval is 147 QT 4 1. Discharge Plan Discharge Patient Disposition: Home Clinical Impression: Chest pain Condition: Stable Prescriptions: No Action aspirin 325 mg tablet 325 mg PO QAM mecobalamin (vitamin B12) 1,000 mcg tablet,disintegrating 1,000 mcg SUBLINGUAL QAM rivastigmine 9.5 mg/24 hour patch 24 hour 1 patch topical DAILY@07 Qty: 90 3RF lisinopril 40 mg tablet 40 mg PO QAM Qty: 90 1RF Multi-Vitamins Tablet 1 tab PO QAM amlodipine 5 mg tablet 5 mg PO QAM glipizide 5 mg tablet extended release 24hr 5 mg PO QAM thiamine HCl (vitamin B1) [Vitamin B-1] 250 mg Tablet 250 mg PO QAM Ultra Collins-3 500-1,000 mg Capsule 2 cap PO QAM Discharge Orders: Discharge ED (Routine); Ordered 06/28/23 Ordered By: Jose Fajardo Referrals: Amie Aaron DO [Primary Care Provider] - Discharge Diet: Advance as tolerated Discharge Activity: Resume usual activity Patient Instructions: Opioid Safety, Pain Management Coding Level of Care Code ED Hematologist Oncologist for Talon Bernal
[2023-06-28 13:54] VITALS: BP 149/90; PULSE 56; RESP 16; O2SAT 92
[2023-06-28 14:30] VITALS: BP 167/75; PULSE 58; RESP 16; O2SAT 97
[2023-06-28 14:41] LABS: Troponin 5 2HR 6.22 ng/L (0-10); Troponin 5 2HR Delta -0.78 ABS# (0-10)
[2023-06-28 15:08] VITALS: BP 171/93; PULSE 60; RESP 16; O2SAT 97
[2023-06-28 16:36] VITALS: BP 171/93; PULSE 60; RESP 16; TEMP 36.7; O2SAT 97
== END 2023-06-28 16:37 | disposition home or self-care (01) ==
PROVIDERS: Emergency Provider Family Medicine; PCP Family Medicine
DX: R07.9 Chest pain, unspecified (principal); Z79.82 Long term (current) use of aspirin; Z79.84 Long term (current) use of oral hypoglycemic drugs; J44.9 Chronic obstructive pulmonary disease, unspecified; I10 Essential (primary) hypertension; E11.9 Type 2 diabetes mellitus without complications; Z86.73 Personal history of transient ischemic attack (TIA), and cerebral infarction without residual deficits
CPT/HCPCS: 36415; 71045; 80053; 84484; 85025; 93005; 99285

== ENCOUNTER 2023-07-19 16:07 | Emergency (ER) | payer MEDICARE, BC, SELFPAY ==
[2023-07-19 16:20] VITALS: BP 148/66; PULSE 96; RESP 18; TEMP 38.1; O2SAT 96; BMI 21.6
--- NOTE | 2023-07-19 16:20 | ECG_ITS ---
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 Measurements Intervals [place] Rate: 95 P: 43 [place]: 141 QRS: 4 QRSD: 77 T: 9 QT: 336 QTc: 424 Interpretive Statements SINUS RHYTHM MINIMAL VOLTAGE CRITERIA FOR LVH, CONSIDER NORMAL VARIANT [MEETS CRITERIA IN ONE OF: R(aVL), S(V1), R(V5), R(V5/V6)+S(V1)] NONSPECIFIC T-WAVE ABNORMALITY Compared to ECG 06/28/2023 11:57:31 T-wave abnormality now present Myocardial infarct finding no longer present Electronically Signed On 07-19-2023 19:36:49 CDT by Ron Ochoa M.D. [id number] f
--- NOTE | 2023-07-19 16:27 | XRR_ITS ---
PROCEDURE INFORMATION: Exam: XR Chest Exam date and time: 07/19/2023 4:59 PM Age: 73 years old Clinical indication: Pain; Chest pressure; Additional info: Chest pain TECHNIQUE: Imaging protocol: Radiologic exam of the chest. Views: 1 view. COMPARISON: CR XR chest 1V portable [id number] 06/28/2023 12:41 PM FINDINGS: Lungs: No consolidative pulmonary infiltrates are noted. Pleural spaces: No pleural effusion. No pneumothorax. Heart/Mediastinum: No cardiomegaly. Vasculature: The thoracic aorta is atherosclerotic. Bones/joints: Degenerative thoracic spine changes are noted. XR/XR chest 1V portable [id number] IMPRESSION: No acute abnormality demonstrated.
--- NOTE | 2023-07-19 16:27 | ED_ITS ---
HPI - Chest Pain General: Chief Complaint: Chest Pain Stated Complaint: chest pain Time Seen by Provider: 07/19/23 16:19 History of Present Illness: 73-year-old female presents emerged department via EMS with complaints of left anterior chest wall pain. She states that her called EMS because he was concerned about her chest pain. She is a very poor historian given her history of Alzheimer's. She states that she does have left chest pain and points to the left side of her chest but states it does not go anywhere. She states she is not short of breath dizzy or lightheaded. She denies nausea or vomiting. She states she is unsure when the chest pain started and states that her would be a better person to talk to to obtain information. At present it does n ot appear that the patient's is available to answer questions for the patient. I did review the patient's previous medical records and it does appear that she was recently seen on 07/12/2023 for muscle spasms in her neck. Review of Systems General: Reports: ROS unobtainable due to mental status PFS ED PFSH: Medical History (Updated 07/19/23 @ 19:30 by Roberto Blackman MD) Anemia Cognitive impairment COPD (chronic obstructive pulmonary disease) Enrolled in chronic care management Essential (primary) hypertension Hypertriglyceridemia Microcytic anemia Seasonal allergies Stomatitis and mucositis, unspecified TIA (transient ischemic attack) Type 2 diabetes mellitus, without long-term current use of insulin Surgical History H/O section H/O lithotripsy S/P appendectomy S/P cholecystectomy S/P gastric bypass S/P hernia repair S/P nasal surgery S/P tonsillectomy and adenoidectomy S/P tubal ligation Family History Father CAD (coronary artery disease) Mother Parkinson disease Stroke Dementia Family/Other Cancer Sister Dementia Other Hypertension Denies family history of Diabetes Clotting disorder Chronic kidney disease (CKD) Suicide Anesthesia complication Bleeding disorder Lung disease Social History Smoking and tobacco/nicotine status: never used tobacco/nicotine Alcohol intake: never Substance/Drug Use: never Marital status: Current occupational status: retired Female Reproductive History: Para: 3 Spontaneous abortions: Yes Physical Exam Narrative: EXAM NARRATIVE: Constitutional: the patient appeared well nourished and normally developed. Vital signs as documented. HENMT: Head exam is unremarkable. Neck is without jugular venous distension, thyromegaly, or carotid bruits. Carotid upstrokes are brisk bilaterally. Eye: No scleral icterus or corneal arcus noted Resp: Lungs are clear to auscultation and percussion. Cardio: Cardiac exam reveals the PMI to be normally sized and situated. Rhythm is regular. First and second heart sounds normal. No murmurs, rubs or gallops. GI: Abdominal exam reveals normal bowel sounds, no masses, no organomegaly and no aortic enlargement. Soft, nontender to palpation. No obvious palpable masses noted. No hepatomegaly appreciated. Extremity: Extremities are non-edematous and both femoral and pedal pulses are normal. Moves all extremities well, she has sensation in all extremities. Neuro: Alert and oriented x3, person, place and situation. Cranial nerves II through XII are grossly intact, there is no focal neurological deficits that I can appreciate at present. Motor strength in the upper and lower extremities are equal and bilateral 5/5. Psych: Cooperative, calm, normal thought process, appropriate judgment. Skin: No lesions, rashes. Course Vital Signs: Vital signs: Vital Signs Temperature 100.5 F H 07/19/23 16:20 Pulse Rate 91 07/19/23 18:30 Respiratory Rate 15 07/19/23 17:24 Blood Pressure 150/58 07/19/23 18:30 Pulse Oximetry 99 07/19/23 18:30 Oxygen Delivery Me thod Room Air 07/19/23 17:24 MDM - Chest Pain Medical Decision Making Physical exam completed and documented, I will obtain a twelve-lead EKG as well as a chest x-ray and cardiac enzymes, CBC and CMP to evaluate the patient's complaints of chest discomfort. I have reviewed the patient's previous medical record it does appear that she has been seen by purler on 06/28/2023. Medical Records I reviewed the patient's medical records. Lab Data I reviewed the patient's lab results. 07/19/23 15:00 07/19/23 15:00 Radiology Impressions Chest X-Ray 07/19/23 16:27 IMPRESSION: No acute abnormality demonstrated. Laboratory Results WBC 9.55 10^3/uL (3.29-11.43) 07/19/23 15:00 RBC 4.33 10^6/uL (3.85-5.65) 07/19/23 15:00 Hgb 12.20 g/dL (11.27-16.99) 07/19/23 15:00 Hct 37.4 % (36-47) 07/19/23 15:00 MCV 86.4 fl (85-98) 07/19/23 15:00 MCH 28.2 pg (27-33) 07/19/23 15:00 MCHC 32.6 g/dL (30-55) 07/19/23 15:00 RDW 11.9 % (12.1-15.1) L 07/19/23 15:00 Plt Count 324 10^3/cmm (157-399) 07/19/23 15:00 MPV 8.6 fL (7.4-10.4) 07/19/23 15:00 Neut % (Auto) 78.6 % 07/19/23 15:00 Lymph % (Auto) 11.5 % 07/19/23 15:00 Kidder % (Auto) 8.6 % 07/19/23 15:00 Eos % (Auto) 0.5 % 07/19/23 15:00 Baso % (Auto) 0.6 % 07/19/23 15:00 Neut # (Auto) 7.50 10^3/uL (1.8-7.7) 07/19/23 15:00 Lymph # (Auto) 1.1 10^3/uL (0.8-4.8) 07/19/23 15:00 Kidder # (Auto) 0.8 10^3/uL (0.2-0.9) 07/19/23 15:00 Eos # (Auto) 0.1 10^3/uL (0.0-0.8) 07/19/23 15:00 Baso # (Auto) 0.1 10^3/uL (0.0-0.1) 07/19/23 15:00 Nucleated RBC % (auto) 0 % 07/19/23 15:00 Nucleated RBCs # 0.0 /100WBC 07/19/23 15:00 PT 14.90 SECONDS (12.1-14.9) 07/19/23 16:42 INR 1.13 (0.8-1.2) 07/19/23 16:42 Sodium 131 mmol/L (136-145) L 07/19/23 15:00 Potassium 3.4 mmol/L (3.5-5.1) L 07/19/23 15:00 Chloride 94 mmol/L (98-107) L 07/19/23 15:00 Carbon Dioxide 25 mmol/L (22-29) 07/19/23 15:00 Anion Gap 15.4 (5-19) 07/19/23 15:00 BUN 6 mg/dL (8-23) L 07/19/23 15:00 Creatinine 0.5 mg/dL (0.5-0.9) 07/19/23 15:00 GFR Calculation Not Reportable 07/19/23 15:00 Glucose 181 mg/dL (65-115) H 07/19/23 15:00 Calculated Osmolality 274 mOsm/kg (285-295) L 07/19/23 15:00 Calcium 9.3 mg/dL (8.5-10.5) 07/19/23 15:00 Total Bilirubin 0.9 mg/dL (0.15-1.2) 07/19/23 15:00 AST 20 U/L (0-32) 07/19/23 15:00 ALT 16 U/L (0-33) 07/19/23 15:00 Alkaline Phosphatase 129 U/L (35-105) H 07/19/23 15:00 Troponin T Baseline 12 ng/L (0-10) H 07/19/23 15:00 Troponin T 120 Minute 14.30 ng/L (0-10) H 07/19/23 16:42 Delta Troponin T 2.30 ABS# (0-10) 07/19/23 16:42 NT-Pro-B Natriuret Pep 221 pg/mL (0-125) H 07/19/23 15:00 Total Protein 7.4 g/dL (6.6-8.7) 07/19/23 15:00 Albumin 3.7 g/dL (3.5-5.2) 07/19/23 15:00 Globulin 3.7 g/dL (1.3-4.6) 07/19/23 15:00 Urine Color Yellow (Yellow) 07/19/23 16:42 Urine Appearance Clear (CLEAR) 07/19/23 16:42 Urine pH 5 (5-7) 07/19/23 16:42 Ur Specific Merritt 1.005 (1.005-1.030) 07/19/23 16:42 Urine Protein Trace (Negative) 07/19/23 16:42 Urine Glucose (UA) Norm (Normal) 07/19/23 16:42 Urine Ketones 2+ (Negative) H 07/19/23 16:42 Urine Blood Neg (Negative) 07/19/23 16:42 Urine Nitrate Negative (Negative) 07/19/23 16:42 Urine Bilirubin Neg (Negative) 07/19/23 16:42 Urine Urobilinogen Norm mg/dL (Negative) 07/19/23 16:42 Ur Leukocyte Esterase Negative (Negative) 07/19/23 16:42 Urine RBC 0-4 /hpf (0-2) H 07/19/23 16:42 Urine WBC 0-4 /hpf (0-5) H 07/19/23 16:42 Ur Squamous Epith Cells 0-4 /hpf (0-5) H 07/19/23 16:42 Amorphous Sediment Not Reportable 07/19/23 16:42 Urine Bacteria Trace /hpf (NONE) 07/19/23 16:42 Urine Mucus 3+ /hpf 07/19/23 16:42 All radiology interpretation(s) finalized by discharge ED provider radiology interpretation(s): FINDINGS: Lungs: No consolidative pulmonary infiltrates are noted. Pleural spaces: No pleural effusion. No pneumothorax. Heart/Mediastinum: No cardiomegaly. Vasculature: The thoracic aorta is atherosclerotic. Bones/joints: Degenerative thoracic spine changes are noted. XR/XR chest 1V portable [id number] IMPRESSION: No acute abnormality demonstrated. ? Discharge Plan Discharge Patient Disposition: Home Clinical Impression: Atypical chest pain Condition: Stable Prescriptions: No Action aspirin 325 mg tablet 325 mg PO QAM mecobalamin (vitamin B12) 1,000 mcg tablet,disintegrating 1,000 mcg SUBLINGUAL QAM rivastigmine 9.5 mg/24 hour patch 24 hour 1 patch topical DAILY@07 Qty: 90 3RF lisinopril 40 mg tablet 40 mg PO QAM Qty: 90 1RF multivitamin [Multi-Vitamins] Tablet 1 tab PO QAM amlodipine 5 mg tablet 5 mg PO QAM thiamine HCl (vitamin B1) [Vitamin B-1] 250 mg Tablet 250 mg PO QAM Ultra [place]-3 500-1,000 mg Capsule 2 cap PO QAM glipizide 5 mg tablet extended release 24hr 5 mg PO DAILY Discharge Orders: Discharge ED (Routine); Ordered 07/19/23 Ordered By: Roberto Blackman Referrals: Amie Aaron DO [Primary Care Provider] - Discharge Diet: Advance as tolerated Discharge Activity: Resume usual activity Patient Instructions: Opioid Safety, Pain Management Activity Restrictions/Additional Instructions: Activity Restrictions/Additional Instructions: Thank you for choosing [facility] for your healthcare needs today. Please realize that you were seen in the Emergency Department and that we are providing you with an emergency medical screening exam and this may not be complete and all inclusive of all the testing and or medical work-up that you may need to determine your ailment or severity of your illness. It is very important that you follow-up as instructed with your Primary care provider or Specialist for additional evaluation and to discuss your medical treatment plan. You may return to the Emergency Department should you have concerns or if your condition changes or worsens in any way. Coding Level of Care Code ED Oracle Bpm Developer for Talon Bernal
[2023-07-19 16:41] LABS: Basophils # 0.1 10^3/uL (0.0-0.1); Basophils % 0.6 %; Eosinophils # 0.1 10^3/uL (0.0-0.8); Eosinophils % 0.5 %; Hematocrit 37.4 % (36-47); Lymphocytes # 1.1 10^3/uL (0.8-4.8); Lymphocytes % 11.5 %; Mean Corpuscular HGB Conc 32.6 g/dL (30-55); Mean Corpuscular Hemoglobin 28.2 pg (27-33); Mean Corpuscular Volume 86.4 fl (85-98); Mean Platelet Volume 8.6 fL (7.4-10.4); Monocytes # 0.8 10^3/uL (0.2-0.9); Monocytes % 8.6 %; Neutrophils % 78.6 %; Nucleated Red Blood Cells % 0 %; Platelet Count 324 10^3/cmm (157-399); Red Blood Count 4.33 10^6/uL (3.85-5.65); Red Cell Distribution Width 11.9 % (12.1-15.1); White Blood Count 9.55 10^3/uL (3.29-11.43)
[2023-07-19] MEDS: aspirin 81 mg Chew Tablet 324 MG PO (16:55)
[2023-07-19 16:58] LABS: Troponin(5th) Baseline 12 ng/L (0-10)
[2023-07-19 17:06] LABS: Alanine Aminotransferase 16 U/L (0-33); Albumin Level 3.7 g/dL (3.5-5.2); Alkaline Phosphatase 129 U/L (35-105); Anion Gap 15.4 (5-19); Aspartate Amino Transferase 20 U/L (0-32); Blood Urea Nitrogen 6 mg/dL (8-23); Calcium 9.3 mg/dL (8.5-10.5); Carbon Dioxide 25 mmol/L (22-29); Chloride 94 mmol/L (98-107); Globulin 3.7 g/dL (1.3-4.6); Glucose 181 mg/dL (65-115); NT Pro B Type Natriuretic Pept 221 pg/mL (0-125); Osmolality Calculated 274 mOsm/kg (285-295); Potassium 3.4 mmol/L (3.5-5.1); Sodium 131 mmol/L (136-145); Total Bilirubin 0.9 mg/dL (0.15-1.2); Total Protein 7.4 g/dL (6.6-8.7)
[2023-07-19 17:19] LABS: INR 1.13 (0.8-1.2)
[2023-07-19 17:22] LABS: Add Urine Culture? No; Add Urine Microscopic? YES; Bacteria Urine TRACE /hpf; Bilirubin Urine Neg (Negative); Blood Urine Neg (Negative); Glucose Urine UA Norm (Normal); Ketones Urine 2+ (Negative); Leukocyte Esterase Urine Negative (Negative); Mucus Urine 3+ /hpf; Nitrate Urine Negative (Negative); Protein Urine Trace (Negative); RBC Urine 0-4 /hpf (0-2); Specific Gravity, Urine 1.005 (1.005-1.030); Squamous Epithelial Cell Urine 0-4 /hpf (0-5); Urine Appearance Clear (CLEAR); Urine Color Yellow (Yellow); Urobilinogen Urine Norm (Negative); WBC Urine 0-4 /hpf (0-5); pH Urine 5 (5-7)
[2023-07-19 17:24] VITALS: BP 147/76; PULSE 88; RESP 15; O2SAT 94; O2SAT 96
--- NOTE | 2023-07-19 18:23 | ECG_ITS ---
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 Measurements Intervals [place] Rate: 81 P: 24 MS: 135 QRS: -4 QRSD: 77 T: -13 QT: 345 QTc: 402 Interpretive Statements SINUS RHYTHM MODERATE VOLTAGE CRITERIA FOR LVH, CONSIDER NORMAL VARIANT [MEETS CRITERIA IN ONE OF: R(aVL), S(V1), R(V5), R(V5/V6)+S(V1)] NONSPECIFIC T-WAVE ABNORMALITY Compared to ECG 07/19/2023 16:20:43 No significant changes Electronically Signed On 07-19-2023 19:39:32 CDT by Ron Ochoa M.D. [id number]
[2023-07-19 18:30] VITALS: BP 150/58; PULSE 91; O2SAT 99
== END 2023-07-19 19:43 | disposition home or self-care (01) ==
PROVIDERS: Emergency Provider Internal Medicine; PCP Family Medicine
DX: R07.89 Other chest pain (principal); Z79.82 Long term (current) use of aspirin; Z79.84 Long term (current) use of oral hypoglycemic drugs; J44.9 Chronic obstructive pulmonary disease, unspecified; I10 Essential (primary) hypertension; Z86.73 Personal history of transient ischemic attack (TIA), and cerebral infarction without residual deficits; E11.9 Type 2 diabetes mellitus without complications
CPT/HCPCS: 71045; 80053; 81001; 83880; 84484; 85025; 85610; 93005; 99285

== ENCOUNTER → 2023-08-28 13:58 | Outpatient (BNVA) | payer MEDICARE, BC, SELFPAY | PROVIDERS: PCP Family Medicine; Visit Provider Internal Medicine Cardiovascular Disease | DX: R94.31 Abnormal electrocardiogram [ECG] [EKG] (principal); I11.0 Hypertensive heart disease with heart failure; I50.9 Heart failure, unspecified; E78.1 Pure hyperglyceridemia; E11.9 Type 2 diabetes mellitus without complications; Z79.84 Long term (current) use of oral hypoglycemic drugs; R55 Syncope and collapse | CPT/HCPCS: 99214 ==

== ENCOUNTER 2023-11-06 06:57 | Emergency (ER) | payer MEDICARE, BC, SELFPAY ==
--- NOTE | 2023-11-06 07:05 | ECG_ITS ---
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 Measurements Intervals [place] Rate: 71 P: 27 MN: 146 QRS: 1 QRSD: 85 T: 32 QT: 365 QTc: 398 Interpretive Statements SINUS RHYTHM MODERATE VOLTAGE CRITERIA FOR LVH, CONSIDER NORMAL VARIANT [MEETS CRITERIA IN ONE OF: R(aVL), S(V1), R(V5), R(V5/V6)+S(V1)] POSSIBLE ANTERIOR MYOCARDIAL INFARCTION , PROBABLY OLD [30 ms Q WAVE IN V3/V4, OR R < 0.2 mV IN V4] Nonspecific T wave changes Compared to ECG 07/19/2023 18:23:15 Myocardial infarct finding now present T-wave abnormality no longer present Electronically Signed On 11-07-2023 10:46:45 POWER SWITCHBOARD OPERATOR by Garret Redding M.D. [id number]
--- NOTE | 2023-11-06 07:09 | XRR_ITS ---
PROCEDURE INFORMATION: Exam: XR Chest Exam date and time: 11/06/2023 7:17 AM Age: 73 years old Clinical indication: Pain; Angina pectoris; Prior surgery; Surgery date: 6+ months; Surgery type: Gastric bypass; Additional info: Chest pain TECHNIQUE: Imaging protocol: Radiologic exam of the chest. Views: 1 view. COMPARISON: CR XR chest 1V portable [id number] 07/19/2023 4:59 PM FINDINGS: Lungs: The lungs are clear without acute infiltrate. Pleural spaces: No significant pleural fluid. No pneumothorax detected. Heart/Mediastinum: Heart size is stable compared to 07/19/2023. No pulmonary vascular congestion. Bones/joints: No obvious acute abnormality. XR/XR chest 1V portable [id number] IMPRESSION: No acute cardiopulmonary abnormality detected on AP portable chest radiograph.
--- NOTE | 2023-11-06 07:10 | ED_ITS ---
HPI - Chest Pain 2 General: Chief Complaint: Chest Pain Stated Complaint: chest pain Time Seen by Provider: 11/06/23 07:03 Source: patient Mode of arrival: ambulatory History of Present Illness: 73-year-old female presents ER with comp laint of chest pain that began this morning. Patient states that she is having a heart attack. 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 She does have a history of cognitive impairment she has no known history of coronary artery disease. She had a normal Lexiscan sestamibi stress test 1 year ago. She is diabetic and does take aspirin daily. No chest pain shortness of breath nausea or vomiting at this time. Patient states she did take her medications this morning. No family present when patient arrived. Patient had a normal Lexiscan sestamibi stress test October 2022 reviewed on the chart. MD complaint: chest pain Onset (ago): hour(s) Timing of current episode: episodic and now resolved Onset: during rest Pain location: left chest Pain radiation: left arm (While tourniquet is in place, IV being started and blood work being drawn) Severity: mild Quality: tightness and aching Relieving factors: nothing Exacerbating factors: nothing Associated symptoms: Deny abdominal pain, diaphoresis, dyspnea, fever(s), leg edema, nausea, palpitations, sense of impending doom, syncope or vomiting Treatment prior to arrival: aspirin Review of Systems 2 Const: Denies: fever(s), chills or diaphoresis Card: Denies: chest pain, palpitations or syncope Resp: Denies: dyspnea GI: Denies: abdominal pain, nausea or vomiting : Denies: dysuria, urinary frequency or urinary urgency Musc: Denies: neck pain or back pain Skin/Breast: Denies: rash PFSH ED 2 PFSH: Medical History (Updated 11/06/23 @ 10:09 by Virigl Gardner DO) Anemia Microcytic anemia Stomatitis and mucositis, unspecified Seasonal allergies Essential (primary) hypertension Hypertriglyceridemia TIA (transient ischemic attack) Enrolled in chronic care management COPD (chronic obstructive pulmonary disease) Type 2 diabetes mellitus, without long-term current use of insulin Cognitive impairment Surgical History S/P gastric bypass S/P appendectomy S/P cholecystectomy S/P hernia repair H/O section S/P tonsillectomy and adenoidectomy S/P tubal ligation H/O lithotripsy S/P nasal surgery Family History Father CAD (coronary artery disease) Mother Parkinson disease Stroke Dementia Family/Other Cancer Sister Dementia Other Hypertension Denies family history of Diabetes Clotting disorder Chronic kidney disease (CKD) Suicide Anesthesia complication Bleeding disorder Lung disease Social History Smoking and tobacco/nicotine status: never used tobacco/nicotine Alcohol intake: never Substance/Drug Use: never Marital status: Current occupational status: retired Female Reproductive History: Para: 3 Spontaneous abortions: Yes Physical Exam 2 Const: COMMON NORMALS: no acute distress GENERAL APPEARANCE: cooperative and comfortable ORIENTATION/CONSCIOUSNESS: Yes awake, Yes oriented to person, Yes oriented to place and Yes oriented to time HENMT: COMMON NORMALS: normocephalic, atraumatic and hearing grossly normal bilaterally HEAD & SCALP: normocephalic and atraumatic Resp: COMMON NORMALS: normal respiratory effort, No retractions, No use of accessory muscles and clear to auscultation bilaterally AUSCULTATION: clear to auscultation bilaterally Cardio: COMMON NORMALS: regular rate, regular rhythm and No murmurs present (Cardio) RATE: regular rate RHYTHM: regular rhythm GI: COMMON NORMALS: Soft to palpation and No hepatosplenomegaly present A USCULTATION: Yes normoactive bowel sounds PALPATION: Yes Soft to palpation, No Tenderness to palpation present (GI), No Guarding due to palpation present (GI) and Yes No hepatosplenomegaly present Extremity: COMMON NORMALS: normal to inspection, capillary refill normal, no clubbing, cyanosis or edema, no calf tenderness and no pedal edema Neuro: SENSORIUM/ORIENTATION: Yes oriented to person, Yes oriented to place and Yes oriented to time Skin: COMMON NORMALS: no rashes or lesions noted GENERAL SKIN EXAM: no rashes or lesions noted Course 2 Vital Signs: Vital signs: Vital Signs Temperature 98.0 F 11/06/23 07:11 Pulse Rate 65 11/06/23 09:20 Blood Pressure 142/88 11/06/23 09:20 Pulse Oximetry 98 11/06/23 09:20 Oxygen Delivery Me thod Room Air 11/06/23 07:20 MDM - Chest Pain Medical Decision Making EKG shows no acute changes cardiac enzymes showing no positive delta. Patient had Lexiscan sestamibi stress test 1 year ago that was normal. She does have some mild dementia. She actually was here at the hospital today with her getting an echocardiogram wandered off to the emergency room she somehow got through the doors unattended and came to the nurse station claiming she was a physician was having a heart attack. She denied having any further symptoms now we were able to put together what happened and her came to the ED after his test was completed. Discharged home with follow-up with primary care Medical Records I reviewed the patient's medical records. Lab Data I reviewed the patient's lab results. 11/06/23 07:16 11/06/23 07:16 Radiology Impressions Chest X-Ray 11/06/23 07:09 IMPRESSION: No acute cardiopulmonary abnormality detected on AP portable chest radiograph. Laboratory Results WBC 7.53 10^3/uL (3.29-11.43) 11/06/23 07:16 RBC 5.25 10^6/uL (3.85-5.65) 11/06/23 07:16 Hgb 14.80 g/dL (11.27-16.99) 11/06/23 07:16 Hct 45.2 % (36-47) 11/06/23 07:16 MCV 86.1 fl (85-98) 11/06/23 07:16 MCH 28.2 pg (27-33) 11/06/23 07:16 MCHC 32.7 g/dL (30-55) 11/06/23 07:16 RDW 14.3 % (12.1-15.1) 11/06/23 07:16 Plt Count 278 10^3/cmm (157-399) 11/06/23 07:16 MPV 8.5 fL (7.4-10.4) 11/06/23 07:16 Neut % (Auto) 73.4 % 11/06/23 07:16 Lymph % (Auto) 18.6 % 11/06/23 07:16 [place] % (Auto) 4.8 % 11/06/23 07:16 Eos % (Auto) 2.8 % 11/06/23 07:16 Baso % (Auto) 0.3 % 11/06/23 07:16 Neut # (Auto) 5.53 10^3/uL (1.8-7.7) 11/06/23 07:16 Lymph # (Auto) 1.4 10^3/uL (0.8-4.8) 11/06/23 07:16 [place] # (Auto) 0.4 10^3/uL (0.2-0.9) 11/06/23 07:16 Eos # (Auto) 0.2 10^3/uL (0.0-0.8) 11/06/23 07:16 Baso # (Auto) 0.0 10^3/uL (0.0-0.1) 11/06/23 07:16 Nucleated RBC % (auto) 0 % 11/06/23 07:16 Nucleated RBCs # 0.0 /100WBC 11/06/23 07:16 Sodium 141 mmol/L (136-145) 11/06/23 07:16 Potassium 4.0 mmol/L (3.5-5.1) 11/06/23 07:16 Chloride 103 mmol/L (98-107) 11/06/23 07:16 Carbon Dioxide 27 mmol/L (22-29) 11/06/23 07:16 Anion Gap 15.0 (5-19) 11/06/23 07:16 BUN 8 mg/dL (8-23) 11/06/23 07:16 Creatinine 0.6 mg/dL (0.5-0.9) 11/06/23 07:16 GFR Calculation Not Reportable 11/06/23 07:16 Glucose 192 mg/dL (65-115) H 11/06/23 07:16 Calculated Osmolality 296 mOsm/kg (285-295) H 11/06/23 07:16 Calcium 9.6 mg/dL (8.5-10.5) 11/06/23 07:16 Total Bilirubin 0.7 mg/dL (0.15-1.2) 11/06/23 07:16 AST 45 U/L (0-32) H 11/06/23 07:16 ALT 54 U/L (0-33) H 11/06/23 07:16 Alkaline Phosphatase 153 U/L (35-105) H 11/06/23 07:16 Troponin T Baseline 9 ng/L (0-10) 11/06/23 07:16 Troponin T 120 Minute 6.70 ng/L (0-10) 11/06/23 09:16 Delta Troponin T -2.30 ABS# (0-10) L 11/06/23 09:16 Total Protein 7.0 g/dL (6.6-8.7) 11/06/23 07:16 Albumin 4.5 g/dL (3.5-5.2) 11/06/23 07:16 Globulin 2.5 g/dL (1.3-4.6) 11/06/23 07:16 All radiology interpretation(s) finalized by discharge EKG Data EKG 1: EKG interpretation date: 11/06/23 EKG interpretation time: 07:05 Ischemic changes: non-specific ST-T wave changes Interpretation: Initial EKG shows minor LVH with a normal sinus rhythm rate was no acute ST segment changes. Discharge Plan Discharge Patient Disposition: Home Clinical Impression: Atypical chest pain, Alzheimer disease Condition: Stable Prescriptions: No Action aspirin 325 mg tablet 325 mg PO QAM mecobalamin (vitamin B12) 1,000 mcg tablet,disintegrating 1,000 mcg SUBLINGUAL QAM rivastigmine 9.5 mg/24 hour patch 24 hour 1 patch topical DAILY@07 Qty: 90 3RF lisinopril 40 mg tablet 40 mg PO QAM Qty: 90 1RF amlodipine 10 mg tablet 10 mg PO DAILY 90 Days Qty: 90 3RF multivitamin [Multi-Vitamins] Tablet 1 tab PO QAM thiamine HCl (vitamin B1) [Vitamin B-1] 250 mg Tablet 250 mg PO QAM Ultra [place]-3 200-300-1,000 mg Capsule 1 cap PO DAILY glipizide 5 mg tablet extended release 24hr 5 mg PO DAILY Discharge Orders: Discharge ED (Routine); Ordered 11/06/23 Ordered By: Virgil Gardner Referrals: Amie Aaron DO [Primary Care Provider] - Discharge Diet: Usual diet Discharge Activity: Resume usual activity Patient Instructions: Opioid Safety, Pain Management Activity Restrictions/Additional Instructions: Thank you for choosing [facility] for your healthcare needs today. Please realize this is an emergency room and that we are providing you with a medical screening exam and this may not be complete and all inclusive of all the testing and or work up that you may need to determine your ailment or severity of your illness. It is very important that you follow up as instructed or that you return to the Emergency Department should you have concerns or if your condition changes or worsens in any way. You are seen today for chest discomfort. Cardiac enzymes and EKG were normal. There is no evidence of acute coronary syndrome. Coding Level of Care Code ED Carbon Paper Coating Supervisor for Talon Bernal
[2023-11-06 07:11] VITALS: BP 181/106; PULSE 70; TEMP 36.7; O2SAT 98; BMI 33.4
[2023-11-06 07:20] VITALS: BP 182/107; PULSE 73; O2SAT 99
[2023-11-06 07:26] LABS: Basophils % 0.3 %; Eosinophils # 0.2 10^3/uL (0.0-0.8); Eosinophils % 2.8 %; Hematocrit 45.2 % (36-47); Lymphocytes # 1.4 10^3/uL (0.8-4.8); Lymphocytes % 18.6 %; Mean Corpuscular HGB Conc 32.7 g/dL (30-55); Mean Corpuscular Hemoglobin 28.2 pg (27-33); Mean Corpuscular Volume 86.1 fl (85-98); Mean Platelet Volume 8.5 fL (7.4-10.4); Monocytes # 0.4 10^3/uL (0.2-0.9); Monocytes % 4.8 %; Neutrophils # 5.53 10^3/uL (1.8-7.7); Neutrophils % 73.4 %; Nucleated Red Blood Cells % 0 %; Platelet Count 278 10^3/cmm (157-399); Red Blood Count 5.25 10^6/uL (3.85-5.65); Red Cell Distribution Width 14.3 % (12.1-15.1); White Blood Count 7.53 10^3/uL (3.29-11.43)
[2023-11-06 07:50] VITALS: BP 154/92; PULSE 63; O2SAT 96
[2023-11-06 07:51] LABS: Alanine Aminotransferase 54 U/L (0-33); Albumin Level 4.5 g/dL (3.5-5.2); Alkaline Phosphatase 153 U/L (35-105); Aspartate Amino Transferase 45 U/L (0-32); Blood Urea Nitrogen 8 mg/dL (8-23); Calcium 9.6 mg/dL (8.5-10.5); Carbon Dioxide 27 mmol/L (22-29); Chloride 103 mmol/L (98-107); Globulin 2.5 g/dL (1.3-4.6); Glucose 192 mg/dL (65-115); Osmolality Calculated 296 mOsm/kg (285-295); Sodium 141 mmol/L (136-145); Total Bilirubin 0.7 mg/dL (0.15-1.2)
[2023-11-06 07:52] LABS: Troponin(5th) Baseline 9 ng/L (0-10)
[2023-11-06 08:20] VITALS: BP 152/80; PULSE 65; O2SAT 98
[2023-11-06 08:50] VITALS: BP 144/75; PULSE 67; O2SAT 96
--- NOTE | 2023-11-06 09:01 | ECG_ITS ---
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 Measurements Intervals [place] Rate: 65 P: 34 NE: 156 QRS: 5 QRSD: 64 T: 44 QT: 393 QTc: 410 Interpretive Statements SINUS RHYTHM MINIMAL VOLTAGE CRITERIA FOR LVH, CONSIDER NORMAL VARIANT [MEETS CRITERIA IN ONE OF: R(aVL), S(V1), R(V5), R(V5/V6)+S(V1)] POSSIBLE ANTERIOR MYOCARDIAL INFARCTION , PROBABLY OLD [30 ms Q WAVE IN V3/V4, OR R < 0.2 mV IN V4] Diffuse nonspecific T wave changes Compared to ECG 11/06/2023 07:05:07 No significant changes Electronically Signed On 11-07-2023 10:54:41 SENIOR REPORT DEVELOPER by Garret Redding M.D. [id number]
[2023-11-06 09:20] VITALS: BP 142/88; PULSE 65; O2SAT 98
== END 2023-11-06 10:47 | disposition home or self-care (01) ==
PROVIDERS: Emergency Provider Family Medicine; PCP Family Medicine
DX: R07.89 Other chest pain (principal); G30.9 Alzheimer's disease, unspecified; F02.80 Dementia in other diseases classified elsewhere, unspecified severity, without behavioral disturbance, psychotic disturbance, mood disturbance, and anxiety; Z79.82 Long term (current) use of aspirin; Z79.84 Long term (current) use of oral hypoglycemic drugs; I10 Essential (primary) hypertension; Z86.73 Personal history of transient ischemic attack (TIA), and cerebral infarction without residual deficits; J44.9 Chronic obstructive pulmonary disease, unspecified; E11.9 Type 2 diabetes mellitus without complications
CPT/HCPCS: 36415; 71045; 80053; 84484; 85025; 93005; 99285

== ENCOUNTER 2023-12-12 13:19 | Emergency (ER) | payer MEDICARE, BC, SELFPAY ==
[2023-12-12 13:20] VITALS: BMI 25.0
[2023-12-12 13:22] VITALS: BP 179/76; PULSE 67; RESP 16; TEMP 36.9; O2SAT 96
--- NOTE | 2023-12-12 13:24 | ECG_ITS ---
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 Measurements Intervals [place] Rate: 65 P: 36 HI: 153 QRS: -2 QRSD: 79 T: 30 QT: 408 QTc: 425 Interpretive Statements SINUS RHYTHM MODERATE VOLTAGE CRITERIA FOR LVH, CONSIDER NORMAL VARIANT [MEETS CRITERIA IN ONE OF: R(aVL), S(V1), R(V5), R(V5/V6)+S(V1)] Compared to ECG 11/06/2023 09:01:09 Myocardial infarct finding no longer present T-wave abnormality no longer present Electronically Signed On 12-12-2023 16:13:53 CDT by Ron Ochoa M.D. [id number]
--- NOTE | 2023-12-12 13:26 | XR_ITS ---
WS: [id number] Exam: XR chest 1V [id number] Date/Time of Exam: 12/12/2023 1:26 PM Reason For Exam: shortness of breath Comparison 11/06/2023. The lungs are fully inflated and clear. Normal cardiomediastinal silhouette and regional bony element s. No pleural effusion. IMPRESSION: 1. Negative chest.
--- NOTE | 2023-12-12 13:27 | W.ED.CHESTPA ---
HPI - Chest Pain General: Chief Complaint: Chest Pain Stated Complaint: CHEST PAIN Time Seen by Provider: 12/12/23 13:25 History of Present Illness: 73-year-old female with history of anemia, COPD, hypertension, type 2 diabetes and hyperlipidemia who presents to the emergency room by air ambulance with chest pain and concern for an abnormal EKG. She has difficulty telling me exactly what from. She says she just feels sick. She has some epigastric discomfort and possibly some substernal discomfort. She says she feels a little bit nauseous. No chest tightness. EKG by EMS does not show any obvious ST elevation. No known fevers. No cough. No lower extremity swelling. Review of Systems Narrative: Constitutional symptoms: Negative except as documented in HPI. Skin symptoms: Negative except as documented in HPI. Eye symptoms: Negative except as documented in HPI. ENMT symptoms: Negative except as documented in HPI. Respiratory symptoms: Negative except as documented in HPI. Cardiovascular symptoms: Negative except as documented in HPI. Gastrointestinal symptoms: Negative except as documented in HPI. Genitourinary symptoms: Negative except as documented in HPI. Musculoskeletal symptoms: Negative except as documented in HPI. Neurologic symptoms: Negative except as documented in HPI. Psychiatric symptoms: Negative except as documented in HPI. Endocrine symptoms: Negative except as documented in HPI. [facility] ED PFSH: Medical History (Updated 12/12/23 @ 16:53 by Luana Smith MD) Anemia Microcytic anemia Stomatitis and mucositis, unspecified Seasonal allergies Essential (primary) hypertension Hypertriglyceridemia TIA (transient ischemic attack) Enrolled in chronic care management COPD (chronic obstructive pulmonary disease) Type 2 diabetes mellitus, without long-term current use of insulin Cognitive impairment Surgical History S/P gastric bypass S/P appendectomy S/P cholecystectomy S/P hernia repair H/O section S/P tonsillectomy and adenoidectomy S/P tubal ligation H/O lithotripsy S/P nasal surgery Family History Father CAD (coronary artery disease) Mother Parkinson disease Stroke Dementia Family/Other Cancer Sister Dementia Other Hypertension Denies family history of Diabetes Clotting disorder Chronic kidney disease (CKD) Suicide Anesthesia complication Bleeding disorder Lung disease Social History Smoking and tobacco/nicotine status: never used tobacco/nicotine Alcohol intake: never Substance/Drug Use: never Marital status: Current occupational status: retired Female Reproductive History: Para: 3 Spontaneous abortions: Yes Physical Exam Narrative: EXAM NARRATIVE: General: Alert, no acute distress. Skin: Warm, dry. Head: Normocephalic, atraumatic. Neck: Supple, trachea midline. Eye: Extraocular movements are intact. Ears, nose, mouth and throat: mucosa moist. Cardiovascular: Regular, Normal peripheral perfusion. Respiratory: Lungs are clear to auscultation, respirations are non-labored, breath sounds are equal, Symmetrical chest wall expansion. Gastrointestinal: Soft, Nontender, Non distended, Normal bowel sounds. Musculoskeletal: Normal ROM, no deformity. Neurological: Alert and oriented, No focal neurological deficit observed. Psychiatric: Cooperative, patient is very vague and has a strange affect Course Vital Signs: Vital signs: Vital Signs Temperature 98.4 F 12/12/23 13:22 Pulse Rate 70 12/12/23 15:00 Respiratory Rate 16 12/12/23 13:22 Blood Pressure 173/99 12/12/23 15:00 Pulse Oximetry 98 12/12/23 15:00 Oxygen Delivery Me thod Room Air 12/12/23 13:22 MDM - Chest Pain Medical Decision Making Differential diagnosis for patient with chest pain includes but is not limited to and based on the above HPI, review of systems and physical exam: Pneumonia. unstable angina. angina. Acute coronary syndrome / AR. Pulmonary embolism. Costochondritis / musculoskeletal. Pleurisy. Pericarditis. Esophageal spasm. Pancreatis. Cholecystitis. Workup: Lab work, chest X-ray and EKG ordered to evaluate, rule in and rule out above pathologies. Workup is unremarkable. No leukocytosis. No renal failure. Serial cardiac markers are normal. Lab Review: Laboratory results were reviewed and interpreted by myself the emergency room physician. EK PM. Rate 65 normal sinus rhythm, No ST-T changes, no ectopy, normal ND & QRS intervals, This was reviewed and interpreted by myself the ER physician at 1328 PM. EK 5 PM. Rate 64. Normal sinus rhythm, No ST-T changes, no ectopy, normal ND & QRS intervals, This was reviewed and interpreted by myself the ER physician at 1546 PM. Chest x-ray: No acute process. No infiltrate. No pneumothorax. No cardiomegaly. This was reviewed and interpreted by myself the ER physician. Reexamination: Patient remained stable. She seems more alert than when she initially got here. No further pain. No increased work of breathing. Lab Data 12/12/23 14:13 12/12/23 14:13 Laboratory Results WBC 6.17 10^3/uL (3.29-11.43) 12/12/23 14:13 RBC 4.60 10^6/uL (3.85-5.65) 12/12/23 14:13 Hgb 13.10 g/dL (11.27-16.99) 12/12/23 14:13 Hct 40.3 % (36-47) 12/12/23 14:13 MCV 87.6 fl (85-98) 12/12/23 14:13 MCH 28.5 pg (27-33) 12/12/23 14:13 MCHC 32.5 g/dL (30-55) 12/12/23 14:13 RDW 13.2 % (12.1-15.1) 12/12/23 14:13 Plt Count 266 10^3/cmm (157-399) 12/12/23 14:13 MPV 8.2 fL (7.4-10.4) 12/12/23 14:13 Neut % (Auto) 63.7 % 12/12/23 14:13 Lymph % (Auto) 26.3 % 12/12/23 14:13 [place] % (Auto) 6.8 % 12/12/23 14:13 Eos % (Auto) 2.4 % 12/12/23 14:13 Baso % (Auto) 0.6 % 12/12/23 14:13 Neut # (Auto) 3.93 10^3/uL (1.8-7.7) 12/12/23 14:13 Lymph # (Auto) 1.6 10^3/uL (0.8-4.8) 12/12/23 14:13 [place] # (Auto) 0.4 10^3/uL (0.2-0.9) 12/12/23 14:13 Eos # (Auto) 0.2 10^3/uL (0.0-0.8) 12/12/23 14:13 Baso # (Auto) 0.0 10^3/uL (0.0-0.1) 12/12/23 14:13 Nucleated RBC % (auto) 0 % 12/12/23 14:13 Nucleated RBCs # 0.0 /100WBC 12/12/23 14:13 Sodium 140 mmol/L (136-145) 12/12/23 14:13 Potassium 4.3 mmol/L (3.5-5.1) 12/12/23 14:13 Chloride 106 mmol/L (98-107) 12/12/23 14:13 Carbon Dioxide 25 mmol/L (22-29) 12/12/23 14:13 Anion Gap 13.3 (5-19) 12/12/23 14:13 BUN 11 mg/dL (8-23) 12/12/23 14:13 Creatinine 0.6 mg/dL (0.5-0.9) 12/12/23 14:13 GFR Calculation Not Reportable 12/12/23 14:13 Glucose 170 mg/dL (65-115) H 12/12/23 14:13 Calculated Osmolality 293 mOsm/kg (285-295) 12/12/23 14:13 Calcium 9.4 mg/dL (8.5-10.5) 12/12/23 14:13 Total Bilirubin 0.6 mg/dL (0.15-1.2) 12/12/23 14:13 AST 71 U/L (0-32) H 12/12/23 14:13 ALT 37 U/L (0-33) H 12/12/23 14:13 Alkaline Phosphatase 131 U/L (35-105) H 12/12/23 14:13 Troponin T Baseline < 6 ng/L (0-10) 12/12/23 14:13 Troponin T 120 Minute 6.00 ng/L (0-10) 12/12/23 16:14 Delta Troponin T 0.72327 ABS# (0-10) 12/12/23 16:14 Total Protein 6.5 g/dL (6.6-8.7) L 12/12/23 14:13 Albumin 4.1 g/dL (3.5-5.2) 12/12/23 14:13 Globulin 2.4 g/dL (1.3-4.6) 12/12/23 14:13 Lipase 51 U/L (13-60) 12/12/23 14:13 All radiology interpretation(s) finalized by discharge Other Data Assessment and plan: Noncardiac chest pain - Discharged home - Discussed findings and plan with patient. Answered any questions. - All laboratory values were reviewed and interpreted personally by myself, the ER physician - All imaging was reviewed and interpreted personally by myself, the ER physician. - Evaluation and treatment of this problem were appropriate in the emergency setting Discharge Plan Discharge Patient Disposition: Home Clinical Impression: Atypical chest pain Condition: Stable Prescriptions: No Action aspirin 325 mg tablet 325 mg PO QAM mecobalamin (vitamin B12) 1,000 mcg tablet,disintegrating 1,000 mcg SUBLINGUAL QAM rivastigmine 9.5 mg/24 hour patch 24 hour 1 patch topical DAILY@07 Qty: 90 3RF lisinopril 40 mg tablet 40 mg PO QAM Qty: 90 1RF amlodipine 10 mg tablet 10 mg PO DAILY 90 Days Qty: 90 3RF multivitamin [Multi-Vitamins] Tablet 1 tab PO QAM thiamine HCl (vitamin B1) [Vitamin B-1] 250 mg Tablet 250 mg PO QAM omega 0-yls-sef-fish oil [Ultra Kemp-3] 200-300-1,000 mg Capsule 1 cap PO DAILY glipizide 5 mg tablet extended release 24hr 5 mg PO DAILY Discharge Orders: Discharge ED (Routine); Ordered 12/12/23 Ordered By: Luana Smith Referrals: Amie Aaron DO [Primary Care Provider] - 4-7 days (You have been screened and evaluated and felt safe for discharge. Health conditions do change or evolve sometimes and as such it is important that you follow up with your Primary Doctor to be re checked, 3-5 days is a general good time frame for follow up. You are always welcome to return to the ED for re assessment if your symptoms are worsening or you have new concerns) Discharge Diet: Usual diet Discharge Activity: Resume usual activity Patient Instructions: Noncardiac Chest Pain (ED), Opioid Safety, Pain Management Coding Level of Care Code ED Line Up Machine Operator for Talon Bernal
[2023-12-12 13:52] VITALS: BP 161/97; PULSE 64; O2SAT 97
[2023-12-12] MEDS: ondansetron 2 mg/ML SDV 2 mL 4 MG IVP (13:52)
[2023-12-12 14:23] LABS: Basophils % 0.6 %; Eosinophils # 0.2 10^3/uL (0.0-0.8); Eosinophils % 2.4 %; Hematocrit 40.3 % (36-47); Lymphocytes # 1.6 10^3/uL (0.8-4.8); Lymphocytes % 26.3 %; Mean Corpuscular HGB Conc 32.5 g/dL (30-55); Mean Corpuscular Hemoglobin 28.5 pg (27-33); Mean Corpuscular Volume 87.6 fl (85-98); Mean Platelet Volume 8.2 fL (7.4-10.4); Monocytes # 0.4 10^3/uL (0.2-0.9); Monocytes % 6.8 %; Neutrophils # 3.93 10^3/uL (1.8-7.7); Neutrophils % 63.7 %; Nucleated Red Blood Cells % 0 %; Platelet Count 266 10^3/cmm (157-399); Red Cell Distribution Width 13.2 % (12.1-15.1); White Blood Count 6.17 10^3/uL (3.29-11.43)
[2023-12-12 14:44] LABS: Alanine Aminotransferase 37 U/L (0-33); Albumin Level 4.1 g/dL (3.5-5.2); Alkaline Phosphatase 131 U/L (35-105); Anion Gap 13.3 (5-19); Aspartate Amino Transferase 71 U/L (0-32); Blood Urea Nitrogen 11 mg/dL (8-23); Calcium 9.4 mg/dL (8.5-10.5); Carbon Dioxide 25 mmol/L (22-29); Chloride 106 mmol/L (98-107); Creatinine Clr Calc Pharmacy 53.8168; Globulin 2.4 g/dL (1.3-4.6); Glucose 170 mg/dL (65-115); Lipase 51 U/L (13-60); Osmolality Calculated 293 mOsm/kg (285-295); Potassium 4.3 mmol/L (3.5-5.1); Sodium 140 mmol/L (136-145); Total Bilirubin 0.6 mg/dL (0.15-1.2); Total Protein 6.5 g/dL (6.6-8.7); Troponin(5th) Baseline < 6 ng/L (0-10)
[2023-12-12 14:52] VITALS: BP 173/99; PULSE 64; O2SAT 98
[2023-12-12 15:00] VITALS: BP 173/99; PULSE 70; O2SAT 98
--- NOTE | 2023-12-12 15:25 | ECG_ITS ---
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 Measurements Intervals [place] Rate: 64 P: 34 VT: 148 QRS: 6 QRSD: 80 T: 25 QT: 409 QTc: 424 Interpretive Statements SINUS RHYTHM MINIMAL VOLTAGE CRITERIA FOR LVH, CONSIDER NORMAL VARIANT [MEETS CRITERIA IN ONE OF: R(aVL), S(V1), R(V5), R(V5/V6)+S(V1)] Compared to ECG 12/12/2023 13:24:53 No significant changes Electronically Signed On 12-12-2023 16:14:16 CDT by Ron Ochoa M.D. [email or web address]
[2023-12-12 16:53] LABS: Troponin 5 2HR Delta 0.00001 ABS# (0-10)
== END 2023-12-12 17:08 | disposition home or self-care (01) ==
PROVIDERS: Emergency Provider Emergency Medicine; PCP Family Medicine
DX: R07.89 Other chest pain (principal); Z79.82 Long term (current) use of aspirin; Z79.84 Long term (current) use of oral hypoglycemic drugs; I10 Essential (primary) hypertension; Z86.73 Personal history of transient ischemic attack (TIA), and cerebral infarction without residual deficits; J44.9 Chronic obstructive pulmonary disease, unspecified; E11.9 Type 2 diabetes mellitus without complications
CPT/HCPCS: 36415; 71045; 80053; 83690; 84484; 85025; 93005; 96374; 99285; J2405

== ENCOUNTER 2023-12-29 17:53 | Emergency (ER) | payer MEDICARE, BC, SELFPAY ==
[2023-12-29 18:02] VITALS: BP 166/88; PULSE 70; RESP 16; TEMP 36.7; O2SAT 98; BMI 36.6
--- NOTE | 2023-12-29 18:16 | XRR_ITS ---
PROCEDURE INFORMATION: Exam: XR Chest Exam date and time: 12/29/2023 6:22 PM Age: 73 years old Clinical indication: Chest pressure; Prior surgery; Surgery date: 6+ months; Surgery type: Gastric bypass; Patient HX: C/O chest pain TECHNIQUE: Imaging protocol: Radiologic exam of the chest. Views: 1 view. COMPARISON: CR XR chest 1V [id number] 12/12/2023 1:44 PM FINDINGS: Lungs: No focal consolidation. Pleural spaces: No evidence of pneumothorax. No evidence of pleural effusion. Heart/Mediastinum: Cardiomediastinal silhouette is within normal limits. Bones/joints: No evidence of acute osseous abnormality. XR/XR chest 1V portable [id number] IMPRESSION: 1. No acute cardiopulmonary abnormality.
--- NOTE | 2023-12-29 18:16 | ECG_ITS ---
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 Measurements Intervals [place] Rate: 72 P: 14 NE: 164 QRS: 61 QRSD: 71 T: 28 QT: 352 QTc: 385 Interpretive Statements SINUS RHYTHM ANTEROSEPTAL MYOCARDIAL INFARCTION , PROBABLY OLD [40+ ms Q WAVE IN V1-V4] Diffuse nonspecific T wave changes Compared to ECG 12/12/2023 15:45:21 Myocardial infarct finding now present Electronically Signed On 12-29-2023 20:54:04 CDT by Garret Redding M.D. [id number]
--- NOTE | 2023-12-29 18:20 | W.ED.CHESTPA ---
Documented by User: ROGER Marquez 12/29/23 20:00 HPI - Chest Pain General: Chief Complaint: Chest Pain Stated Complaint: chest pains Time Seen by Provider: 12/29/23 18:16 History of Present Illness: 73-year-old female comes in today with complaints of left-sided chest pain that started yesterday. Patient has a history of recurrent chest pain, dementia, diabetes mellitus, and high blood pressure. Patient appears nontoxic. Patient appears in no severe pain. Patient responds appropriate to questions. Patient is slow to answer questions at times. Patient often defers her questions and answers to her . Review of Systems General: Reports: 10 or more systems reviewed and unremarkable except in HPI and below Card: Reports: chest pain PFS ED PFSH: Medical History (Updated 12/29/23 @ 19:53 by ROGER Marquez) Anemia Microcytic anemia Stomatitis and mucositis, unspecified Seasonal allergies Essential (primary) hypertension Hypertriglyceridemia TIA (transient ischemic attack) Enrolled in chronic care management COPD (chronic obstructive pulmonary disease) Type 2 diabetes mellitus, without long-term current use of insulin Cognitive impairment Surgical History S/P gastric bypass S/P appendectomy S/P cholecystectomy S/P hernia repair H/O section S/P tonsillectomy and adenoidectomy S/P tubal ligation H/O lithotripsy S/P nasal surgery Family History Father CAD (coronary artery disease) Mother Parkinson disease Stroke Dementia Family/Other Cancer Sister Dementia Other Hypertension Denies family history of Diabetes Clotting disorder Chronic kidney disease (CKD) Suicide Anesthesia complication Bleeding disorder Lung disease Social History Smoking and tobacco/nicotine status: never used tobacco/nicotine Alcohol intake: never Substance/Drug Use: never Marital status: Current occupational status: retired Female Reproductive History: Para: 3 Spontaneous abortions: Yes Physical Exam Const: COMMON NORMALS: no acute distress Neck/C-Spine: COMMON NORMALS: full ROM Chest: COMMONS NORMALS: normal palpation of entire chest wall Resp: COMMON NORMALS: normal respiratory effort and clear to auscultation bilaterally AUSCULTATION: clear to auscultation bilaterally Cardio: COMMON NORMALS: regular rate and regular rhythm RATE: regular rate RHYTHM: regular rhythm GI: COMMON NORMALS: Soft to palpation and non-tender PALPATION: Yes Soft to palpation Back/Pelvis: COMMON NORMALS: thoracic and lumbar spine normal to inspection Extremity: COMMON NORMALS: full ROM Neuro: AGNIESZKA COMA SCALE: document GCS findings Agnieszka coma scale eye opening: Spontaneous Agnieszka coma scale verbal response: Orientated Agnieszka coma scale motor response: Obey commands [place] coma scale total score: 15 Skin: COMMON NORMALS: turgor normal GENERAL SKIN EXAM: turgor normal Course Vital Signs: Vital signs: Vital Signs Temperature 98.0 F 12/29/23 18:02 Pulse Rate 70 12/29/23 18:40 Respiratory Rate 18 12/29/23 20:03 Blood Pressure 180/60 12/29/23 20:03 Pulse Oximetry 96 12/29/23 20:03 Oxygen Delivery Me thod Room Air 12/29/23 18:02 MDM - Chest Pain Medical Decision Making 73-year-old female comes in today with complaints of left chest pain. Patient appears nontoxic. Chest wall is nontender. Abdomen soft nontender. Patient does endorse some mild left CVA tenderness. Vital signs are normal except for elevated blood pressure. Differential diagnosis includes but not limited to anxiety about health, angina, ACS, pneumonia, pyelonephritis, renal calculi, UTI, gastritis. CBC and CMP and urinalysis were unremarkable. Patient's troponin was normal. Second troponin was deferred due to chest pain going on for 2 days. Recommended patient follow-up with primary care to discuss other evaluation of the chest discomfort. Patient has been seen 3 times over the last 45 days for this complaint. Patient at times is confused when speaking to her about her chest pain. states that they have an appointment to be seen tomorrow and will follow-up with Dr. Aaron in office. Lab Data 12/29/23 18:23 12/29/23 18:23 Radiology Impressions Chest X-Ray 12/29/23 18:16 IMPRESSION: 1. No acute cardiopulmonary abnormality. Head CT 12/29/23 19:15 IMPRESSION: 1. No acute intracranial abnormality. If there is clinical concern for acute ischemia beyond the window for neuro intervention, consider correlation with MRI. Laboratory Results WBC 6.62 10^3/uL (3.29-11.43) 12/29/23 18: RBC 4.97 10^6/uL (3.85-5.65) 12/29/23 18: Hgb 14.20 g/dL (11.27-16.99) 12/29/23 18: Hct 42.6 % (36-47) 12/29/23 18: MCV 85.7 fl (85-98) 12/29/23 18: MCH 28.6 pg (27-33) 12/29/23 18: MCHC 33.3 g/dL (30-55) 12/29/23 18: RDW 13.0 % (12.1-15.1) 12/29/23 18: Plt Count 285 10^3/cmm (157-399) 12/29/23 18: MPV 8.4 fL (7.4-10.4) 12/29/23 18: Neut % (Auto) 59.7 % 12/29/23 18: Lymph % (Auto) 29.8 % 12/29/23 18: [place] % (Auto) 6.6 % 12/29/23 18: Eos % (Auto) 2.9 % 12/29/23 18: Baso % (Auto) 0.8 % 12/29/23 18: Neut # (Auto) 3.96 10^3/uL (1.8-7.7) 12/29/23 18: Lymph # (Auto) 2.0 10^3/uL (0.8-4.8) 12/29/23 18: [place] # (Auto) 0.4 10^3/uL (0.2-0.9) 12/29/23 18: Eos # (Auto) 0.2 10^3/uL (0.0-0.8) 12/29/23 18: Baso # (Auto) 0.1 10^3/uL (0.0-0.1) 12/29/23 18: Nucleated RBC % (auto) 0 % 12/29/23 18: Nucleated RBCs # 0.0 /100WBC 12/29/23 18: Sodium 141 mmol/L (136-145) 12/29/23 18: Potassium 3.9 mmol/L (3.5-5.1) 12/29/23 18:23 Chloride 105 mmol/L (98-107) 12/29/23 18:23 Carbon Dioxide 25 mmol/L (22-29) 12/29/23 18:23 Anion Gap 14.9 (5-19) 12/29/23 18:23 BUN 8 mg/dL (8-23) 12/29/23 18:23 Creatinine 0.8 mg/dL (0.5-0.9) 12/29/23 18:23 GFR Calculation Not Reportable 12/29/23 18:23 Glucose 154 mg/dL (65-115) H 12/29/23 18:23 Calculated Osmolality 293 mOsm/kg (285-295) 12/29/23 18: Calcium 10.0 mg/dL (8.5-10.5) 12/29/23 18: Total Bilirubin 0.7 mg/dL (0.15-1.2) 12/29/23 18: AST 19 U/L (0-32) 12/29/23 18:23 ALT 18 U/L (0-33) 12/29/23 18:23 Alkaline Phosphatase 145 U/L (35-105) H 12/29/23 18:23 Troponin T Baseline 8 ng/L (0-10) 12/29/23 18:23 Total Protein 7.0 g/dL (6.6-8.7) 12/29/23 18:23 Albumin 4.5 g/dL (3.5-5.2) 12/29/23 18: Globulin 2.5 g/dL (1.3-4.6) 12/29/23 18:23 Lipase 48 U/L (13-60) 12/29/23 18:23 TSH 2.50 uIU/mL (0.27-4.20) 12/29/23 18:24 Urine Color Light yellow (Yellow) 12/29/23 18:45 Urine Appearance Clear (CLEAR) 12/29/23 18:45 Urine pH 5 (5-7) 12/29/23 18:45 Ur Specific [place] 1.010 (1.005-1.030) 12/29/23 18:45 Urine Protein Neg (Negative) 12/29/23 18:45 Urine Glucose (UA) Norm (Normal) 12/29/23 18:45 Urine Ketones Negative (Negative) 12/29/23 18:45 Urine Blood Neg (Negative) 12/29/23 18:45 Urine Nitrate Negative (Negative) 12/29/23 18:45 Urine Bilirubin Neg (Negative) 12/29/23 18:45 Urine Urobilinogen Neg mg/dL (Negative) 12/29/23 18:45 Ur Leukocyte Esterase Negative (Negative) 12/29/23 18:45 All radiology interpretation(s) finalized by discharge EKG Data EKG 1: EKG interpretation date: 12/29/23 EKG interpretation time: 18:51 Interpretation: EKG shows a sinus rhythm with a regular rate at [address] elevation or ectopy is noted at this time. When compared to prior exam on December 11 there has been no significant changes. Computer generated interpretation: Sinus rhythm, minimal voltage criteria for LVH, consider normal variant, possible anterior myocardial infarction, probably old, borderline EKG, unconfirmed report. Discharge Plan Discharge Patient Disposition: Home Clinical Impression: Chest pain Qualifiers: Chest pain type: unspecified Qualified Code(s): R07.9 - Chest pain, unspecified Condition: Stable Prescriptions: No Action aspirin 325 mg tablet 325 mg PO QAM mecobalamin (vitamin B12) 1,000 mcg tablet,disintegrating 1,000 mcg SUBLINGUAL QAM rivastigmine 9.5 mg/24 hour patch 24 hour 1 patch topical DAILY@07 Qty: 90 3RF lisinopril 40 mg tablet 40 mg PO QAM Qty: 90 1RF amlodipine 10 mg tablet 10 mg PO DAILY 90 Days Qty: 90 3RF quetiapine [Seroquel] 25 mg tablet 25 mg PO BID Qty: 60 5RF multivitamin [Multi-Vitamins] Tablet 1 tab PO QAM thiamine HCl (vitamin B1) [Vitamin B-1] 250 mg Tablet 250 mg PO QAM omega 8-nef-mmi-fish oil [Ultra Beverly-3] 200-300-1,000 mg Capsule 1 cap PO DAILY glipizide 5 mg tablet extended release 24hr 5 mg PO DAILY Discharge Orders: Discharge ED (Routine); Ordered 12/29/23 Ordered By: Ifeanyi Higgins Referrals: Amie Aaron DO [Primary Care Provider] - Discharge Diet: Usual diet Discharge Activity: Increase activity as tolerated Patient Instructions: Chest Pain (ED) Activity Restrictions/Additional Instructions: Follow-up with primary care office in the morning to discuss other evaluation and treatment options. Coding Level of Care Code ED Biomedical Equipment Support Specialist for Chg Fwd Documented by User: Keith Palomo DO 12/30/23 03:16 HPI - Chest Pain General: Chief Complaint: Chest Pain Stated Complaint: chest pains Time Seen by Provider: 12/29/23 18:16 PFSH ED PFSH: Medical History (Updated 12/29/23 @ 19:53 by ROGER Marquez) Anemia Microcytic anemia Stomatitis and mucositis, unspecified Seasonal allergies Essential (primary) hypertension Hypertriglyceridemia TIA (transient ischemic attack) Enrolled in chronic care management COPD (chronic obstructive pulmonary disease) Type 2 diabetes mellitus, without long-term current use of insulin Cognitive impairment Surgical History S/P gastric bypass S/P appendectomy S/P cholecystectomy S/P hernia repair H/O section S/P tonsillectomy and adenoidectomy S/P tubal ligation H/O lithotripsy S/P nasal surgery Family History Father CAD (coronary artery disease) Mother Parkinson disease Stroke Dementia Family/Other Cancer Sister Dementia Other Hypertension Denies family history of Diabetes Clotting disorder Chronic kidney disease (CKD) Suicide Anesthesia complication Bleeding disorder Lung disease Social History Smoking and tobacco/nicotine status: never used tobacco/nicotine Alcohol intake: never Substance/Drug Use: never Marital status: Current occupational status: retired Physical Exam Neuro: AGNIESZKA COMA SCALE: document GCS findings [place] coma scale total score: 15 Course Vital Signs: Vital signs: Vital Signs Temperature 98.0 F 12/29/23 18:02 Pulse Rate 70 12/29/23 18:40 Respiratory Rate 18 12/29/23 20:03 Blood Pressure 180/60 12/29/23 20:03 Pulse Oximetry 96 12/29/23 20:03 Oxygen Delivery Me thod Room Air 12/29/23 18:02 MDM - Chest Pain Medical Decision Making 73-year-old female comes in today with complaints of left chest pain. Patient appears nontoxic. Chest wall is nontender. Abdomen soft nontender. Patient does endorse some mild left CVA tenderness. Vital signs are normal except for elevated blood pressure. Differential diagnosis includes but not limited to anxiety about health, angina, ACS, pneumonia, pyelonephritis, renal calculi, UTI, gastritis. CBC and CMP and urinalysis were unremarkable. Patient's troponin was normal. Second troponin was deferred due to chest pain going on for 2 days. Recommended patient follow-up with primary care to discuss other evaluation of the chest discomfort. Patient has been seen 3 times over the last 45 days for this complaint. Patient at times is confused when speaking to her about her chest pain. states that they have an appointment to be seen tomorrow and will follow-up with Dr. Aaron in office. This patient was originally seen by ROGER Jo.? I agree with his history, evaluation, and treatment. Lab Data 12/29/23 18:23 12/29/23 18:23 Radiology Impressions Chest X-Ray 12/29/23 18:16 IMPRESSION: 1. No acute cardiopulmonary abnormality. Head CT 12/29/23 19:15 IMPRESSION: 1. No acute intracranial abnormality. If there is clinical concern for acute ischemia beyond the window for neuro intervention, consider correlation with MRI. Laboratory Results WBC 6.62 10^3/uL (3.29-11.43) 12/29/23 18: RBC 4.97 10^6/uL (3.85-5.65) 12/29/23 18: Hgb 14.20 g/dL (11.27-16.99) 12/29/23 18: Hct 42.6 % (36-47) 12/29/23 18: MCV 85.7 fl (85-98) 12/29/23 18: MCH 28.6 pg (27-33) 12/29/23 18: MCHC 33.3 g/dL (30-55) 12/29/23 18: RDW 13.0 % (12.1-15.1) 12/29/23 18: Plt Count 285 10^3/cmm (157-399) 12/29/23 18:23 MPV 8.4 fL (7.4-10.4) 12/29/23 18:23 Neut % (Auto) 59.7 % 12/29/23 18:23 Lymph % (Auto) 29.8 % 12/29/23 18:23 [place] % (Auto) 6.6 % 12/29/23 18:23 Eos % (Auto) 2.9 % 12/29/23 18:23 Baso % (Auto) 0.8 % 12/29/23 18: Neut # (Auto) 3.96 10^3/uL (1.8-7.7) 12/29/23 18:23 Lymph # (Auto) 2.0 10^3/uL (0.8-4.8) 12/29/23 18: [place] # (Auto) 0.4 10^3/uL (0.2-0.9) 12/29/23 18:23 Eos # (Auto) 0.2 10^3/uL (0.0-0.8) 12/29/23 18: Baso # (Auto) 0.1 10^3/uL (0.0-0.1) 12/29/23 18:23 Nucleated RBC % (auto) 0 % 12/29/23 18: Nucleated RBCs # 0.0 /100WBC 12/29/23 18:23 Sodium 141 mmol/L (136-145) 12/29/23 18:23 Potassium 3.9 mmol/L (3.5-5.1) 12/29/23 18: Chloride 105 mmol/L (98-107) 12/29/23 18:23 Carbon Dioxide 25 mmol/L (22-29) 12/29/23 18:23 Anion Gap 14.9 (5-19) 12/29/23 18:23 BUN 8 mg/dL (8-23) 12/29/23 18:23 Creatinine 0.8 mg/dL (0.5-0.9) 12/29/23 18:23 GFR Calculation Not Reportable 12/29/23 18:23 Glucose 154 mg/dL (65-115) H 12/29/23 18:23 Calculated Osmolality 293 mOsm/kg (285-295) 12/29/23 18:23 Calcium 10.0 mg/dL (8.5-10.5) 12/29/23 18:23 Total Bilirubin 0.7 mg/dL (0.15-1.2) 12/29/23 18:23 AST 19 U/L (0-32) 12/29/23 18:23 ALT 18 U/L (0-33) 12/29/23 18:23 Alkaline Phosphatase 145 U/L (35-105) H 12/29/23 18:23 Troponin T Baseline 8 ng/L (0-10) 12/29/23 18:23 Total Protein 7.0 g/dL (6.6-8.7) 12/29/23 18:23 Albumin 4.5 g/dL (3.5-5.2) 12/29/23 18:23 Globulin 2.5 g/dL (1.3-4.6) 12/29/23 18:23 Lipase 48 U/L (13-60) 12/29/23 18:23 TSH 2.50 uIU/mL (0.27-4.20) 12/29/23 18:24 Urine Color Light yellow (Yellow) 12/29/23 18:45 Urine Appearance Clear (CLEAR) 12/29/23 18:45 Urine pH 5 (5-7) 12/29/23 18:45 Ur Specific [place] 1.010 (1.005-1.030) 12/29/23 18:45 Urine Protein Neg (Negative) 12/29/23 18:45 Urine Glucose (UA) Norm (Normal) 12/29/23 18:45 Urine Ketones Negative (Negative) 12/29/23 18:45 Urine Blood Neg (Negative) 12/29/23 18:45 Urine Nitrate Negative (Negative) 12/29/23 18:45 Urine Bilirubin Neg (Negative) 12/29/23 18:45 Urine Urobilinogen Neg mg/dL (Negative) 12/29/23 18:45 Ur Leukocyte Esterase Negative (Negative) 12/29/23 18:45 Discharge Plan Discharge Patient Disposition: Home Clinical Impression: Chest pain Qualifiers: Chest pain type: unspecified Qualified Code(s): R07.9 - Chest pain, unspecified Condition: Stable Prescriptions: No Action aspirin 325 mg tablet 325 mg PO QAM mecobalamin (vitamin B12) 1,000 mcg tablet,disintegrating 1,000 mcg SUBLINGUAL QAM rivastigmine 9.5 mg/24 hour patch 24 hour 1 patch topical DAILY@07 Qty: 90 3RF lisinopril 40 mg tablet 40 mg PO QAM Qty: 90 1RF amlodipine 10 mg tablet 10 mg PO DAILY 90 Days Qty: 90 3RF quetiapine [Seroquel] 25 mg tablet 25 mg PO BID Qty: 60 5RF multivitamin [Multi-Vitamins] Tablet 1 tab PO QAM thiamine HCl (vitamin B1) [Vitamin B-1] 250 mg Tablet 250 mg PO QAM omega 8-hce-wjj-fish oil [Ultra Beverly-3] 200-300-1,000 mg Capsule 1 cap PO DAILY glipizide 5 mg tablet extended release 24hr 5 mg PO DAILY Discharge Orders: Discharge ED (Routine); Ordered 12/29/23 Ordered By: Ifeanyi Higgins Referrals: Amie Aaron DO [Primary Care Provider] - Discharge Diet: Usual diet Discharge Activity: Increase activity as tolerated Patient Instructions: Chest Pain (ED) Activity Restrictions/Additional Instructions: Follow-up with primary care office in the morning to discuss other evaluation and treatment options. Coding Level of Care Code ED Biomedical Equipment Support Specialist for Talon Bernal
[2023-12-29 18:22] VITALS: BP 207/91; PULSE 71; RESP 18; O2SAT 97
[2023-12-29 18:30] LABS: Basophils # 0.1 10^3/uL (0.0-0.1); Basophils % 0.8 %; Eosinophils # 0.2 10^3/uL (0.0-0.8); Eosinophils % 2.9 %; Hematocrit 42.6 % (36-47); Lymphocytes % 29.8 %; Mean Corpuscular HGB Conc 33.3 g/dL (30-55); Mean Corpuscular Hemoglobin 28.6 pg (27-33); Mean Corpuscular Volume 85.7 fl (85-98); Mean Platelet Volume 8.4 fL (7.4-10.4); Monocytes # 0.4 10^3/uL (0.2-0.9); Monocytes % 6.6 %; Neutrophils # 3.96 10^3/uL (1.8-7.7); Neutrophils % 59.7 %; Nucleated Red Blood Cells % 0 %; Platelet Count 285 10^3/cmm (157-399); Red Blood Count 4.97 10^6/uL (3.85-5.65); White Blood Count 6.62 10^3/uL (3.29-11.43)
[2023-12-29 18:40] VITALS: BP 195/115; PULSE 70; RESP 17; O2SAT 96
[2023-12-29 18:54] LABS: Alanine Aminotransferase 18 U/L (0-33); Albumin Level 4.5 g/dL (3.5-5.2); Alkaline Phosphatase 145 U/L (35-105); Anion Gap 14.9 (5-19); Aspartate Amino Transferase 19 U/L (0-32); Blood Urea Nitrogen 8 mg/dL (8-23); Carbon Dioxide 25 mmol/L (22-29); Chloride 105 mmol/L (98-107); Creatinine Clr Calc Pharmacy 78.4832; Globulin 2.5 g/dL (1.3-4.6); Glucose 154 mg/dL (65-115); Lipase 48 U/L (13-60); Osmolality Calculated 293 mOsm/kg (285-295); Potassium 3.9 mmol/L (3.5-5.1); Sodium 141 mmol/L (136-145); Total Bilirubin 0.7 mg/dL (0.15-1.2)
[2023-12-29 18:55] LABS: Troponin(5th) Baseline 8 ng/L (0-10)
[2023-12-29 18:57] LABS: Add Urine Microscopic? NO; Charge for UA Resulting for Rev
[2023-12-29 18:59] LABS: Bilirubin Urine Neg (Negative); Blood Urine Neg (Negative); Glucose Urine UA Norm (Normal); Ketones Urine Negative (Negative); Leukocyte Esterase Urine Negative (Negative); Nitrate Urine Negative (Negative); Protein Urine Neg (Negative); Urine Appearance Clear (CLEAR); Urine Color Light yellow (Yellow); Urobilinogen Urine Neg (Negative); pH Urine 5 (5-7)
--- NOTE | 2023-12-29 19:15 | CTR_ITS ---
PROCEDURE INFORMATION: Exam: CT Head Without Contrast Exam date and time: 12/29/2023 7:23 PM Age: 73 years old Clinical indication: Other: General weakness TECHNIQUE: Imaging protocol: Computed tomography of the head without contrast. Radiation optimization: All CT scans at this facility use at least one of these dose optimization techniques: automated exposure control; mA and/or kV adjustment per patient size (includes targeted exams where dose is matched to clinical indication); or iterative reconstruction. COMPARISON: CT head wo con* [id number] 01/26/2023 5:23 AM RADIATION DOSE METRICS: Total DLP (mGy-cm): 958.98 FINDINGS: Brain: No evidence of intra-axial or extra-axial hemorrhage. No mass effect or midline shift. Hopson-white differentiation is maintained. Chronic right basal ganglia lacunar infarct. Basilar cisterns are patent. Cerebral ventricles: No hydrocephalus. Paranasal sinuses: The visualized paranasal sinuses are well aerated. Mastoid air cells: The visualized mastoids and middle ears are clear. Bones/joints: The visualized calvarium and bony orbits are intact. Soft tissues: No gross soft tissue abnormality. CT/CT head wo con* [id number] IMPRESSION: 1. No acute intracranial abnormality. If there is clinical concern for acute ischemia beyond the window for neuro intervention, consider correlation with MRI.
[2023-12-29 20:03] VITALS: BP 180/60; RESP 18; O2SAT 96
== END 2023-12-29 20:05 | disposition home or self-care (01) ==
PROVIDERS: Emergency Provider Nurse Practitioner Family; PCP Family Medicine
DX: R07.9 Chest pain, unspecified (principal); I10 Essential (primary) hypertension; Z86.73 Personal history of transient ischemic attack (TIA), and cerebral infarction without residual deficits; J44.9 Chronic obstructive pulmonary disease, unspecified; E11.9 Type 2 diabetes mellitus without complications
CPT/HCPCS: 70450; 71045; 80053; 81003; 83690; 84443; 84484; 85025; 93005; 99285

== ENCOUNTER 2024-01-27 13:42 | Emergency (ER) | payer MEDICARE, BC, SELFPAY ==
--- NOTE | 2024-01-27 13:43 | ECG_ITS ---
[facility] Test Date: 2024-01-27 Pat Name: Roya Aguilar Department: Room: Gender: Female Bilingual Spanish Inbound Sales: : 1950 Requested By: Gwendolyn Driver Order Number: [id number] Frederick MD: Garret Redding M.D. Measurements Intervals [place] Rate: 72 P: 67 GA: 140 QRS: 5 QRSD: 74 T: 56 QT: 380 QTc: 419 Interpretive Statements SINUS RHYTHM SEPTAL MYOCARDIAL INFARCTION , PROBABLY OLD [40+ ms Q WAVE IN V1/V2] Compared to ECG 12/29/2023 17:57:26 T-wave abnormality no longer present Myocardial infarct finding still present Electronically Signed On 01-27-2024 17:58:11 CDT by Garret Redding M.D. [id number]
--- NOTE | 2024-01-27 13:43 | XRR_ITS ---
PROCEDURE INFORMATION: Exam: XR Chest Exam date and time: 01/27/2024 1:50 PM Age: 73 years old Clinical indication: Pain; Angina pectoris; Additional info: Cp TECHNIQUE: Imaging protocol: Radiologic exam of the chest. Views: 1 view. COMPARISON: CR (CHEST, ) 12/29/2023 6:22 PM FINDINGS: Lungs: No consolidation. Pleural spaces: No pleural effusion. No pneumothorax. Heart/Mediastinum: No cardiomegaly. Bones/joints: No acute findings. XR/XR chest 1V portable [id number] IMPRESSION: No acute findings.
[2024-01-27 14:08] VITALS: BP 191/92; PULSE 82; RESP 16; TEMP 36.6; O2SAT 99
[2024-01-27 14:35] LABS: Basophils % 0.7 %; Eosinophils # 0.1 10^3/uL (0.0-0.8); Eosinophils % 2.3 %; Hematocrit 43.9 % (36-47); Lymphocytes # 1.6 10^3/uL (0.8-4.8); Lymphocytes % 28.1 %; Mean Corpuscular HGB Conc 32.6 g/dL (30-55); Mean Corpuscular Hemoglobin 29.1 pg (27-33); Mean Corpuscular Volume 89.4 fl (85-98); Mean Platelet Volume 8.7 fL (7.4-10.4); Monocytes # 0.3 10^3/uL (0.2-0.9); Monocytes % 5.6 %; Neutrophils # 3.59 10^3/uL (1.8-7.7); Neutrophils % 62.9 %; Nucleated Red Blood Cells % 0 %; Platelet Count 298 10^3/cmm (157-399); Red Blood Count 4.91 10^6/uL (3.85-5.65); Red Cell Distribution Width 13.3 % (12.1-15.1)
[2024-01-27 14:50] LABS: INR 0.87 (0.8-1.2)
[2024-01-27 14:55] LABS: Troponin(5th) Baseline 7 ng/L (0-10)
[2024-01-27 15:07] LABS: Alanine Aminotransferase 26 U/L (0-33); Albumin Level 4.4 g/dL (3.5-5.2); Alkaline Phosphatase 140 U/L (35-105); Anion Gap 14.8 (5-19); Aspartate Amino Transferase 27 U/L (0-32); Blood Urea Nitrogen 8 mg/dL (8-23); Carbon Dioxide 27 mmol/L (22-29); Chloride 101 mmol/L (98-107); Creatinine Clr Calc Pharmacy 67.2712; Globulin 2.6 g/dL (1.3-4.6); Glucose 174 mg/dL (65-115); Lipase 56 U/L (13-60); Osmolality Calculated 291 mOsm/kg (285-295); Potassium 3.8 mmol/L (3.5-5.1); Sodium 139 mmol/L (136-145); Thyroid Stimulating Hormone 1.21 uIU/mL (0.27-4.20); Total Bilirubin 0.9 mg/dL (0.15-1.2)
--- NOTE | 2024-01-27 15:54 | ECG_ITS ---
[facility] Test Date: 2024-01-27 Pat Name: Roya Aguilar Department: Room: Gender: Female Trench Pipe Layer: : 1950 Requested By: Gwendolyn Driver Order Number: [id number] Frederick MD: Garret Redding M.D. Measurements Intervals [place] Rate: 63 P: 57 OR: 148 QRS: 16 QRSD: 72 T: 35 QT: 397 QTc: 408 Interpretive Statements SINUS RHYTHM SEPTAL MYOCARDIAL INFARCTION , PROBABLY OLD [40+ ms Q WAVE IN V1/V2] Compared to ECG 01/27/2024 14:12:37 No significant changes Electronically Signed On 01-27-2024 18:10:42 CDT by Garret Redding M.D. [id number]
--- NOTE | 2024-01-27 16:45 | ED_ITS ---
HPI - Chest Pain 2 General: Chief Complaint: Chest Pain Stated Complaint: weakness Time Seen by Provider: 01/27/24 16:40 Source: patient Mode of arrival: ambulatory Limitations: no limitations History of Present Illness: 73-year-old female who states she has be en having chest pain it has been off and on for months she has been seen here few times states that she had some pain throughout the night that been sharp in nature she states the pain is since resolved she is having no pain currently she denies any worsening improving factors denies any nausea denies any shortness of breath. Associated symptoms: Deny abdominal pain, dyspnea, fever(s), nausea or vomiting Review of Systems 2 Const: Denies: fever(s), chills, body aches or change in appetite ENMT: Denies: throat pain or dental pain Card: Reports: chest pain Resp: Denies: dyspnea GI: Denies: abdominal pain, nausea, vomiting or diarrhea Musc: Denies: neck pain or back pain Skin/Breast: Denies: rash Neuro: Denies: headache(s) PFSH ED 2 PFSH: Medical History (Updated 01/27/24 @ 17:17 by Gwendolyn Driver MD) Anemia Microcytic anemia Stomatitis and mucositis, unspecified Seasonal allergies Essential (primary) hypertension Hypertriglyceridemia TIA (transient ischemic attack) Enrolled in chronic care management COPD (chronic obstructive pulmonary disease) Type 2 diabetes mellitus, without long-term current use of insulin Cognitive impairment Surgical History S/P gastric bypass S/P appendectomy S/P cholecystectomy S/P hernia repair H/O section S/P tonsillectomy and adenoidectomy S/P tubal ligation H/O lithotripsy S/P nasal surgery Family History Father CAD (coronary artery disease) Mother Parkinson disease Stroke Dementia Family/Other Cancer Sister Dementia Other Hypertension Denies family history of Diabetes Clotting disorder Chronic kidney disease (CKD) Suicide Anesthesia complication Bleeding disorder Lung disease Social History Smoking and tobacco/nicotine status: never used tobacco/nicotine Alcohol intake: never Substance/Drug Use: never Marital status: Current occupational status: retired Female Reproductive History: Para: 3 Spontaneous abortions: Yes Physical Exam 2 Const: COMMON NORMALS: no acute distress, patient oriented x3 and healthy appearing HENMT: COMMON NORMALS: normocephalic and atraumatic HEAD & SCALP: n ormocephalic and atraumatic Eye: COMMON NORMALS: conjunctivae normal CONJUNCTIVA: Yes conjunctivae normal Neck/C-Spine: COMMON NORMALS: full ROM and supple Chest: COMMONS NORMALS: normal inspection of the chest and normal palpation of entire chest wall Resp: COMMON NORMALS: normal respiratory effort, No retractions, No use of accessory muscles and clear to auscultation bilaterally AUSCULTATION: clear to auscultation bilaterally Cardio: COMMON NORMALS: regular rate, regular rhythm and No murmurs present (Cardio) RATE: regular rate RHYTHM: regular rhythm GI: COMMON NORMALS: Normal to inspection, nondistended, normoactive bowel sounds present, Soft to palpation, non-tender and no masses PALPATION: Yes Soft to palpation Extremity: COMMON NORMALS: normal to inspection and full ROM Neuro: COMMON NORMALS: patient oriented x3, moves all extremities and no focal motor deficits Psych: COMMON NORMALS: mental status grossly normal, Normal thought process present and cooperative THOUGHT PROCESS: Normal thought process present Skin: COMMON NORMALS: no rashes or lesions noted and no wounds GENERAL SKIN EXAM: no rashes or lesions noted Course 2 Vital Signs: Vital signs: Vital Signs Temperature 97.9 F 01/27/24 14:08 Pulse Rate 66 01/27/24 16:48 Respiratory Rate 16 01/27/24 16:48 Blood Pressure 156/126 01/27/24 16:48 Pulse Oximetry 97 01/27/24 16:48 Oxygen Delivery Me thod Room Air 01/27/24 14:08 MDM - Chest Pain Medical Decision Making Patient presents for chest pains atypical in nature she has been pain-free here her troponins are normal no signs of ACS no signs of dissection or pulm embolism she stable for discharge we will get her cardiology follow-up she is return if worsening she understands agrees to plan Medical Records I reviewed the patient's medical records. Lab Data I reviewed the patient's lab results. 01/27/24 14:24 01/27/24 14:24 Radiology Impressions Chest X-Ray 01/27/24 13:43 IMPRESSION: No acute findings. Laboratory Results WBC 5.70 10^3/uL (3.29-11.43) 01/27/24 14: RBC 4.91 10^6/uL (3.85-5.65) 01/27/24 14:24 Hgb 14.30 g/dL (11.27-16.99) 01/27/24 14:24 Hct 43.9 % (36-47) 01/27/24 14:24 MCV 89.4 fl (85-98) 01/27/24 14:24 MCH 29.1 pg (27-33) 01/27/24 14:24 MCHC 32.6 g/dL (30-55) 01/27/24 14:24 RDW 13.3 % (12.1-15.1) 01/27/24 14:24 Plt Count 298 10^3/cmm (157-399) 01/27/24 14:24 MPV 8.7 fL (7.4-10.4) 01/27/24 14:24 Neut % (Auto) 62.9 % 01/27/24 14:24 Lymph % (Auto) 28.1 % 01/27/24 14:24 [place] % (Auto) 5.6 % 01/27/24 14:24 Eos % (Auto) 2.3 % 01/27/24 14:24 Baso % (Auto) 0.7 % 01/27/24 14:24 Neut # (Auto) 3.59 10^3/uL (1.8-7.7) 01/27/24 14:24 Lymph # (Auto) 1.6 10^3/uL (0.8-4.8) 01/27/24 14:24 [place] # (Auto) 0.3 10^3/uL (0.2-0.9) 01/27/24 14:24 Eos # (Auto) 0.1 10^3/uL (0.0-0.8) 01/27/24 14:24 Baso # (Auto) 0.0 10^3/uL (0.0-0.1) 01/27/24 14:24 Nucleated RBC % (auto) 0 % 01/27/24 14:24 Nucleated RBCs # 0.0 /100WBC 01/27/24 14:24 PT 12.10 SECONDS (12.1-14.9) 01/27/24 14:24 INR 0.87 (0.8-1.2) 01/27/24 14:24 Sodium 139 mmol/L (136-145) 01/27/24 14:24 Potassium 3.8 mmol/L (3.5-5.1) 01/27/24 14:24 Chloride 101 mmol/L (98-107) 01/27/24 14:24 Carbon Dioxide 27 mmol/L (22-29) 01/27/24 14:24 Anion Gap 14.8 (5-19) 01/27/24 14:24 BUN 8 mg/dL (8-23) 01/27/24 14:24 Creatinine 0.6 mg/dL (0.5-0.9) 01/27/24 14:24 GFR Calculation Not Reportable 01/27/24 14:24 Glucose 174 mg/dL (65-115) H 01/27/24 14:24 Calculated Osmolality 291 mOsm/kg (285-295) 01/27/24 14:24 Calcium 10.0 mg/dL (8.5-10.5) 01/27/24 14:24 Total Bilirubin 0.9 mg/dL (0.15-1.2) 01/27/24 14:24 AST 27 U/L (0-32) 01/27/24 14:24 ALT 26 U/L (0-33) 01/27/24 14:24 Alkaline Phosphatase 140 U/L (35-105) H 01/27/24 14:24 Troponin T Baseline 7 ng/L (0-10) 01/27/24 14:24 Troponin T 120 Minute 7.06 ng/L (0-10) 01/27/24 16:31 Delta Troponin T 0.06 ABS# (0-10) 01/27/24 16:31 Total Protein 7.0 g/dL (6.6-8.7) 01/27/24 14:24 Albumin 4.4 g/dL (3.5-5.2) 01/27/24 14:24 Globulin 2.6 g/dL (1.3-4.6) 01/27/24 14:24 Lipase 56 U/L (13-60) 01/27/24 14:24 TSH 1.21 uIU/mL (0.27-4.20) 01/27/24 14:24 All radiology interpretation(s) finalized by discharge EKG Data EKG 1: I personally reviewed and interpreted this EKG as follows: EKG interpretation date: 01/27/24 EKG interpretation time: 14:12 Interpretation: nsr hr [address] or t wave abnormalities qrs 74 qtc 405 Discharge Plan Discharge Patient Disposition: Home Clinical Impression: Chest pain Condition: Stable Prescriptions: No Action aspirin 325 mg tablet 325 mg PO QAM mecobalamin (vitamin B12) 1,000 mcg tablet,disintegrating 1,000 mcg SUBLINGUAL QAM rivastigmine 9.5 mg/24 hour patch 24 hour 1 patch topical DAILY@07 Qty: 90 3RF lisinopril 40 mg tablet 40 mg PO QAM Qty: 90 1RF amlodipine 10 mg tablet 10 mg PO DAILY 90 Days Qty: 90 3RF quetiapine [Seroquel] 25 mg tablet 25 mg PO BID Qty: 60 5RF glipizide 5 mg tablet extended release 24hr See Rx Instructions .ROUTE .COMPLEX Qty: 30 0RF Dose Instruction: Take 1 tablet by mouth once daily Rx Instructions: Take 1 tablet by mouth once daily multivitamin [Multi-Vitamins] Tablet 1 tab PO QAM thiamine HCl (vitamin B1) [Vitamin B-1] 250 mg Tablet 250 mg PO QAM omega 1-hgo-hro-fish oil [Ultra Roosevelt-3] 200-300-1,000 mg Capsule 1 cap PO DAILY Discharge Orders: Discharge ED (Routine); Ordered 01/27/24 Ordered By: Gwendolyn Driver Referrals: Garret Redding MD [Physician] - 1-3 days Amie Aaron DO [Primary Care Provider] - Discharge Diet: Advance as tolerated Discharge Activity: Resume usual activity Patient Instructions: Chest Pain (ED) Coding Level of Care Code ED Product Info Specialist for Chg Gabe
[2024-01-27 16:48] VITALS: BP 156/126; PULSE 66; RESP 16; O2SAT 97
[2024-01-27 17:02] LABS: Troponin 5 2HR 7.06 ng/L (0-10); Troponin 5 2HR Delta 0.06 ABS# (0-10)
[2024-01-27 17:23] VITALS: BP 177/85; PULSE 60; RESP 16; O2SAT 96
--- NOTE | 2024-01-28 11:05 | DCPLANNER ---
Message sent to Cardiology for follow up on Chest pain
== END 2024-01-27 17:24 | disposition home or self-care (01) ==
PROVIDERS: Emergency Provider Emergency Medicine; PCP Family Medicine
DX: R07.9 Chest pain, unspecified (principal); Z79.82 Long term (current) use of aspirin; Z79.84 Long term (current) use of oral hypoglycemic drugs; I10 Essential (primary) hypertension; Z86.73 Personal history of transient ischemic attack (TIA), and cerebral infarction without residual deficits; J44.9 Chronic obstructive pulmonary disease, unspecified; E11.9 Type 2 diabetes mellitus without complications
CPT/HCPCS: 36415; 71045; 80053; 83690; 84443; 84484; 85025; 85610; 93005; 99285

== ENCOUNTER → 2024-02-04 11:08 | Outpatient (BNVA) | payer MEDICARE, BC, SELFPAY | PROVIDERS: PCP Family Medicine; Visit Provider Nurse Practitioner Family | DX: R07.2 Precordial pain (principal); G30.9 Alzheimer's disease, unspecified; F02.80 Dementia in other diseases classified elsewhere, unspecified severity, without behavioral disturbance, psychotic disturbance, mood disturbance, and anxiety; I10 Essential (primary) hypertension | CPT/HCPCS: 93005 ==

== ENCOUNTER → 2024-02-13 15:14 | Outpatient (BNVA) | payer MEDICARE, BC, SELFPAY | PROVIDERS: PCP Family Medicine; Visit Provider Specialist | DX: R41.3 Other amnesia (principal); G30.9 Alzheimer's disease, unspecified; F02.80 Dementia in other diseases classified elsewhere, unspecified severity, without behavioral disturbance, psychotic disturbance, mood disturbance, and anxiety | CPT/HCPCS: 99214; 99215 ==

== ENCOUNTER → 2024-02-26 15:04 | Outpatient (BNVA) | payer MEDICARE, BC, SELFPAY | PROVIDERS: PCP Family Medicine; Visit Provider Internal Medicine Cardiovascular Disease | DX: R07.9 Chest pain, unspecified (principal); E11.9 Type 2 diabetes mellitus without complications; Z79.84 Long term (current) use of oral hypoglycemic drugs; R94.31 Abnormal electrocardiogram [ECG] [EKG]; I10 Essential (primary) hypertension; E78.1 Pure hyperglyceridemia | CPT/HCPCS: 99214 ==

== ENCOUNTER 2024-02-27 14:19 | Outpatient (CLI) | payer MEDICARE, BC, SELFPAY ==
--- NOTE | 2024-02-27 14:30 | MM_ITS ---
WS: [id number] BILATERAL 3D TOMOSYNTHESIS DIGITAL SCREENING MAMMOGRAPHY WITH CAD CLINICAL INFORMATION: N63.20 - Unspecified lump in the left breast, unspecified... HISTORY: Screening mammogram. LEFT breast lump. COMPARISON: 01/20/2020 TECHNIQUE: Bilateral CC and MLO views. FINDINGS: Scattered fibroglandular densities bilaterally. No suspicious focal mass, asymmetry, calcifications, or architectural distortion. No evidence of malignancy. A few incidental punctate calcifications. Pal pable marker upper outer LEFT breast. No visualized underlying parenchymal lesions. Ultrasound of thi s area is pending. RIGHT breast is unchanged and unremarkable. ULTRASOUND BREAST LEFT TECHNIQUE: Ultrasound left breast focused area of concern. CLINICAL INFORMATION: N63.20 - Unspecified lump in the left breast, unspecified... FINDINGS: Ultrasound LEFT breast in the area of palpable concern at the 3 o'clock position 10 cm from the nippl e. Normal underlying parenchymal tissue. No cystic or solid lesions. No suspicious findings in the ar ea of concern. MM/[place] [id number] IMPRESSION: BI-RADS: 2-Benign FOLLOW UP: 1 Year Follow-up Recommend return to annual screening mammography.
--- NOTE | 2024-02-27 14:45 | US_ITS ---
WS: [id number] BILATERAL 3D TOMOSYNTHESIS DIGITAL SCREENING MAMMOGRAPHY WITH CAD CLINICAL INFORMATION: N63.20 - Unspecified lump in the left breast, unspecified... HISTORY: Screening mammogram. LEFT breast lump. COMPARISON: 01/20/2020 TECHNIQUE: Bilateral CC and MLO views. FINDINGS: Scattered fibroglandular densities bilaterally. No suspicious focal mass, asymmetry, calcifications, or architectural distortion. No evidence of malignancy. A few incidental punctate calcifications. Pal pable marker upper outer LEFT breast. No visualized underlying parenchymal lesions. Ultrasound of thi s area is pending. RIGHT breast is unchanged and unremarkable. ULTRASOUND BREAST LEFT TECHNIQUE: Ultrasound left breast focused area of concern. CLINICAL INFORMATION: N63.20 - Unspecified lump in the left breast, unspecified... FINDINGS: Ultrasound LEFT breast in the area of palpable concern at the 3 o'clock position 10 cm from the nippl e. Normal underlying parenchymal tissue. No cystic or solid lesions. No suspicious findings in the ar ea of concern. US/US breast LT limited* [id number] IMPRESSION: BI-RADS: 2-Benign FOLLOW UP: 1 Year Follow-up Recommend return to annual screening mammography.
== END 2024-02-27 14:20 | disposition home or self-care (01) ==
LOC: RAD 14:20
PROVIDERS: PCP Family Medicine; Visit Provider Specialist
DX: N63.42 Unspecified lump in left breast, subareolar; R92.323 Mammographic fibroglandular density, bilateral breasts; R92.1 Mammographic calcification found on diagnostic imaging of breast
CPT/HCPCS: 76642; 77062; G0279

== ENCOUNTER 2024-03-05 08:33 | Outpatient (CLI) | payer MEDICARE, BC, SELFPAY ==
[2024-03-05 09:18] LABS: Basophils # 0.1 10^3/uL (0.0-0.1); Basophils % 0.8 %; Eosinophils # 0.2 10^3/uL (0.0-0.8); Eosinophils % 2.9 %; Hematocrit 42.7 % (36-47); Lymphocytes # 1.7 10^3/uL (0.8-4.8); Lymphocytes % 25.6 %; Mean Corpuscular Hemoglobin 29.3 pg (27-33); Mean Corpuscular Volume 88.6 fl (85-98); Mean Platelet Volume 8.7 fL (7.4-10.4); Monocytes # 0.5 10^3/uL (0.2-0.9); Monocytes % 6.8 %; Neutrophils # 4.19 10^3/uL (1.8-7.7); Neutrophils % 63.7 %; Nucleated Red Blood Cells % 0 %; Platelet Count 267 10^3/cmm (157-399); Red Blood Count 4.82 10^6/uL (3.85-5.65); Red Cell Distribution Width 12.6 % (12.1-15.1); White Blood Count 6.57 10^3/uL (3.29-11.43)
[2024-03-05 09:39] LABS: INR 0.98 (0.8-1.2)
[2024-03-05 09:44] LABS: Anion Gap 12.7 (5-19); Blood Urea Nitrogen 13 mg/dL (8-23); Calcium 9.4 mg/dL (8.5-10.5); Carbon Dioxide 27 mmol/L (22-29); Chloride 106 mmol/L (98-107); Glucose 146 mg/dL (65-115); Osmolality Calculated 295 mOsm/kg (285-295); Potassium 4.7 mmol/L (3.5-5.1); Sodium 141 mmol/L (136-145)
== END 2024-03-05 08:34 | disposition home or self-care (01) ==
LOC: LAB 08:34
PROVIDERS: PCP Family Medicine; Visit Provider Internal Medicine Cardiovascular Disease
DX: R06.02 Shortness of breath (principal); I48.91 Unspecified atrial fibrillation; Z79.01 Long term (current) use of anticoagulants; I25.118 Atherosclerotic heart disease of native coronary artery with other forms of angina pectoris
CPT/HCPCS: 80048; 80503; 85025; 85610; 86850; 86870; 86900; 86902; 86920

== ENCOUNTER 2024-03-09 07:13 | Outpatient (CLI) | payer MEDICARE, BC, SELFPAY ==
[2024-03-09] VITALS (53 sets, daily range): BP systolic 91–140; BP diastolic 48–76; PULSE 51–97; RESP 12–28; TEMP 36.5; O2SAT 94–100; BMI 31.1
--- NOTE | 2024-03-09 07:30 | XACV_ITS ---
Exam Room: 2 Ht: 147 cm Wt: 68 kg BSA: 1.69 m2 Gender: Female : 1950 Any Known Allergies: Other Exam Priority: Routine Procedure(s): Procedure Description: Diagnostic procedure Procedure Description: Left Heart Catheterization Procedure Description: Coronary Angiography Vahid PALACIOS; Diagnostic Cath Status: Elective Diagnostic Findings * The left main is a medium caliber vessel with no significant stenotic lesions. * The left anterior descending artery is a medium caliber vessel which appears to taper off to his the LV apex. The proximal to mid left anterior sending artery was found to have 20 to 30% diffuse disease with no significant stenotic lesions. The first and second diagonal branches were found to be relatively small caliber vessel with a 30 to 40% diffuse irregular narrowing in the proximal segments. No significant stenotic lesions were noted.. * The left circumflex artery is a small to medium caliber non dominant vessel with no significant stenotic lesions. * The right coronary artery has a high and posterior takeoff. It is the dominant vessel and was found to have no significant stenotic lesions. Conclusions 1. 73-year-old white female with history of hypertension, type 2 diabetes, dyslipidemia and dementia presents with recurrent episodes of chest pains. She had a Myocardial perfusion imaging last year which was unremarkable. 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 2. Because of the patient's ongoing symptoms and the multiple risk factors, in order to further evaluate the coronary status, a cardiac catheterization was recommended. Patient underwent left heart catheterization with left and right coronary angiogram today. The findings are as follows. 3. 1. Normal left main with no significant stenotic lesions 2. Mild diffuse disease in the proximal and mid left anterior descending artery. Mild disease in the proximal segments of the first and second diagonal branches. 3. No significant lesions in the circumflex artery. 4. Normal right coronary artery with a high and posterior takeoff. No significant stenotic lesions. LVEDP of 12 mmHg. Diagnostic RX Recommendation: medical therapy and/or counseling LV EDP: 12 mmHg Left Ventriculography Findings: * LV gram was not performed to minimize the dye load. LVEDP was 12 mmHg. Pressures Phase:Rest AO : 102 / 60 ( 77 ) @ 9:23:00 AM 93 / 76 ( 85 ) @ 9:25:00 AM 111 / 54 ( 75 ) @ 9:28:00 AM 110 / 52 ( 75 ) @ 9:28:00 AM 92 / 63 ( 77 ) @ 9:34:00 AM LV : 113 / -6 / 12 @ 9:28:00 AM 113 / -6 / 12 @ 9:28:00 AM Valves Phase:DefaultPhase AV : 3.0 @ 8:47:51 AM 3.0 @ 8:47:51 AM AV Mean Gradient: 11.0 @ 8:47:51 AM Clinical Evaluation EBL: 5mL-10mL Procedural Details Procedure Consent Obtained. Current Diagnosis : Chest Pain. Pre-Procedure Time Out. Identified patient by full name and date of as verbalized by the patient/guarantor. Does the consent match the physician's order: Yes. Accurate & Complete Informed Consent: Yes. Inpatient/Outpatient History & Physical on Chart: Yes. If H&P is completed, is and addenduem needed: No; If yes, is the addendum complete: N/A. Visualize and Verify Site with Patient/Guarantor: N/A. Relevant Radiology Images available: Yes. Pre-op teaching completed and patient verbalized understanding. The risks, benefits, and alternatives of sedation and/or procedure were discussed by physician. The patient agrees to continue. Procedure started. [facility] Clinical Fraility Score: 3: Managing Well. Fur Scraper Indications: Suspected CAD. Chest Pain Symptom Assessment: Atypical Angina. Correct patient, site and procedure confirmed by cath team. Current diagnosis: Chest Pain. PERRLA. Strong, equal hand entry level marketing representative bilaterally. Lungs clear x 5 lobes. IV Site on Arrival: 18 gauge in the left anticubital. IV Fluids: 0.9% NaCl at KVO. 0 mL infused prior to labor gang supervisor. Pre Procedural Pulses: right radial was 3+. Oxygen started at 2liters/min via nasal canula. right groin was prepped with chloroprep then draped in the usual sterile fashion. right radial was prepped with chloroprep then draped in the usual sterile fashion. Physician notified. Baseline sample Acquired. HR: 70 BPM. Physician arrived. Physician scrubbed in. Immediate Pre-Procedure Time Out. Correct Patient: Yes; Correct Procedure: Yes; Correct Site: Yes; Correct Patient Position: Yes; Correct Supplies: Yes; Dried Flammable Prep: Yes; Blood Products Available: N/A;. Lidocaine 1% infiltrated to the right radial. Arterial access obtained. Contrast hand injected through the catheter. Contrast hand injected through the sheath. Contrast hand injected through the catheter. A 5 monegasque Jovany catheter in over wire. Multiple views taken of left coronary artery. Catheter redirected to the RCA. EDP Sample taken: LV 113/-7,12; HR: 80 BPM; SpO2: 96%. Pullback taken: LV 113/-7,12; AO 111/54(75); Mean: 11mmHg, Peak to Peak: 3mmHg, SEP: 8sec/min; HR: 80 BPM; SpO2: 96%. Catheter removed over the exchange wire. A 5 monegasque JR4 catheter in over wire. Catheter removed over the exchange wire. A 5 monegasque 3DRC catheter in over wire. Multiple views taken of right coronary artery. Catheter removed over the exchange wire. Physician scrubbed out. Physician review of cine films. A TR Band was successful obtaining hemostatsis at the Right Femoral artery insertion site. Post Procedure: Pulses reassessed and unchanged. PERRLA. Strong, equal hand entry level marketing representative bilaterally. No VTE prophylaxis required. Medication's Wasted: Lidocaine 1% = 18 mL. Medication's Wasted: Other = Fentanyl 75mcg. Medication's Wasted: Heparin = 1000 units. Medication's Wasted: Nitro = 49.8 mcg. Total IV fluids: 273 mL. Vital chart was stopped. Complications: None. Estimated blood loss: 5mL-10mL. Responsiveness - Normal response to verbal stimuli; alert and oriented, PERRLA. Airway - Unaffected, no intervention required; spontaneous ventilation. Circulation: W/N/L, pulses unchanged. Nausea/Vomiting: No. Procedure completed. Patient transferred by wheelchair to CPRU. Access Site Site: Right Femoral artery Sheath Size: 6 Fr Hemostasis Method: TR Band Hemostasis Success: Successful Procedure Medications Start: 8:13 AM Stop: 8:13 AM Medication: Versed 1 mg and Fentanyl 25 mcg Amount: 1 Route: I.V. Start: 8:18 AM Stop: 8:18 AM Medication: Nitrogylcerin Amount: 200 mcg Route: I.A. Start: 8:18 AM Stop: 8:18 AM Medication: Verapamil Amount: 5 mg Route: I.A. Start: 8:18 AM Stop: 8:18 AM Medication: Versed Amount: 1 mg Route: I.V. Start: 8:22 AM Stop: 8:22 AM Medication: Heparin Amount: 5000 units Route: I.V. Start: 8:23 AM Stop: 8:23 AM Medication: 0.9% Saline Amount: 250 ml Route: I.V. bolus I, the attending physician, have reviewed and verified all procedure medications. Yes, all medications given per verbal order History/Risk Factors Hypertension: Yes Dyslipidemia: Yes Peripheral Arterial Disease (PAD): No Myocardial Infarction (NM): No Obesity: No Tobacco Use: Never Prior Interventions PCI: No CABG: No Valve Surgery: No Report Signatures Finalized by Dr Garret Redding MD [facility] on 03/09/2024 09:41 AM
--- NOTE | 2024-03-09 07:39 | W.PM.OPSUD ---
Surgery/Procedure H&P Update DATE OF PROCEDURE: March 09, 2024 DATE H&P PERFORMED: 02/26/24 H&P UPDATE INFORMATION: I have reviewed H&P completed within last 30 days, I have examined patient prior to procedure and No changes to prior documentation PREOP DIAGNOSIS: ASHD PRIMARY INDICATION FOR PROCEDURE: Multiple risk factors for coronary artery disease, abnormal EKG, multiple ER visits with chest pain PLANNED PROCEDURE: Operation Date: 03/09/24 08:30 Proposed Procedures p Cardiac Catheterization 77124, R94.31, R09.9(Left) - Garret Redding MD PATIENT REASSESSED PRIOR TO SEDATION, WITH NO CHANGE NOTED: Yes PHYSICAL EXAM: alert, oriented x 3, clear to auscultation bilaterally and regular rate & rhythm AIRWAY EVAL/ANESTHESIA PLAN: normal airway, see other exam findings, ASA III, Monitored Anesthesia, Local Anesthesia, Risks, benefits & alternatives of sedation and/or procedure discussed and Patient agrees to continue as planned
[2024-03-09 07:51] LABS: Glucose Point of Care 133 mg/dL (70-110)
[2024-03-09 13:08] LABS: Glucose Point of Care 118 mg/dL (70-110)
== END 2024-03-09 13:05 | disposition home or self-care (01) ==
PROVIDERS: PCP Family Medicine; Visit Provider Internal Medicine Cardiovascular Disease
DX: I25.118 Atherosclerotic heart disease of native coronary artery with other forms of angina pectoris (principal); I48.91 Unspecified atrial fibrillation; Z86.73 Personal history of transient ischemic attack (TIA), and cerebral infarction without residual deficits; J44.9 Chronic obstructive pulmonary disease, unspecified; E11.9 Type 2 diabetes mellitus without complications; Z82.49 Family history of ischemic heart disease and other diseases of the circulatory system; I10 Essential (primary) hypertension
CPT/HCPCS: 36415; 36416; 82962; 93458; 96374; 96375; 99152; 99153; C1769; C1887; C1894; J1644; J2250; J3010; J3490; J7030; Q0163; Q9967

== ENCOUNTER → 2024-03-11 12:29 | Outpatient (BNVA) | payer MEDICARE, BC, SELFPAY | PROVIDERS: Visit Provider Specialist | DX: G30.9 Alzheimer's disease, unspecified (principal); F02.80 Dementia in other diseases classified elsewhere, unspecified severity, without behavioral disturbance, psychotic disturbance, mood disturbance, and anxiety | CPT/HCPCS: 99214; 99215 ==

== ENCOUNTER → 2024-04-02 14:17 | Outpatient (BNVA) | payer MEDICARE, BC, SELFPAY | PROVIDERS: PCP Family Medicine; Visit Provider Nurse Practitioner Family | DX: Z09 Encounter for follow-up examination after completed treatment for conditions other than malignant neoplasm (principal); I10 Essential (primary) hypertension | CPT/HCPCS: 36415; 80048; 99214 ==

== ENCOUNTER → 2024-04-22 11:26 | Outpatient (BNVA) | payer MEDICARE, BC, SELFPAY | PROVIDERS: PCP Family Medicine; Visit Provider Family Medicine | DX: I50.9 Heart failure, unspecified (principal); E11.9 Type 2 diabetes mellitus without complications | CPT/HCPCS: 80061; 83036 ==

== ENCOUNTER → 2024-04-30 14:27 | Outpatient (BNVA) | payer MEDICARE, BC, SELFPAY | PROVIDERS: PCP Family Medicine; Visit Provider Specialist | DX: G30.9 Alzheimer's disease, unspecified (principal); F02.80 Dementia in other diseases classified elsewhere, unspecified severity, without behavioral disturbance, psychotic disturbance, mood disturbance, and anxiety | CPT/HCPCS: 99213; 99214 ==

== ENCOUNTER → 2024-05-13 09:29 | Outpatient (BNVA) | payer MEDICARE, BC, SELFPAY | PROVIDERS: PCP Family Medicine; Visit Provider Specialist | DX: G30.9 Alzheimer's disease, unspecified (principal); F02.80 Dementia in other diseases classified elsewhere, unspecified severity, without behavioral disturbance, psychotic disturbance, mood disturbance, and anxiety | CPT/HCPCS: 99212 ==

== ENCOUNTER → 2024-07-02 11:25 | Outpatient (BNVA) | payer MEDICARE, BC, SELFPAY | PROVIDERS: PCP Family Medicine; Visit Provider Internal Medicine Cardiovascular Disease | DX: E78.5 Hyperlipidemia, unspecified (principal) | CPT/HCPCS: 36415; 80061; 80076 ==

== ENCOUNTER → 2024-10-22 09:41 | Outpatient (BNVA) | payer MEDICARE, BC, SELFPAY | PROVIDERS: PCP Family Medicine; Visit Provider Family Medicine | DX: E11.9 Type 2 diabetes mellitus without complications (principal) | CPT/HCPCS: 80048; 83036; 85025 ==

== ENCOUNTER → 2024-12-02 13:52 | Outpatient (BNVA) | payer MEDICARE, BC, SELFPAY | PROVIDERS: PCP Family Medicine; Visit Provider Specialist | DX: G30.9 Alzheimer's disease, unspecified (principal); F02.80 Dementia in other diseases classified elsewhere, unspecified severity, without behavioral disturbance, psychotic disturbance, mood disturbance, and anxiety | CPT/HCPCS: 99213 ==

== ENCOUNTER → 2025-02-04 14:48 | Outpatient (BNVA) | payer MEDICARE, BC, SELFPAY | PROVIDERS: PCP Family Medicine; Visit Provider Internal Medicine Cardiovascular Disease | DX: I25.118 Atherosclerotic heart disease of native coronary artery with other forms of angina pectoris (principal); I47.10 Supraventricular tachycardia, unspecified; E78.1 Pure hyperglyceridemia; I10 Essential (primary) hypertension; E11.9 Type 2 diabetes mellitus without complications; M79.89 Other specified soft tissue disorders | CPT/HCPCS: 99214 ==

== ENCOUNTER → 2025-02-16 09:59 | Outpatient (BNVA) | payer MEDICARE, BC, SELFPAY | PROVIDERS: PCP Family Medicine; Visit Provider Family Medicine | DX: E11.9 Type 2 diabetes mellitus without complications (principal) | CPT/HCPCS: 80048; 83036 ==

== ENCOUNTER → 2025-02-24 11:50 | Outpatient (BNVA) | payer MEDICARE, BC, SELFPAY | PROVIDERS: Family Provider Family Medicine; PCP Family Medicine; Referring Provider Family Medicine; Visit Provider Family Medicine | DX: E87.6 Hypokalemia (principal) | CPT/HCPCS: 80048 ==

== ENCOUNTER → 2025-03-10 09:49 | Outpatient (BNVA) | payer MEDICARE, BC, SELFPAY | PROVIDERS: Family Provider Family Medicine; PCP Family Medicine; Visit Provider Family Medicine | DX: E87.6 Hypokalemia (principal) | CPT/HCPCS: 80048 ==

== ENCOUNTER → 2025-05-27 09:48 | Outpatient (BNVA) | payer MEDICARE, BC, SELFPAY | PROVIDERS: PCP Family Medicine; Visit Provider Family Medicine | DX: E11.9 Type 2 diabetes mellitus without complications (principal) | CPT/HCPCS: 80048; 80061; 83036 ==

== ENCOUNTER → 2025-06-22 14:07 | Outpatient (BNVA) | payer MEDICARE, BC, SELFPAY | PROVIDERS: PCP Family Medicine; Visit Provider Specialist | DX: G30.9 Alzheimer's disease, unspecified (principal); F02.80 Dementia in other diseases classified elsewhere, unspecified severity, without behavioral disturbance, psychotic disturbance, mood disturbance, and anxiety; R55 Syncope and collapse | CPT/HCPCS: 99214 ==

== ENCOUNTER 2025-07-31 16:58 | Emergency (ER) | payer MEDICARE, BC, SELFPAY ==
--- NOTE | 2025-07-31 16:30 | XRR_ITS ---
PROCEDURE INFORMATION: Exam: XR Chest Exam date and time: 07/31/2025 5:07 PM Age: 75 years old Clinical indication: Pain; Chest pressure; Additional info: Chest pain TECHNIQUE: Imaging protocol: Radiologic exam of the chest. Views: 1 view. COMPARISON: CR XR chest 1V portable [id number] 01/27/2024 1:50 PM FINDINGS: Lungs: Unremarkable. No consolidation. Pleural spaces: Unremarkable. No pleural effusion. No pneumothorax. Heart/Mediastinum: Unremarkable. No cardiomegaly. Bones/joints: Unremarkable. XR/XR chest 1V portable [id number] IMPRESSION: No acute findings.
[2025-07-31 16:58] VITALS: BP 139/69; PULSE 60; RESP 15; TEMP 36.9; O2SAT 99; BMI 29.5
--- NOTE | 2025-07-31 17:01 | ECG_ITS ---
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 Measurements Intervals [place] Rate: 56 P: 42 ME: 163 QRS: -7 QRSD: 86 T: 22 QT: 429 QTc: 416 Interpretive Statements SINUS BRADYCARDIA LOW QRS VOLTAGE IN PRECORDIAL LEADS [QRS DEFLECTION < 1.0 mV IN CHEST LEADS] MINIMAL VOLTAGE CRITERIA FOR LVH, CONSIDER NORMAL VARIANT [MEETS CRITERIA IN ONE OF: R(aVL), S(V1), R(V5), R(V5/V6)+S(V1)] POSSIBLE ANTERIOR MYOCARDIAL INFARCTION , PROBABLY OLD [30 ms Q WAVE IN V3/V4, OR R < 0.2 mV IN V4] POSSIBLE INFERIOR INFARCT, PROBABLY OLD Compared to ECG 01/27/2024 15:54:16 Low QRS voltage now present INFERIOR INFARCT FINDING NEW Electronically Signed On 08-01-2025 15:19:05 MILEAGE CLERK by Umer Trinidad M.D. [email or web address]
--- OUTSIDE RECORDS SUMMARY | 2025-07-31 17:04 | XMS_ITS | Clinical Summary ---
Author Organization [facility] Address [address] [place] [address] Phone Care Team Providers Care Industrial Electrical Engineer Name Role Phone Unavailable Primary Care Provider Unavailabl e Social History Tobacco Use Types Packs/Day Years Used Date Smoking Tobacco: Never Assessed Comments Unknown Sex and Gender Information Value Date Recorded Sex Assigned at Not on file Legal Sex Female 9:15 AM CDT Gender Identity Not on file Sexual Orientation Not on file Plan of Treatment Health Maintenance Due Date Last Done Comments DTAP/TDAP/TD VACCINES (1 - Tdap) 1969 COLORECTAL SCREENING 1995 Colorectal Cancer Screening 1995 FIT-DNA Q 3 years 1995 FIT/FOBT Q 1 year 1995 Flex Sig/CT Colonography Q 5 years 1995 PNEUMOCOCCAL VACCINE 50+ YEARS (1 of 1 - PCV) 05/28/20 00 ZOSTER VACCINE (1 of 2) 2000 OSTEOPOROSIS SCREENING 2015 INFLUENZA VACCINE (#1) 2025 RSV VACCINE (60+ or ) (1 - 1-dose 75+ series) 2025 Insurance [facility] FEDERAL MEDICARE PART A AND B
--- NOTE | 2025-07-31 17:08 | W.ED.CHESTPA ---
HPI - Chest Pain General: Chief Complaint: Chest Pain Stated Complaint: chest pain History of Present Illness: 75-year-old female with a history of significant dementia had mentioned to her that she had some chest pain earlier today. She is not able to give any further history. She has a history of ablation several decades ago she has not had any further tachyarrhythmias no known history of coronary disease no previous interventions stents angiograms stress testing. She does take aspirin daily she has history hypertension and is diabetic. She denies any chest pain at this time. Related Data Home Medications ?Medication ?Instructions ?Recorded ?Confirmed aspirin 325 mg tablet 325 mg PO QAM 08/08/20 07/29/25 multivitamin 1 tab PO QAM 06/28/23 07/29/25 Previous Rx's ?Medication ?Instructions ?Recorded lorazepam 2 mg/mL oral concentrate 0.25 mg (0.125 mL) PO Q6H PRN 02/25/24 (Lorazepam Intensol) anxiety #30 mL olanzapine 10 mg tablet See Rx Instructions .Route 12/03/24 .COMPLEX #90 tabs rivastigmine 9.5 mg/24 hour See Rx Instructions .Route 12/03/24 transdermal patch .COMPLEX #90 patches rosuvastatin 5 mg tablet See Rx Instructions .Route 01/21/25 .COMPLEX #90 tabs amlodipine 10 mg tablet 10 mg PO DAILY 90 days #90 tabs 02/16/25 glipizide 5 mg tablet, extended 5 mg PO DAILY 90 days #90 tabs 02/16/25 release 24 hr lisinopril 40 mg tablet 40 mg PO QAM 90 days #90 tabs 02/16/25 potassium chloride 8 mEq See Rx Instructions .Route 06/15/25 capsule,extended release .COMPLEX #120 caps Allergies Allergy/AdvReac Type Severity Reaction Status Date / Time baclofen Allergy Unknown Verified 07/29/25 10:52 donepezil Allergy Unknown Verified 07/29/25 10:52 pregabalin (From Lyrica) Allergy Unknown Verified 07/29/25 10:52 tuberculin, purified protein Allergy Unknown Verified 07/29/25 10:52 deriva [facility] PFS: Medical History Anemia Seasonal allergies Essential (primary) hypertension Hypertriglyceridemia TIA (transient ischemic attack) Enrolled in chronic care management COPD (chronic obstructive pulmonary disease) Type 2 diabetes mellitus, without long-term current use of insulin Cognitive impairment Surgical History S/P gastric bypass S/P appendectomy S/P cholecystectomy S/P hernia repair H/O section S/P tonsillectomy and adenoidectomy S/P tubal ligation H/O lithotripsy S/P nasal surgery Family History Father CAD (coronary artery disease) Mother Parkinson disease Stroke Dementia Family/Other Cancer Sister Dementia Other Hypertension Denies family history of Diabetes Clotting disorder Chronic kidney disease (CKD) Suicide Anesthesia complication Bleeding disorder Lung disease Social History Smoking and tobacco/nicotine status: never used tobacco/nicotine Alcohol intake: never Substance/Drug Use: never Marital status: Current occupational status: retired Female Reproductive History: Para: 3 Spontaneous abortions: Yes Physical Exam Const: COMMON NORMALS: no acute distress GENERAL APPEARANCE: cooperative and comfortable ORIENTATION/CONSCIOUSNESS: Yes awake HENMT: COMMON NORMALS: normocephalic, atraumatic and hearing grossly normal bilaterally HEAD & SCALP: normocephalic and atraumatic Resp: COMMON NORMALS: normal respiratory effort, No retractions, No use of accessory muscles and clear to auscultation bilaterally AUSCULTATION: clear to auscultation bilaterally Cardio: COMMON NORMALS: regular rate, regular rhythm and No murmurs present (Cardio) RATE: regular rate RHYTHM: regular rhythm GI: COMMON NORMALS: Soft to palpation and No hepatosplenomegaly present AUSCULTATION: Yes normoactive bowel sounds PALPATION: Yes Soft to palpation, No Tenderness to palpation present (GI), No Guarding due to palpation present (GI) and Yes No hepatosplenomegaly present Extremity: COMMON NORMALS: normal to inspection, capillary refill normal, no clubbing, cyanosis or edema, no calf tenderness and no pedal edema Skin: COMMON NORMALS: no rashes or lesions noted GENERAL SKIN EXAM: no rashes or lesions noted Course Vital Signs: Vital signs: Vital Signs Temperature 98.4 F 07/31/25 16:58 Pulse Rate 63 07/31/25 20:41 Respiratory Rate 18 07/31/25 18:32 Blood Pressure 132/60 07/31/25 19:00 Pulse Oximetry 97 07/31/25 20:41 Oxygen Delivery Me thod Room Air 07/31/25 19:51 MDM - Chest Pain Medical Decision Making 75-year-old female who presented with complaint of chest pain per her caregiver. Could not get any history from her because of her dementia she denied chest pain. Cardiac enzymes are negative EKG does not show any significant change she has not had any tachypnea no hypoxia chest x-ray did not show signs of pneumonia or pneumothorax is no evidence of clinically of PE at this time. Will discharge patient home to follow-up with her primary care doctor. Medical Records I reviewed the patient's medical records. Lab Data I reviewed the patient's lab results. 07/31/25 17:05 07/31/25 17:05 Radiology Impressions Chest X-Ray 07/31/25 16:30 IMPRESSION: No acute findings. Laboratory Results WBC 6.25 10^3/uL (3.29-11.43) 07/31/25 17:05 RBC 4.23 10^6/uL (3.85-5.65) 07/31/25 17:05 Hgb 12.40 g/dL (11.27-16.99) 07/31/25 17:05 Hct 37.0 % (36-47) 07/31/25 17:05 MCV 87.5 fl (85-98) 07/31/25 17:05 MCH 29.3 pg (27-33) 07/31/25 17:05 MCHC 33.5 g/dL (30-55) 07/31/25 17:05 RDW 13.1 % (12.1-15.1) 07/31/25 17:05 Plt Count 200 10^3/cmm (157-399) 07/31/25 17:05 MPV 8.8 fL (7.4-10.4) 07/31/25 17:05 Neut % (Auto) 61.8 % 07/31/25 17:05 Lymph % (Auto) 26.6 % 07/31/25 17:05 Bay % (Auto) 7.5 % 07/31/25 17:05 Eos % (Auto) 2.9 % 07/31/25 17:05 Baso % (Auto) 1.0 % 07/31/25 17:05 Neut # (Auto) 3.87 10^3/uL (1.8-7.7) 07/31/25 17:05 Lymph # (Auto) 1.7 10^3/uL (0.8-4.8) 07/31/25 17:05 Bay # (Auto) 0.5 10^3/uL (0.2-0.9) 07/31/25 17:05 Eos # (Auto) 0.2 10^3/uL (0.0-0.8) 07/31/25 17:05 Baso # (Auto) 0.1 10^3/uL (0.0-0.1) 07/31/25 17:05 Nucleated RBC % (auto) 0 % 07/31/25 17:05 Nucleated RBCs # 0.0 /100WBC 07/31/25 17:05 Sodium 139 mmol/L (136-145) 07/31/25 17:05 Potassium 3.3 mmol/L (3.5-5.1) L 07/31/25 17:05 Chloride 103 mmol/L (98-107) 07/31/25 17:05 Carbon Dioxide 25 mmol/L (22-29) 07/31/25 17:05 Anion Gap 14.3 (5-19) 07/31/25 17:05 BUN 6 mg/dL (8-23) L 07/31/25 17:05 Creatinine 0.8 mg/dL (0.5-0.9) 07/31/25 17:05 GFR Calculation Not Reportable 07/31/25 17:05 Glucose 74 mg/dL (65-115) 07/31/25 17:05 Calculated Osmolality 284 mOsm/kg (285-295) L 07/31/25 17:05 Calcium 9.0 mg/dL (8.5-10.5) 07/31/25 17:05 Total Bilirubin 1.0 mg/dL (0.15-1.2) 07/31/25 17:05 AST 143 U/L (0-32) H 07/31/25 17:05 ALT 99 U/L (0-33) H 07/31/25 17:05 Alkaline Phosphatase 118 U/L (35-105) H 07/31/25 17:05 Troponin T Baseline 9 ng/L (0-10) 07/31/25 17:05 Troponin T 120 Minute 7.57 ng/L (0-10) 07/31/25 19:05 Delta Troponin T -1.43 ABS# (0-10) L 07/31/25 19:05 Total Protein 6.0 g/dL (6.6-8.7) L 07/31/25 17:05 Albumin 4.0 g/dL (3.5-5.2) 07/31/25 17:05 Globulin 2.0 g/dL (1.3-4.6) 07/31/25 17:05 All radiology interpretation(s) finalized by discharge EKG Data EKG 1: I personally reviewed and interpreted this EKG as follows: Interpretation: EKG 07/31/2025 sinus bradycardia rate of 56. Ryan 163 QTc [address] elevation noted. Compared to the EKG 01/27/2024 no acute changes. No STEMI present on today's EKG. EKG 2: I personally reviewed and interpreted this EKG as follows: Interpretation: 07/31/2025 1845 sinus bradycardia rate of 59 QTc [address] changes compared to EKG done earlier same day no significant change Discharge Plan Discharge Patient Disposition: Home Clinical Impression: Atypical chest pain, Alzheimer disease Condition: Stable Prescriptions: No Action aspirin 325 mg tablet 325 mg PO QAM olanzapine 10 mg tablet See Rx Instructions .ROUTE .COMPLEX Qty: 90 3RF Dose Instruction: TAKE 1 TABLET BY MOUTH ONCE DAILY EVERY MORNING Rx Instructions: TAKE 1 TABLET BY MOUTH ONCE DAILY EVERY MORNING rivastigmine 9.5 mg/24 hour patch 24 hour See Rx Instructions .ROUTE .COMPLEX Qty: 90 3RF Dose Instruction: APPLY 1 PATCH TOPICALLY ONCE DAILY AT 7 Rx Instructions: APPLY 1 PATCH TOPICALLY ONCE DAILY AT 7 amlodipine 10 mg tablet 10 mg PO DAILY 90 Days Qty: 90 2RF glipizide 5 mg tablet extended release 24hr 5 mg PO DAILY 90 Days Qty: 90 2RF lisinopril 40 mg tablet 40 mg PO QAM 90 Days Qty: 90 2RF lorazepam [Lorazepam Intensol] 2 mg/mL concentrate 0.25 mg PO Q6H PRN (Reason: anxiety) Qty: 30 0RF rosuvastatin 5 mg tablet See Rx Instructions .ROUTE .COMPLEX Qty: 90 3RF Dose Instruction: TAKE 1 TABLET BY MOUTH ONCE DAILY Rx Instructions: TAKE 1 TABLET BY MOUTH ONCE DAILY potassium chloride 8 mEq capsule, extended release See Rx Instructions .ROUTE .COMPLEX Qty: 120 2RF Dose Instruction: TAKE TWO CAPSULES (16meq) BY MOUTH TWICE DAILY Rx Instructions: TAKE TWO CAPSULES (16meq) BY MOUTH TWICE DAILY multivitamin Tablet 1 tab PO QAM Discharge Orders: Discharge ED (Routine); Ordered 07/31/25 Ordered By: Keith Palomo Referrals: Laurel Browning MD [Primary Care Provider, Family Practice] Discharge Diet: Usual diet Discharge Activity: Resume usual activity Patient Instructions: Chest Pain (ED), Opioid Safety, Pain Management, Patient Portal & [place] Instructions Activity Restrictions/Additional Instructions: Thank you for choosing [facility] for your healthcare needs today. It is very important that you follow up as instructed or that you return to the Emergency Department should you have concerns or if your condition changes or worsens in any way. Emergency department visits are focused on emergent conditions, in some cases you may require further evaluation on an outpatient basis. You were seen in the emergency room with complaints of chest pain. Cardiac enzymes and EKG did not show any acute changes. Continue your current medications and follow-up with your primary care doctor as needed. (Please note that included in your discharge packet is information concerning opioid safety and pain management. This information is given to all patients were discharged from the ER regardless of their discharge diagnosis or the medicines they usually take or are prescribed.) Print Language: Bengali Coding Level of Care Code ED Radiator Core Tester for Talon Bernal Heart Score HEART Score Components History: Slightly Suspicous EKG: Normal Age: 65 or more yrs Risk Factors: >/=3 Risk Factors Troponin: Baseline Trop <16 ng/L HEART Score RESULT HEART Score: 4
[2025-07-31 17:13] LABS: Hematocrit 37.0 % (36-47); Hemoglobin 12.40 g/dL (11.27-16.99); Mean Corpuscular HGB Conc 33.5 g/dL (30-55); Mean Corpuscular Hemoglobin 29.3 pg (27-33); Mean Corpuscular Volume 87.5 fl (85-98); Nucleated Red Blood Cells % 0 %; Platelet Count 200 10^3/cmm (157-399); Red Blood Count 4.23 10^6/uL (3.85-5.65); White Blood Count 6.25 10^3/uL (3.29-11.43)
[2025-07-31 17:43] LABS: Alanine Aminotransferase 99 U/L (0-33); Albumin Level 4.0 g/dL (3.5-5.2); Alkaline Phosphatase 118 U/L (35-105); Anion Gap 14.3 (5-19); Aspartate Amino Transferase 143 U/L (0-32); Blood Urea Nitrogen 6 mg/dL (8-23); Calcium 9.0 mg/dL (8.5-10.5); Carbon Dioxide 25 mmol/L (22-29); Chloride 103 mmol/L (98-107); Creatinine Clr Calc Pharmacy 61.5107; Globulin 2.0 g/dL (1.3-4.6); Glucose 74 mg/dL (65-115); Osmolality Calculated 284 mOsm/kg (285-295); Potassium 3.3 mmol/L (3.5-5.1); Sodium 139 mmol/L (136-145); Total Protein 6.0 g/dL (6.6-8.7)
[2025-07-31 17:44] LABS: Troponin(5th) Baseline 9 ng/L (0-10)
--- NOTE | 2025-07-31 18:30 | ECG_ITS ---
[employer] Test Date: 2025-07-31 Pat Name: Roya Aguilar Department: Room: Gender: Female Cadd Drafter: : 1950 Requested By: Virgil Sweet Order Number: [id number] Frederick MD: Umer Trinidad M.D. Measurements Intervals [place] Rate: 59 P: 43 AR: 171 QRS: -8 QRSD: 84 T: 30 QT: 418 QTc: 415 Interpretive Statements SINUS BRADYCARDIA LOW QRS VOLTAGE IN PRECORDIAL LEADS [QRS DEFLECTION < 1.0 mV IN CHEST LEADS] MINIMAL VOLTAGE CRITERIA FOR LVH, CONSIDER NORMAL VARIANT [MEETS CRITERIA IN ONE OF: R(aVL), S(V1), R(V5), R(V5/V6)+S(V1)] POSSIBLE ANTERIOR MYOCARDIAL INFARCTION , PROBABLY OLD [30 ms Q WAVE IN V3/V4, OR R < 0.2 mV IN V4] T WAVE FLATTENING Compared to ECG 07/31/2025 17:01:19 No significant changes Electronically Signed On 08-01-2025 16:17:41 VARNISHER APPRENTICE by Umer Trinidad M.D. [email or web address]
[2025-07-31 18:32] VITALS: BP 135/64; PULSE 65; RESP 18; O2SAT 99
[2025-07-31 19:00] VITALS: BP 132/60; PULSE 60; O2SAT 95
[2025-07-31 19:49] LABS: Troponin 5 2HR 7.57 ng/L (0-10)
[2025-07-31 19:51] VITALS: PULSE 59; O2SAT 95
[2025-07-31 19:52] LABS: Troponin 5 2HR Delta -1.43 ABS# (0-10)
[2025-07-31 20:41] VITALS: PULSE 63; O2SAT 97
== END 2025-07-31 20:43 | disposition home or self-care (01) ==
PROVIDERS: Emergency Provider Family Medicine; PCP Family Medicine
DX: R07.89 Other chest pain (principal); G30.9 Alzheimer's disease, unspecified; F02.80 Dementia in other diseases classified elsewhere, unspecified severity, without behavioral disturbance, psychotic disturbance, mood disturbance, and anxiety; J44.9 Chronic obstructive pulmonary disease, unspecified; E11.9 Type 2 diabetes mellitus without complications; I10 Essential (primary) hypertension; Z86.73 Personal history of transient ischemic attack (TIA), and cerebral infarction without residual deficits
CPT/HCPCS: 36415; 71045; 80053; 84484; 85025; 93005; 99285

== ENCOUNTER → 2025-08-19 10:17 | Outpatient (BNVA) | payer MEDICARE, BC, SELFPAY | PROVIDERS: PCP Family Medicine; Visit Provider Nurse Practitioner Family | DX: R07.9 Chest pain, unspecified (principal); I25.10 Atherosclerotic heart disease of native coronary artery without angina pectoris; I10 Essential (primary) hypertension; E78.1 Pure hyperglyceridemia | CPT/HCPCS: 99214 ==

== ENCOUNTER → 2025-08-26 10:19 | Outpatient (BNVA) | payer MEDICARE, BC, SELFPAY | PROVIDERS: PCP Family Medicine; Visit Provider Family Medicine | DX: I10 Essential (primary) hypertension (principal); E11.9 Type 2 diabetes mellitus without complications | CPT/HCPCS: 80053; 83036 ==

== ENCOUNTER 2025-09-08 18:32 | Emergency (ER) | payer MEDICARE, BC, SELFPAY ==
[2025-09-08 18:33] VITALS: BP 125/62; PULSE 71; RESP 16; TEMP 36.6; O2SAT 100; BMI 27.6
--- OUTSIDE RECORDS SUMMARY | 2025-09-08 18:42 | XMS_ITS | Encounter Summary ---
Author Organization [facility] Address [address] [place] [address] Care Team Providers Care Dobby Loom Chain Pegger Name Role Phone Unavailable Primary Care Provider Unavailabl e Encounter Details Date Type Department Care Team (Late st Contact Info) Description 09/07/2025 External Device Data [facility] ABSTRACTION Provider, Abstract NO ADDRESS ON FILE Social History Tobacco Use Types Packs/Day Years Used Date Smoking Tobacco: Never Assessed Comments Unknown Sex and Gender Information Value Date Recorded Sex Assigned at Not on file Legal Sex Female 9:15 AM CDT Gender Identity Not on file Sexual Orientation Not on file documented as of this encounter Plan of Treatment Not on file documented as of this encounter Visit Diagnoses Not on filedocumented in this encounter
--- OUTSIDE RECORDS SUMMARY | 2025-09-08 18:42 | XMS_ITS | Encounter Summary ---
Author Organization [facility] Address [address] [place] [address] Care Team Providers Care Lacing Operator Name Role Phone Unavailable Primary Care Provider Unavailabl e Encounter Details Date Type Department Care Team (Late st Contact Info) Description 08/31/2025 External Device Data [facility] ABSTRACTION Provider, Abstract [...]
--- OUTSIDE RECORDS SUMMARY | 2025-09-08 18:42 | XMS_ITS | Clinical Summary ---
Author Organization [facility] Address [address] [address] Phone Care Team Providers Care Street Sprinkler Name Role Phone Unavailable Primary Care Provider Unavailabl e Encounters Date Type Department Care Team Description 09/07/2025 External Device Data [facility] ABSTRACTION Provider, Abstract 08/31/2025 External Device Data [facility] ABSTRACTION Provider, Abstract 08/17/2025 External Device Data [facility] ABSTRACTION Provider, Abstract 08/10/2025 External Device Data [facility] ABSTRACTION Provider, Abstract 08/10/2025 External Device Data [facility] ABSTRACTION Provider, Abstract 07/31/2025 12:35 AM CENTER MEDICAL DIRECTOR - 07/31/2025 11:59 PM CENTER MEDICAL DIRECTOR Hospital Encounter [facility] [address] [address] Ambulance, [facility] Discharge Disposition: Short term general hospital from Last 3 Months Social History Tobacco Use Types Packs/Day Years [...] Q 5 years 1995 PNEUMOCOCCAL VACCINE 50+ YEA RS (1 of 1 - PCV) 2000 ZOSTER VACCINE (1 of 2) 2000 OSTEOPOROSIS SCREENING 2015 INFLUENZA VACCINE (#1) 2025 06/24/2021 COVID-19 Vaccine (2024- season) 2025 10/12/2021, 11/15/2020, 10/18/2020 RSV VACCINE (60+ or ) (1 - 1-dose 75+ series) 2025 Insurance [employer] MEDICARE PART A AND B
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
[2025-09-08] MEDS: tetanus-dipt-pertussis 0.5 mL SDV IM (19:36)
[2025-09-08 19:38] VITALS: BP 131/66; PULSE 72; O2SAT 99
[2025-09-08 20:05] VITALS: BP 124/57; PULSE 71; O2SAT 100
[2025-09-08 20:12] VITALS: BP 130/52; PULSE 73; O2SAT 99
[2025-09-08] MEDS: tranexamic acid 1,000 MG/100 ML PREMIX 600 MG IV (20:16)
[2025-09-08 20:17] LABS: Hematocrit 37.1 % (36-47); Hemoglobin 12.30 g/dL (11.27-16.99); Mean Corpuscular HGB Conc 33.2 g/dL (30-55); Mean Corpuscular Hemoglobin 30.4 pg (27-33); Mean Corpuscular Volume 91.6 fl (85-98); Nucleated Red Blood Cells % 0 %; Platelet Count 218 10^3/cmm (157-399); Red Blood Count 4.05 10^6/uL (3.85-5.65); White Blood Count 11.46 10^3/uL (3.29-11.43)
[2025-09-08 20:19] VITALS: BP 112/86; PULSE 73; O2SAT 99
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
[2025-09-08 20:23] LABS: Lactic Sepsis W/Reflex 1.1 mmol/L (0.5-2.2)
[2025-09-08 20:24] LABS: Alanine Aminotransferase 53 U/L (0-33); Albumin Level 4.1 g/dL (3.5-5.2); Alkaline Phosphatase 124 U/L (35-105); Anion Gap 14.1 (5-19); Aspartate Amino Transferase 47 U/L (0-32); Blood Urea Nitrogen 11 mg/dL (8-23); Calcium 9.2 mg/dL (8.5-10.5); Carbon Dioxide 24 mmol/L (22-29); Chloride 105 mmol/L (98-107); Globulin 2.2 g/dL (1.3-4.6); Glucose 92 mg/dL (65-115); Osmolality Calculated 287 mOsm/kg (285-295); Potassium 4.1 mmol/L (3.5-5.1); Sodium 139 mmol/L (136-145); Total Protein 6.3 g/dL (6.6-8.7)
[2025-09-08 21:07] VITALS: BP 124/73; PULSE 84; O2SAT 100
== END 2025-09-08 21:09 | disposition short-term general hospital (02) ==
PROVIDERS: Emergency Provider Physician Assistant; PCP Family Medicine
DX: S06.6XAA Traumatic subarachnoid hemorrhage with loss of consciousness status unknown, initial encounter (principal); V89.2XXA Person injured in unspecified motor-vehicle accident, traffic, initial encounter; E11.9 Type 2 diabetes mellitus without complications; J44.9 Chronic obstructive pulmonary disease, unspecified; Z86.73 Personal history of transient ischemic attack (TIA), and cerebral infarction without residual deficits; I10 Essential (primary) hypertension
CPT/HCPCS: 70450; 70486; 71045; 72125; 73110; 80053; 83605; 85025; 90715; 96365; 99284; J9999